=== PATIENT | female | born 1960 | race Caucasian/White ===

== ENCOUNTER 2020-10-20 01:21 | Emergency (ER) | payer SELFPAY ==
[2020-10-20 01:24] VITALS: BP 180/76; PULSE 69; RESP 18; TEMP 36.4; O2SAT 95; BMI 29.6
--- NOTE | 2020-10-20 01:51 | ECG_ITS ---
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
[2020-10-20 01:52] VITALS: PULSE 60; RESP 18; O2SAT 95
--- NOTE | 2020-10-20 02:01 | ED_ITS ---
HPI - General Adult General: Chief complaint: General Medical Stated complaint: high blood pressure Time Seen by Provider: 10/20/20 01:52 History of Present Illness: HPI narrative: 60-year-old female comes in tonight with complaints of short of breath and some chest discomfort. Patient also has had elevated blood pressure throughout the day. Patient has a history of hypertension, hyperlipidemia, diabetes. Patient takes amlodipine, metoprolol tartrate glipizide, simvastatin. Patient does smoke cigarettes. Patient appears well. Patient's blood pressure was 170 at home. Patient refused chest x-ray stating that she does not believe that this has anything to do with her shortness of breath. Associated symptoms: Reports chest pain and dyspnea Review of Systems General: Reports: 10 or more systems reviewed and unremarkable except in HPI and below Card: Reports: chest pain Resp: Reports: dyspnea Physical Exam Const: COMMON NORMALS: no acute distress and patient oriented x3 GENERAL APPEARANCE: cooperative HENMT: COMMON NORMALS: normocephalic and Normal external nose present HEAD & SCALP: normal to inspection and normocephalic NOSE: Normal external nose present MOUTH: Normal oral and palatal mucosa present THROAT: posterior oropharynx normal Eye: GENERAL EYE: appearance normal, both eyes and all related structures Neck/C-Spine: COMMON NORMALS: full ROM Lymph: LYMPHATIC: no lymphadenopathy noted Chest: COMMONS NORMALS: normal inspection of the chest Resp: COMMON NORMALS: normal respiratory effort EFFORT & INSPECTION: Yes able to speak in complete sentences Cardio: COMMON NORMALS: regular rate and regular rhythm RATE: regular rate RHYTHM: regular rhythm GI: COMMON NORMALS: non-tender Back/Pelvis: COMMON NORMALS: thoracic and lumbar spine normal to inspection Extremity: COMMON NORMALS: normal to inspection (no edema) Neuro: COMMON NORMALS: patient oriented x3 and moves all extremities Psych: COMMON NORMALS: mental status grossly normal and cooperative Skin: COMMON NORMALS: no rashes or lesions noted GENERAL SKIN EXAM: no rashes or lesions noted Course Vital Signs: Vital signs: Vital Signs Temperature 97.6 F 10/20/20 01:24 Pulse Rate 60 10/20/20 01:52 Respiratory Rate 17 10/20/20 02:07 Blood Pressure 180/76 10/20/20 01:24 Pulse Oximetry 95 10/20/20 01:52 MDM - General Adult MDM Narrative: Medical decision making narrative: 60-year-old female comes in today with complaints of high blood pressure. Patient is also reported some shortness of breath and chest discomfort. On exam heart rate was regular, patient had some coarse lung sounds, no edema was noted in the lower extremities, vital signs noted to elevated blood pressure of 180/76. Differential diagnosis includes not limited to uncontrolled blood pressure, ACS, CHF. Patient refused to wait for laboratory results and had refused x-ray. Patient signed out AMA even though she was given the risks and benefits of staying. Lab Data: Labs: Lab Results 10/20/20 Range/Units 02:06 WBC 5.5 (4.0-10.0) 10^3/ uL RBC 4.28 (4.1-5.3) 10^6/u L Hgb 12.8 (11.5-15.3) g/dL Hct 39.4 (37.0-47.0) % MCV 92.1 (81-99) fL MCH 29.9 (28.0-34.0) pg MCHC 32.5 (30.0-36.0) g/dL RDW 12.6 (12.1-15.1) % Plt Count 254 (130-400) 10^3/c mm MPV 9.8 (7.4-10.4) fL Neut % (Auto) 45.4 % Lymph % (Auto) 42.1 % Cherry % (Auto) 7.0 % Eos % (Auto) 4.6 % Baso % (Auto) 0.7 % Neut # (Auto) 2.48 (1.8-7.7) 10^3/u L Lymph # (Auto) 2.3 (0.8-4.8) 10^3/u L Cherry # (Auto) 0.4 (0.2-0.9) 10^3/u L Eos # (Auto) 0.3 (0.0-0.8) 10^3/u L Baso # (Auto) 0.0 (0.0-0.1) 10^3/u L Nucleated RBC % (a uto) 0 % Nucleated RBCs # 0.0 /100WBC EKG Data^: EKG 1: Attestation: I personally reviewed and interpreted this EKG as follows: (2:00, EKG shows a sinus rhythm with sinus arrhythmia, slight irregular rate at [address] elevation no ectopy noted.) Discharge Plan Discharge Prescriptions: No Action amlodipine 5 mg PO DAILY RF: 0 Coding Level of Care Code ED [place] Feeder for [place] Fwd Exam Comprehensive
[2020-10-20 02:07] VITALS: RESP 17
[2020-10-20 02:20] LABS: Basophils % 0.7 %; Eosinophils # 0.3 10^3/uL (0.0-0.8); Eosinophils % 4.6 %; Hematocrit 39.4 % (37.0-47.0); Hemoglobin 12.8 g/dL (11.5-15.3); Lymphocytes # 2.3 10^3/uL (0.8-4.8); Lymphocytes % 42.1 %; Mean Corpuscular HGB Conc 32.5 g/dL (30.0-36.0); Mean Corpuscular Hemoglobin 29.9 pg (28.0-34.0); Mean Corpuscular Volume 92.1 fL (81-99); Mean Platelet Volume 9.8 fL (7.4-10.4); Monocytes # 0.4 10^3/uL (0.2-0.9); Neutrophils # 2.48 10^3/uL (1.8-7.7); Neutrophils % 45.4 %; Nucleated Red Blood Cells % 0 %; Platelet Count 254 10^3/cmm (130-400); Red Blood Count 4.28 10^6/uL (4.1-5.3); Red Cell Distribution Width 12.6 % (12.1-15.1); White Blood Count 5.5 10^3/uL (4.0-10.0)
[2020-10-20 02:41] LABS: Troponin(5th) Baseline 15 ng/L (0-10)
[2020-10-20 02:50] LABS: Alanine Aminotransferase 22 U/L (0-33); Albumin Level 4.3 g/dL (3.5-5.2); Alkaline Phosphatase 96 IU/L (35-105); Aspartate Amino Transferase 18 U/L (0-32); Blood Urea Nitrogen 18 mg/dL (6-20); Calcium 9.1 mg/dL (8.5-10.5); Carbon Dioxide 25 mmol/L (22-29); Chloride 103 mmol/L (98-107); Globulin 2.5 g/dL (1.3-4.6); Glomerular Filtration Rate 102.3 mL/min (90-130); Glucose 128 mg/dL (65-115); NT Pro B Type Natriuretic Pept 214 pg/mL (0-125); Osmolality Calculated 290 mOsm/kg (285-295); Sodium 138 mmol/L (136-145); Total Bilirubin 0.2 mg/dL (0.15-1.2); Total Protein 6.8 g/dL (6.6-8.7)
== END 2020-10-20 02:45 | disposition left against medical advice (07) ==
PROVIDERS: Emergency Provider Nurse Practitioner Family; PCP Family Medicine
DX: R06.02 Shortness of breath (principal); R07.89 Other chest pain
CPT/HCPCS: 80053; 83880; 84484; 85025; 93005; 99283

== ENCOUNTER 2021-01-23 08:25 | Outpatient (CLI) | payer SELFPAY ==
--- NOTE | 2021-01-23 08:33 | XR_ITS ---
WS: [id number] Lumbar spine, 3 views, 01/23/2021 Clinical Data: DORSALGIA Comparison: None. Findings: No compression fractures or subluxation is seen. There is degenerative disc narrowing at all lumbar l evels except L3-L4.. The transverse processes and SI joints are normal. There is a dextroscoliosis. Minimal osteoarthritic change of all the lumbar vertebral bodies is noted . There are clips in the right upper quadrant from a cholecystectomy. XR/XR lumbar spine 2-3V* [id number] Impression: 1. Multiple levels of degenerative disc narrowing. 2. Minimal dextroscoliosis and osteoarthritis.
== END 2021-01-23 08:26 | disposition home or self-care (01) ==
LOC: RAD 08:29
PROVIDERS: PCP Family Medicine; Visit Provider Family Medicine
DX: M54.5 Low back pain (principal)
CPT/HCPCS: 72100

== ENCOUNTER 2021-04-17 04:06 | Emergency (ER) | payer SELFPAY ==
[2021-04-17 04:14] VITALS: PULSE 92; RESP 21; O2SAT 92; BMI 29.2
--- NOTE | 2021-04-17 04:18 | ECG_ITS ---
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 Measurements Intervals [place] Rate: 58 P: 70 UT: 170 QRS: 53 QRSD: 115 T: 47 QT: 455 QTc: 450 Interpretive Statements SINUS BRADYCARDIA WITH OCCASIONAL VENTRICULAR PREMATURE COMPLEXES POSSIBLE ANTERIOR MYOCARDIAL INFARCTION , OF INDETERMINATE AGE [30 ms Q WAVE IN V3/V4, OR R < 0.2 mV IN V4] Compared to ECG 10/20/2020 01:41:10 Ventricular premature complex(es) now present Myocardial infarct finding now present Sinus rhythm no longer present Sinus arrhythmia no longer present Electronically Signed On 04-17-2021 19:34:52 CDT by Hernandez Hunt M.D. [id number] f
--- NOTE | 2021-04-17 04:18 | XRR_ITS ---
PROCEDURE INFORMATION: Exam: XR Chest Exam date and time: 04/17/2021 4:18 AM Age: 60 years old Clinical indication: Cough and shortness of breath; Prior surgery; Surgery type: Open heart; Patient HX: Cough with SOB. Patient states diagnosed with bronchitis on Thursday. TECHNIQUE: Imaging protocol: XR of the chest. Views: 1 view. COMPARISON: CR Chest 1 [place] [id number] 12/19/2014 5:59 PM FINDINGS: Lungs: Hyperinflation of the lungs with changes of emphysema. Increased perihilar markings and peribronchial cuffing. No cosolidation. Pleural spaces: Unremarkable. No pleural effusion. No pneumothorax. Heart/Mediastinum: No cardiomegaly. Bones/joints: Previous median sternotomy. XR/XR chest 1V portable [id number] IMPRESSION: Findings suggestive of viral and/or reactive airway disease.
--- NOTE | 2021-04-17 04:28 | ED_ITS ---
HPI - SOB/Dyspnea General: Chief Complaint: Shortness of Breath/Dyspnea Stated Complaint: SOB\Blood Pressure High Has Bronchitis Time Seen by Provider: 04/17/21 04:14 Source: patient Mode of arrival: ambulatory Limitations: no limitations History of Present Illness: HPI Narrative: 60-year-old female states that over the last 4 to 5 days been having cough congestion's and increased wheezing. She is a smoker denies having echo vaccine. She states she was seen yesterday by her PCP had no x-ray work testing was diagnosed bronchitis start azithromycin prednisone. States she has had worsening dyspnea tonight. Here she is able to speak and full sentences. She denies any chest pain. States she felt like she had high blood pressure but did not check it at home. Associated symptoms: Deny abdominal pain, chest pain, fever(s), nausea or vomiting Review of Systems Const: Denies: fever(s), chills, body aches or change in appetite Eyes: Denies: blurry vision or eye discomfort ENMT: Denies: throat pain or dental pain Card: Denies: chest pain Resp: Reports: dyspnea, non-productive cough and wheezing GI: Denies: abdominal pain, nausea, vomiting or diarrhea : Denies: dysuria Musc: Denies: neck pain or back pain Skin/Breast: Denies: rash Neuro: Denies: headache(s) Psych: Denies: depression Tung/Lymph: Denies: easy bruising All/Imm: Denies: urticaria PFSH ED PFSH: Social History Smoking and tobacco status: current every day smoker Physical Exam Const: COMMON NORMALS: no acute distress, patient oriented x3 and healthy appearing HENMT: COMMON NORMALS: normocephalic and atraumatic HEAD & SCALP: normocephalic and atraumatic Eye: COMMON NORMALS: Equal, round and reactive pupils present and EOMs intact bilaterally PUPIL: Yes Equal, round and reactive pupils present Neck/C-Spine: COMMON NORMALS: full ROM and supple Chest: COMMONS NORMALS: normal inspection of the chest and normal palpation of entire chest wall Resp: COMMON NORMALS: normal respiratory effort, No retractions and No use of accessory muscles AUSCULTATION: wheezes Cardio: COMMON NORMALS: regular rate, regular rhythm and No murmurs present (Cardio) RATE: regular rate RHYTHM: regular rhythm GI: COMMON NORMALS: Normal to inspection, nondistended, normoactive bowel sounds present, Soft to palpation, non-tender and no masses PALPATION: Yes Soft to palpation Extremity: COMMON NORMALS: normal to inspection and full ROM Neuro: COMMON NORMALS: patient oriented x3, moves all extremities and no focal motor deficits Psych: COMMON NORMALS: mental status grossly normal, Normal thought process present and cooperative THOUGHT PROCESS: Normal thought process present Skin: COMMON NORMALS: no rashes or lesions noted and no wounds GENERAL SKIN EXAM: no rashes or lesions noted Course Vital Signs: Vital signs: Vital Signs Pulse Rate 63 04/17/21 05:10 Respiratory Rate 17 04/17/21 05:10 Pulse Oximetry 93 04/17/21 05:10 MDM - SOB/Dyspnea MDM Narrative: Medical decision making narrative: Patient presents here with cough congestion likely an upper respiratory infection. X-ray shows no pneumonia patient's Covid and blood work are all negative. She is well-appearing here. She feels much improved here after breathing treatment. She is to continue her steroids and antibiotic and follow-up with PCP and return if worsening. She understands agrees to plan. Lab Data: Labs: Lab Results 04/17/21 04/17/21 04/17/21 Range/Units 04:27 04:27 04:27 WBC 8.0 (4.0-10.0) 10^3/ uL RBC 4.41 (4.1-5.3) 10^6/u L Hgb 13.3 (11.5-15.3) g/dL Hct 39.9 (37.0-47.0) % MCV 90.5 (81-99) fl MCH 30.2 (28.0-34.0) pg MCHC 33.3 (30.0-36.0) g/dL RDW 12.2 (12.1-15.1) % Plt Count 265 (130-400) 10^3/c mm MPV 9.5 (7.4-10.4) fL Neut % (Auto) 51.7 % Lymph % (Auto) 38.3 % [place] % (Auto) 6.8 % Eos % (Auto) 2.5 % Baso % (Auto) 0.3 % Neut # (Auto) 4.13 (1.8-7.7) 10^3/u L Lymph # (Auto) 3.1 (0.8-4.8) 10^3/u L [place] # (Auto) 0.5 (0.2-0.9) 10^3/u L Eos # (Auto) 0.2 (0.0-0.8) 10^3/u L Baso # (Auto) 0.0 (0.0-0.1) 10^3/u L Nucleated RBC % (a uto) 0 % Nucleated RBCs # 0.0 /100WBC Sodium 136 (136-145) mmol/L Potassium 4.0 (3.5-5.1) mmol/L Chloride 99 (98-107) mmol/L Carbon Dioxide 27 (22-29) mmol/L Anion Gap 14.0 (5-19) BUN 17 (6-20) mg/dL Creatinine 0.5 (0.5-0.9) mg/dL GFR Calculation 126.3 (90-130) mL/min Glucose 127 H (65-115) mg/dL Calculated Osmolal ity 285 (285-295) mOsm/k g Calcium 9.5 (8.5-10.5) mg/dL Total Bilirubin 0.4 (0.15-1.2) mg/dL AST 17 (0-32) U/L ALT 20 (0-33) U/L Alkaline Phosphata se 109 H (35-105) IU/L NT-Pro-B Natriuret Pep 322 H (0-125) pg/mL Total Protein 7.2 (6.6-8.7) g/dL Albumin 4.4 (3.5-5.2) g/dL Globulin 2.8 (1.3-4.6) g/dL SARS-CoV-2 Ag (Rap id) Negative (Negative) Imaging Data^: CXR: Attestation: I personally reviewed and interpreted this imaging study as follows: My impression: No acute abnormality EKG Data^: EKG 1: Attestation: I personally reviewed and interpreted this EKG as follows: EKG Interpretation Date: 04/17/21 EKG interpretation time: 04:45 Interpretation: sinus sade hr [address] or t wave abnormalities qrs 115 qtc 452 Discharge Plan Discharge Patient Disposition: Home Clinical Impression: Upper respiratory infection Qualifiers: URI type: unspecified URI Qualified Code(s): J06.9 - Acute upper respiratory infection, unspecified Condition: Stable Prescriptions: No Action glyburide 5 mg tablet 5 mg PO DAILY RF: 0 levothyroxine 13 mcg capsule 13 mcg PO DAILY RF: 0 lisinopril 10 mg tablet 10 mg PO DAILY RF: 0 simvastatin 10 mg tablet 10 mg PO DAILY RF: 0 albuterol sulfate [Ventolin HFA] 90 mcg/actuation HFA aerosol inhaler 2 puff inhalation Q6H PRNRF: 0 metoprolol tartrate 25 mg tablet 25 mg PO BID RF: 0 azithromycin 250 mg tablet See Rx Instructions PO .COMPLEX Qty: 6 RF: 0 prednisone 20 mg tablet 40 mg PO DAILY 5 Days Qty: 10 RF: 0 amlodipine 5 mg PO DAILY RF: 0 Discharge Orders: Discharge ED (Routine); Ordered 04/17/21 Ordered By: Jimi Swain Referrals: Michelle Motta MD [Primary Care Provider] - 1-3 days Discharge Diet: Advance as tolerated Discharge Activity: Resume usual activity Patient Instructions: Upper Respiratory Infection (ED) Coding Level of Care Code ED Delivery Department Supervisor for [place] Fwd Exam Comprehensive
[2021-04-17 04:36] VITALS: PULSE 65; RESP 18; O2SAT 92
[2021-04-17 04:37] LABS: Basophils % 0.3 %; Eosinophils # 0.2 10^3/uL (0.0-0.8); Eosinophils % 2.5 %; Hematocrit 39.9 % (37.0-47.0); Hemoglobin 13.3 g/dL (11.5-15.3); Lymphocytes # 3.1 10^3/uL (0.8-4.8); Lymphocytes % 38.3 %; Mean Corpuscular HGB Conc 33.3 g/dL (30.0-36.0); Mean Corpuscular Hemoglobin 30.2 pg (28.0-34.0); Mean Corpuscular Volume 90.5 fl (81-99); Mean Platelet Volume 9.5 fL (7.4-10.4); Monocytes # 0.5 10^3/uL (0.2-0.9); Monocytes % 6.8 %; Neutrophils # 4.13 10^3/uL (1.8-7.7); Neutrophils % 51.7 %; Nucleated Red Blood Cells % 0 %; Platelet Count 265 10^3/cmm (130-400); Red Blood Count 4.41 10^6/uL (4.1-5.3); Red Cell Distribution Width 12.2 % (12.1-15.1)
[2021-04-17 05:00] LABS: Alanine Aminotransferase 20 U/L (0-33); Albumin Level 4.4 g/dL (3.5-5.2); Alkaline Phosphatase 109 IU/L (35-105); Aspartate Amino Transferase 17 U/L (0-32); Blood Urea Nitrogen 17 mg/dL (6-20); Calcium 9.5 mg/dL (8.5-10.5); Carbon Dioxide 27 mmol/L (22-29); Chloride 99 mmol/L (98-107); Globulin 2.8 g/dL (1.3-4.6); Glomerular Filtration Rate 126.3 mL/min (90-130); Glucose 127 mg/dL (65-115); NT Pro B Type Natriuretic Pept 322 pg/mL (0-125); Osmolality Calculated 285 mOsm/kg (285-295); Sodium 136 mmol/L (136-145); Total Bilirubin 0.4 mg/dL (0.15-1.2); Total Protein 7.2 g/dL (6.6-8.7)
[2021-04-17 05:02] LABS: SARS Covid-2 Antigen Negative (Negative)
[2021-04-17 05:10] VITALS: PULSE 63; RESP 17; O2SAT 93
[2021-04-17] MEDS: ipratropium-albuterol 3 mL Neb INHALATION (05:10)
[2021-04-17 05:17] VITALS: PULSE 72
[2021-04-17 05:31] VITALS: BP 137/78; PULSE 76; RESP 20; O2SAT 91
== END 2021-04-17 05:34 | disposition home or self-care (01) ==
PROVIDERS: Emergency Provider Emergency Medicine; PCP Family Medicine
DX: J06.9 Acute upper respiratory infection, unspecified (principal); F17.210 Nicotine dependence, cigarettes, uncomplicated; Z20.822 Contact with and (suspected) exposure to COVID-19
CPT/HCPCS: 71045; 80053; 83880; 85025; 87426; 93005; 94640; 99283

== ENCOUNTER 2025-04-20 19:58 | Emergency (ER) | payer SELFPAY ==
[2025-04-20] VITALS (7 sets, daily range): BP systolic 117–151; BP diastolic 67–75; PULSE 74–81; RESP 16–19; TEMP 36.7; O2SAT 91–93; BMI 32.2
--- NOTE | 2025-04-20 20:02 | XRR_ITS ---
PROCEDURE INFORMATION: Exam: XR Chest Exam date and time: 04/20/2025 8:06 PM Age: 64 years old Clinical indication: Cough and dyspnea; Additional info: Dyspnea/cough TECHNIQUE: Imaging protocol: Radiologic exam of the chest. Views: 1 view. COMPARISON: CR XR chest 1V portable [id number] 04/17/2021 4:14 AM FINDINGS: Lungs: Right mid lung field 6.9 cm mass, further evaluation with chest CT advised. Bibasilar airspace infiltrates. Pleural spaces: Unremarkable. No pleural effusion. No pneumothorax. Heart/Mediastinum: Cardiomegaly. Bones/joints: Sternotomy wires. XR/XR chest 1V portable [id number] IMPRESSION: 1. Right mid lung field 6.9 cm mass, further evaluation with chest CT advised. 2. Cardiomegaly. 3. Bibasilar airspace infiltrates. 4. Sternotomy wires.
--- NOTE | 2025-04-20 20:02 | CTR_ITS ---
PROCEDURE INFORMATION: Exam: CTA Chest With Contrast Exam date and time: 04/20/2025 8:52 PM Age: 64 years old Clinical indication: Cough and shortness of breath and other: Hemoptysis TECHNIQUE: Imaging protocol: Computed tomographic angiography of the chest with contrast. Exam focused on the arteries. 3D rendering (Not supervised by radiologist): MIP and/or 3D reconstructed images were created by the technologist. Radiation optimization: All CT scans at this facility use at least one of these dose optimization techniques: automated exposure control; mA and/or kV adjustment per patient size (includes targeted exams where dose is matched to clinical indication); or iterative reconstruction. Contrast material: OMNI 350; Contrast volume: 100 ml; Contrast route: INTRAVENOUS (IV); COMPARISON: CR (CHEST, ) 04/20/2025 8:06 PM RADIATION DOSE METRICS: Total DLP (mGy-cm): 381.01 FINDINGS: Pulmonary arteries: Normal. No pulmonary emboli. Aorta: Unremarkable. No aortic aneurysm. No aortic dissection. Lungs: Unremarkable. No consolidation. No masses. Pleural spaces: Unremarkable. No pneumothorax. No pleural effusion. Heart: Cardiomegaly. Coronary artery atherosclerotic calcifications. Lymph nodes: Right hilar mass extending into the right lower lobe measuring up to 7 cm encasing the right hilar vascular and airway structures with associated right hilar adenopathy and enlarged lymph nodes measuring up to 14.5 cm consistent with a malignant process, tissue correlation advised. Liver: Hepatic steatosis. Gallbladder and biliary ducts: Cholecystectomy. Bones/joints: Sternotomy changes. Soft tissues: Unremarkable. CT/CT angio chest PE protcl [id number] IMPRESSION: 1. Right hilar mass extending into the right lower lobe measuring up to 7 cm encasing the right hilar vascular and airway structures with associated right hilar adenopathy and enlarged lymph nodes measuring up to 14.5 cm consistent with a malignant process, tissue correlation advised. 2. Hepatic steatosis. 3. Cholecystectomy.
--- NOTE | 2025-04-20 20:02 | ECG_ITS ---
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 Measurements Intervals [place] Rate: 74 P: 64 AR: 151 QRS: 22 QRSD: 102 T: 63 QT: 406 QTc: 451 Interpretive Statements SINUS RHYTHM POSSIBLE ANTERIOR MYOCARDIAL INFARCTION , PROBABLY OLD [30 ms Q WAVE IN V3/V4, OR R < 0.2 mV IN V4] Compared to ECG 04/17/2021 04:45:01 Sinus bradycardia no longer present Ventricular premature complex(es) no longer present Myocardial infarct finding still present Electronically Signed On 04-21-2025 09:10:50 CDT by Bola Lowery M.D. [email or web address] [id number]
--- NOTE | 2025-04-20 20:06 | ED_ITS ---
HPI - General Adult 2 General: Chief complaint: Shortness of Breath/Dyspnea Stated complaint: SOB coughing up blood Time Seen by Provider: 04/20/25 20:01 History of Present Illness: 64-year-old female presents to the [facility] room last several days she has had cough and wheezing she is now having some blood tinged mucus at times. No chest pain. No fever sweats or chills. Patient is a former smoker. No history of DVT or PE. Associated symptoms: Deny chest pain, dyspnea or rash Related Data Home Medications ?Medication ?Instructions ?Recorded ?Confirmed albuterol sulfate 90 mcg/actuation 2 puff inhalation Q 6H PRN 12/15/20 02/06/25 aerosol inhaler (Ventolin HFA) metoprolol tartrate 25 mg tablet 25 mg PO BID 04/15/21 02/06/25 hydrocodone 5 mg-acetaminophen 500 tab PO 02/14/24 mg tablet amlodipine 10 mg tablet mg PO 02/06/25 02/06/25 aspirin 81 mg tablet,delayed 81 mg PO DAILY 02/06/25 0 02/06/25 release (Adult Low Dose Aspirin) glipizide 5 mg tablet mg PO 02/06/25 02/06/25 levothyroxine 88 mcg tablet mcg PO 02/06/25 02/06/25 lisinopril 20 mg tablet mg PO 02/06/25 02/06/25 simvastatin 20 mg tablet mg PO 02/06/25 02/06/25 Previous Rx's ?Medication ?Instructions ?Recorded azithromycin 500 mg tablet 500 mg PO DAILY 5 days #5 t abs 02/06/25 Allergies Allergy/AdvReac Type Severity Reaction Status Date / Time amoxicillin Allergy ALGY-Hives Verified 04/20/25 20:18 Review of Systems 2 Const: Denies: fever(s) or chills Card: Denies: chest pain Resp: Reports: productive cough and hemoptysis; Denies: dyspnea GI: Denies: abdominal pain : Denies: dysuria, urinary frequency or urinary urgency Musc: Denies: neck pain or back pain Skin/Breast: Denies: rash PFSH ED 2 PFSH: Social History Smoking and tobacco/nicotine status: current every day tobacco/nicotine user Physical Exam 2 Const: COMMON NORMALS: no acute distress GENERAL APPEARANCE: cooperative and comfortable ORIENTATION/CONSCIOUSNESS: Yes awake, Yes oriented to person, Yes oriented to place and Yes oriented to time HENMT: COMMON NORMALS: normocephalic, atraumatic and hearing grossly normal bilaterally HEAD & SCALP: normocephalic and atraumatic Resp: COMMON NORMALS: normal respiratory effort, No retractions, No use of accessory muscles and clear to auscultation bilaterally AUSCULTATION: clear to auscultation bilaterally Cardio: COMMON NORMALS: regular rate, regular rhythm and No murmurs present (Cardio) RATE: regular rate RHYTHM: regular rhythm GI: COMMON NORMALS: Soft to palpation and No hepatosplenomegaly present A USCULTATION: Yes normoactive bowel sounds PALPATION: Yes Soft to palpation, No Tenderness to palpation present (GI), No Guarding due to palpation present (GI) and Yes No hepatosplenomegaly present Extremity: COMMON NORMALS: normal to inspection, capillary refill normal, no clubbing, cyanosis or edema, no calf tenderness and no pedal edema Neuro: SENSORIUM/ORIENTATION: Yes oriented to person, Yes oriented to place and Yes oriented to time Skin: COMMON NORMALS: no rashes or lesions noted GENERAL SKIN EXAM: no rashes or lesions noted Course 2 Vital Signs: Vital signs: Vital Signs Temperature 98.1 F 04/20/25 21:30 Pulse Rate 74 04/20/25 22:41 Respiratory Rate 16 04/20/25 22:00 Blood Pressure 151/67 04/20/25 22:41 Pulse Oximetry 93 04/20/25 22:41 Oxygen Delivery Me thod Room Air 04/20/25 20:17 MDM - General Adult Medical Decision Making CT shows right lung mass Is 7 cm encasing the hilar vasculature and airway structures. There is associated enlarged lymphadenopathy. Reviewed findings with the patient we will refer her to the interventional pulmonary clinic for further evaluation and diagnosis. Medical Records I reviewed the patient's medical records. Lab Data I reviewed the patient's lab results. 04/20/25 20:12 04/20/25 20:12 Radiology Impressions Chest CTA 04/20/25 20:02 IMPRESSION: 1. Right hilar mass extending into the right lower lobe measuring up to 7 cm encasing the right hilar vascular and airway structures with associated right hilar adenopathy and enlarged lymph nodes measuring up to 14.5 cm consistent with a malignant process, tissue correlation advised. 2. Hepatic steatosis. 3. Cholecystectomy. Chest X-Ray 04/20/25 20:02 IMPRESSION: 1. Right mid lung field 6.9 cm mass, further evaluation with chest CT advised. 2. Cardiomegaly. 3. Bibasilar airspace infiltrates. 4. Sternotomy wires. Laboratory Results WBC 5.70 10^3/uL (3.29-11.43) 04/20/25 20:12 RBC 4.41 10^6/uL (3.85-5.65) 04/20/25 20:12 Hgb 12.60 g/dL (11.27-16.99) 04/20/25 20:12 Hct 37.8 % (36-47) 04/20/25 20:12 MCV 85.7 fl (85-98) 04/20/25 20:12 MCH 28.6 pg (27-33) 04/20/25 20:12 MCHC 33.3 g/dL (30-55) 04/20/25 20:12 RDW 12.9 % (12.1-15.1) 04/20/25 20:12 Plt Count 298 10^3/cmm (157-399) 04/20/25 20:12 MPV 9.9 fL (7.4-10.4) 04/20/25 20:12 Neut % (Auto) 46.6 % 04/20/25 20:12 Lymph % (Auto) 40.0 % 04/20/25 20:12 [place] % (Auto) 6.8 % 04/20/25 20:12 Eos % (Auto) 5.3 % 04/20/25 20:12 Baso % (Auto) 0.9 % 04/20/25 20:12 Neut # (Auto) 2.66 10^3/uL (1.8-7.7) 04/20/25 20:12 Lymph # (Auto) 2.3 10^3/uL (0.8-4.8) 04/20/25 20:12 [place] # (Auto) 0.4 10^3/uL (0.2-0.9) 04/20/25 20:12 Eos # (Auto) 0.3 10^3/uL (0.0-0.8) 04/20/25 20:12 Baso # (Auto) 0.1 10^3/uL (0.0-0.1) 04/20/25 20:12 Nucleated RBC % (auto) 0 % 04/20/25 20:12 Nucleated RBCs # 0.0 /100WBC 04/20/25 20:12 Sodium 137 mmol/L (136-145) 04/20/25 20:12 Potassium 4.3 mmol/L (3.5-5.1) 04/20/25 20:12 Chloride 100 mmol/L (98-107) 04/20/25 20:12 Carbon Dioxide 25 mmol/L (22-29) 04/20/25 20:12 Anion Gap 16.3 (5-19) 04/20/25 20:12 BUN 15 mg/dL (8-23) 04/20/25 20:12 Creatinine 0.8 mg/dL (0.5-0.9) 04/20/25 20:12 GFR Calculation 72.4 mL/min (90-130) L 04/20/25 20:12 Glucose 318 mg/dL (65-115) H 04/20/25 20:12 Calculated Osmolality 297 mOsm/kg (285-295) H 04/20/25 20:12 Calcium 9.3 mg/dL (8.5-10.5) 04/20/25 20:12 Total Bilirubin 0.3 mg/dL (0.15-1.2) 04/20/25 20:12 AST 15 U/L (0-32) 04/20/25 20:12 ALT 19 U/L (0-33) 04/20/25 20:12 Alkaline Phosphatase 146 U/L (35-105) H 04/20/25 20:12 Total Protein 7.5 g/dL (6.6-8.7) 04/20/25 20:12 Albumin 3.9 g/dL (3.5-5.2) 04/20/25 20:12 Globulin 3.6 g/dL (1.3-4.6) 04/20/25 20:12 All radiology interpretation(s) finalized by discharge EKG Data EKG 1: Interpretation: EKG 04/20/2025 sinus rhythm rate of 74 irritable 151 QTc 451. Unchanged from previous EKG 04/17/2021 Computer generated interpretation: Chest CTA 04/20/25 20:02 IMPRESSION: 1. Right hilar mass extending into the right lower lobe measuring up to 7 cm encasing the right hilar vascular and airway structures with associated right hilar adenopathy and enlarged lymph nodes measuring up to 14.5 cm consistent with a malignant process, tissue correlation advised. 2. Hepatic steatosis. 3. Cholecystectomy. Chest X-Ray 04/20/25 20:02 IMPRESSION: 1. Right mid lung field 6.9 cm mass, further evaluation with chest CT advised. 2. Cardiomegaly. 3. Bibasilar airspace infiltrates. 4. Sternotomy wires. Discharge Plan Discharge Patient Disposition: Home Clinical Impression: Mass of right lung Condition: Stable Prescriptions: No Action albuterol sulfate [Ventolin HFA] 90 mcg/actuation HFA aerosol inhaler 2 puff inhalation Q6H PRN metoprolol tartrate 25 mg tablet 25 mg PO BID hydrocodone-acetaminophen 5-500 mg tablet PO lisinopril 20 mg tablet PO levothyroxine 88 mcg tablet PO amlodipine 10 mg tablet PO simvastatin 20 mg tablet PO glipizide 5 mg tablet PO aspirin [Adult Low Dose Aspirin] 81 mg tablet,delayed release (DR/EC) 81 mg PO DAILY azithromycin 500 mg tablet 500 mg PO DAILY 5 Days Qty: 5 0RF Discharge Orders: Discharge ED (Routine); Ordered 04/20/25 Ordered By: Yosef Hylton Discharge Diet: Usual diet Discharge Activity: Resume usual activity Patient Instructions: Opioid Safety, Pain Management, Patient Portal & Tyler Instructions Activity Restrictions/Additional Instructions: Thank you for choosing [facility] for your healthcare needs today. It is very important that you follow up as instructed or that you return to the Emergency Department should you have concerns or if your condition changes or worsens in any way. Emergency department visits are focused on emergent conditions, in some cases you may require further evaluation on an outpatient basis. You were seen in the emergency room with complaints of coughing up blood. CT evaluation shows you do not have a blood clot in the lungs however there is a mass in the right lung that we will need further evaluation. marketing automation manager will make arrangements for you to follow-up with the interventional computational chemist in the clinic. They will work with you to have this mass biopsied to get a definitive diagnosis. (Please note that included in your discharge packet is information concerning opioid safety and pain management. This information is given to all patients were discharged from the ER regardless of their discharge diagnosis or the medicines they usually take or are prescribed.) Print Language: Syriac Coding Level of Care Code ED Bellows Filler for Mark Pepe
[2025-04-20 20:35] LABS: Hematocrit 37.8 % (36-47); Hemoglobin 12.60 g/dL (11.27-16.99); Mean Corpuscular HGB Conc 33.3 g/dL (30-55); Mean Corpuscular Hemoglobin 28.6 pg (27-33); Mean Corpuscular Volume 85.7 fl (85-98); Nucleated Red Blood Cells % 0 %; Platelet Count 298 10^3/cmm (157-399); Red Blood Count 4.41 10^6/uL (3.85-5.65); White Blood Count 5.70 10^3/uL (3.29-11.43)
[2025-04-20 20:44] LABS: Alanine Aminotransferase 19 U/L (0-33); Albumin Level 3.9 g/dL (3.5-5.2); Alkaline Phosphatase 146 U/L (35-105); Anion Gap 16.3 (5-19); Aspartate Amino Transferase 15 U/L (0-32); Blood Urea Nitrogen 15 mg/dL (8-23); Calcium 9.3 mg/dL (8.5-10.5); Carbon Dioxide 25 mmol/L (22-29); Chloride 100 mmol/L (98-107); Creatinine Clr Calc Pharmacy 65.0378; Globulin 3.6 g/dL (1.3-4.6); Glucose 318 mg/dL (65-115); Osmolality Calculated 297 mOsm/kg (285-295); Potassium 4.3 mmol/L (3.5-5.1); Sodium 137 mmol/L (136-145); Total Protein 7.5 g/dL (6.6-8.7)
[2025-04-20] MEDS: iohexol 350 mg/mL 500 mL Btl (per mL) IV (21:12)
== END 2025-04-20 22:42 | disposition home or self-care (01) ==
PROVIDERS: Emergency Provider Family Medicine
DX: R06.02 Shortness of breath (principal); R05.9 Cough, unspecified; R06.2 Wheezing; R91.8 Other nonspecific abnormal finding of lung field; Z79.82 Long term (current) use of aspirin; Z72.0 Tobacco use
CPT/HCPCS: 71045; 71275; 80053; 85025; 93005; 99285

== ENCOUNTER → 2025-04-24 14:18 | Outpatient (BNVA) | payer MEDICAID, SELFPAY | PROVIDERS: Visit Provider Internal Medicine | DX: Z53.9 Procedure and treatment not carried out, unspecified reason (principal) | CPT/HCPCS: 99204; 99999 ==

== ENCOUNTER 2025-04-26 13:46 | Outpatient (CLI) | payer SELFPAY | END 2025-04-26 13:47 | disposition home or self-care (01) | LOC: RAD 13:47 | PROVIDERS: Visit Provider Internal Medicine | DX: R06.02 Shortness of breath (principal) | CPT/HCPCS: 93306 ==

== ENCOUNTER 2025-04-29 18:34 | Emergency (ER) | payer MEDICAID, SELFPAY ==
[2025-04-29] VITALS (7 sets, daily range): BP systolic 95–130; BP diastolic 55–97; PULSE 65–73; RESP 20; TEMP 36.7; O2SAT 90–94; BMI 31.0
--- NOTE | 2025-04-29 19:55 | XRR_ITS ---
PROCEDURE INFORMATION: Exam: XR Chest Exam date and time: 04/29/2025 8:38 PM Age: 64 years old Clinical indication: Shortness of breath; Additional info: SOB TECHNIQUE: Imaging protocol: Radiologic exam of the chest. Views: 1 view. COMPARISON: CT angio chest PE protcl [id number] 04/20/2025 8:52 PM FINDINGS: Lungs: Redemonstrated right hilar mass. No new focal consolidation. Pleural spaces: Unremarkable. No pleural effusion. No pneumothorax. Heart/Mediastinum: Unremarkable. No cardiomegaly. Bones/joints: Unremarkable. XR/XR chest 1V portable [id number] IMPRESSION: 1. No acute cardiopulmonary findings. 2. Redemonstrated right hilar mass.
--- NOTE | 2025-04-29 20:00 | ECG_ITS ---
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 Measurements Intervals [place] Rate: 72 P: 57 NH: 147 QRS: 15 QRSD: 100 T: 47 QT: 408 QTc: 449 Interpretive Statements SINUS RHYTHM POSSIBLE ANTERIOR MYOCARDIAL INFARCTION , PROBABLY OLD [30 ms Q WAVE IN V3/V4, OR R < 0.2 mV IN V4] Compared to ECG 04/20/2025 20:07:04 No significant changes Electronically Signed On 04-29-2025 20:39:37 CDT by Arnulfo Nuñez M.D. [email or web address]
--- NOTE | 2025-04-29 20:00 | PC.NURSE ---
Pt is WR and c/o substernal chest pain and feeling like she can't get a deep breath. Vitals rechecked ( documented in chart) and ekg performed. Pt reports no changes to condition as time of check in. Provider notified.
--- NOTE | 2025-04-29 20:33 | W.ED.GENADLT ---
HPI - General Adult General: Chief complaint: General Medical Stated complaint: Coughing and spitting up blood Time Seen by Provider: 04/29/25 20:24 History of Present Illness: Patient is 64-year-old female, diabetic, HTN, hypothyroidism, presented to ED with increasing coughing and spitting up blood. She has association of wheezes. No upper respiratory symptoms, no rhinorrhea, no fever, no chills, no sick contact. She does have association of chest discomfort as an tightness. Associated symptoms: Reports chest pain (tightness) and dyspnea; Deny headache(s), nausea or vomiting Related Data Home Medications ?Medication ?Instructions ?Recorded ?Confirmed albuterol sulfate 90 mcg/actuation 2 puff inhalation Q6H PRN 12/15/20 04/24/25 aerosol inhaler (Ventolin HFA) metoprolol tartrate 25 mg tablet 25 mg PO BID 04/15/21 04/24/25 hydrocodone 5 mg-acetaminophen 500 tab PO 02/14/24 04/24/25 mg tablet amlodipine 10 mg tablet mg PO 02/06/25 04/24/25 aspirin 81 mg tablet,delayed 81 mg PO DAILY 02/06/25 04/24/25 release (Adult Low Dose Aspirin) glipizide 5 mg tablet mg PO 02/06/25 04/24/25 levothyroxine 88 mcg tablet mcg PO 02/06/25 04/24/25 lisinopril 20 mg tablet mg PO 02/06/25 04/24/25 simvastatin 20 mg tablet mg PO 02/06/25 04/24/25 Previous Rx's ?Medication ?Instructions ?Recorded azithromycin 500 mg tablet 500 mg PO DAILY 5 days #5 tabs 02/06/25 doxycycline hyclate 100 mg capsule 100 mg PO BID 10 days #20 caps 04/29/25 methylprednisolone 4 mg tablets in See Rx Instructions PO .COMPLEX 04/29/25 a dose pack (Medrol (Cameron)) #21 ea Allergies Allergy/AdvReac Type Severity Reaction Status Date / Time amoxicillin Allergy ALGY-Hives Verified 04/24/25 14:47 naproxen Allergy ALGY-Hives Verified 04/29/25 18:47 Review of Systems General: Reports: 10 or more systems reviewed and unremarkable except in HPI and below Const: Denies: fever(s) ENMT: Reports: throat pain, nasal discharge, nasal congestion and post nasal drip Card: Reports: chest pain (tightness), dyspnea on exertion and orthopnea; Denies: swelling of feet/ankles or lightheadedness Resp: Reports: dyspnea, productive cough, wheezing, pain on inspiration, hemoptysis and chest congestion; Denies: non-productive cough GI: Denies: abdominal pain, nausea, vomiting or dysphagia : Denies: flank pain or difficulty voiding Musc: Denies: neck pain, back pain or extremity pain Neuro: Denies: headache(s) or numbness in extremities Psych: Reports: anxiety Tung/Lymph: Denies: easy bruising All/Imm: Reports: seasonal rhinorrhea (bronchial asthma) PFSH ED PFSH: Social History Smoking and tobacco/nicotine status: former use of tobacco/nicotine (04/2024) Physical Exam Const: COMMON NORMALS: no acute distress, average body habitus, patient oriented x3, no limitations, healthy appearing, alert and well nourished GENERAL APPEARANCE: well kempt HENMT: COMMON NORMALS: normocephalic and atraumatic HEAD & SCALP: normocephalic and atraumatic EXTERNAL EAR: Yes other (Hard of hearing) Eye: COMMON NORMALS: Equal, round and reactive pupils present, EOMs intact bilaterally and conjunctivae normal CONJUNCTIVA: Yes conjunctivae normal PUPIL: Yes Equal, round and reactive pupils present Neck/C-Spine: COMMON NORMALS: full ROM and no lymphadenopathy Lymph: LYMPHATIC: no lymphadenopathy noted Chest: COMMONS NORMALS: normal inspection of the chest and normal palpation of entire chest wall Resp: COMMON NORMALS: normal respiratory effort and No retractions AUSCULTATION: wheezes scattered wheezes Cardio: COMMON NORMALS: regular rate and regular rhythm RATE: regular rate RHYTHM: regular rhythm GI: COMMON NORMALS: Normal to inspection, nondistended, normoactive bowel sounds present, Soft to palpation, non-tender and No hepatosplenomegaly present PALPATION: Yes Soft to palpation and Yes No hepatosplenomegaly present : COMMON NORMALS: Yes no CVA tenderness BLADDER/KIDNEY EXAM: Yes no CVA tenderness Back/Pelvis: COMMON NORMALS: no CVA tenderness and thoracic and lumbar spine normal to inspection Extremity: COMMON NORMALS: normal to inspection, full ROM and capillary refill normal Neuro: COMMON NORMALS: patient oriented x3 SENSORIUM/ORIENTATION: Yes alert Psych: COMMON NORMALS: mental status grossly normal, Normal thought process present, cooperative, normal affect and speech normal APPEARANCE: Yes grossly normal and Yes well kempt ATTITUDE: Yes calm ACTIVITY/MOTOR BEHAVIOR: Yes appropriate eye contact SPEECH: Yes normal speech THOUGHT PROCESS: Normal thought process present Course Consultations: Consultation #1: Discussed with development scientist, Dr. Sapp, recommended outpatient antibiotics and follow-up Thursday. Procedure will be on Thursday. Patient is to return here for further issues. Vital Signs: Vital signs: Vital Signs Temperature 98.0 F 04/29/25 18:42 Pulse Rate 73 04/29/25 23:39 Respiratory Rate 20 H 04/29/25 19:54 Blood Pressure 116/59 04/29/25 23:39 Pulse Oximetry 91 04/29/25 23:39 Oxygen Delivery Me thod Room Air 04/29/25 23:38 MDM - General Adult Medical Decision Making Patient was here last , 3 days ago, diagnosed with lung cancer, and sent to pulmonology. Pulmonology had plans to follow-up with patient on Thursday, with procedure on Thursday. Local development scientist called me regarding her care, and any concern for admission. She is not having any leukocytosis or neutrophilia, however she has ongoing hemoptysis. No fevers. She does have association of chest tightness. Her D-dimer was negative. There is no reason for CTA at this time. Primary development scientist stated he would follow-up with patient on office visit Thursday with procedure on Thursday. Patient was encouraged to return to the ED for further issues. Medical Records I reviewed the patient's medical records. Lab Data I reviewed the patient's lab results. 04/29/25 20:52 04/29/25 20:52 Radiology Impressions Chest X-Ray 04/29/25 19:55 IMPRESSION: 1. No acute cardiopulmonary findings. 2. Redemonstrated right hilar mass. Laboratory Results WBC 6.76 10^3/uL (3.29-11.43) 04/29/25 20:52 RBC 4.42 10^6/uL (3.85-5.65) 04/29/25 20:52 Hgb 12.50 g/dL (11.27-16.99) 04/29/25 20:52 Hct 38.7 % (36-47) 04/29/25 20:52 MCV 87.6 fl (85-98) 04/29/25 20:52 MCH 28.3 pg (27-33) 04/29/25 20:52 MCHC 32.3 g/dL (30-55) 04/29/25 20:52 RDW 13.0 % (12.1-15.1) 04/29/25 20:52 Plt Count 293 10^3/cmm (157-399) 04/29/25 20:52 MPV 9.6 fL (7.4-10.4) 04/29/25 20:52 Neut % (Auto) 52.6 % 04/29/25 20: Lymph % (Auto) 34.6 % 04/29/25 20: [place] % (Auto) 6.1 % 04/29/25 20: Eos % (Auto) 5.5 % 04/29/25 20: Baso % (Auto) 0.9 % 04/29/25 20: Neut # (Auto) 3.56 10^3/uL (1.8-7.7) 04/29/25 20: Lymph # (Auto) 2.3 10^3/uL (0.8-4.8) 04/29/25 20:52 [place] # (Auto) 0.4 10^3/uL (0.2-0.9) 04/29/25 20: Eos # (Auto) 0.4 10^3/uL (0.0-0.8) 04/29/25 20:52 Baso # (Auto) 0.1 10^3/uL (0.0-0.1) 04/29/25 20: Nucleated RBC % (auto) 0 % 04/29/25: Nucleated RBCs # 0.0 /100WBC 04/29/25: D-Dimer 0.49 ug/mLFEU (0-0.59) 04/29/25 20:52 Sodium 135 mmol/L (136-145) L 04/29/25 20:52 Potassium 4.3 mmol/L (3.5-5.1) 04/29/25 20:52 Chloride 97 mmol/L (98-107) L 04/29/25 20:52 Carbon Dioxide 24 mmol/L (22-29) 04/29/25 20:52 Anion Gap 18.3 (5-19) 04/29/25 20:52 BUN 24 mg/dL (8-23) H 04/29/25 20:52 Creatinine 0.9 mg/dL (0.5-0.9) 04/29/25 20:52 GFR Calculation 63.2 mL/min (90-130) L 04/29/25 20:52 Glucose 346 mg/dL (65-115) H 04/29/25 20:52 Calculated Osmolality 298 mOsm/kg (285-295) H 04/29/25 20:52 Calcium 9.8 mg/dL (8.5-10.5) 04/29/25 20:52 Total Bilirubin 0.2 mg/dL (0.15-1.2) 04/29/25 20:52 AST 15 U/L (0-32) 04/29/25 20:52 ALT 20 U/L (0-33) 04/29/25 20:52 Alkaline Phosphatase 124 U/L (35-105) H 04/29/25 20:52 Total Protein 7.9 g/dL (6.6-8.7) 04/29/25 20:52 Albumin 4.2 g/dL (3.5-5.2) 04/29/25 20:52 Globulin 3.7 g/dL (1.3-4.6) 04/29/25 20:52 All radiology interpretation(s) finalized by discharge Discharge Plan Discharge Patient Disposition: Home Clinical Impression: Hemoptysis Condition: Stable Prescriptions: New doxycycline hyclate 100 mg capsule 100 mg PO BID 10 Days Qty: 20 0RF methylprednisolone [Medrol (Cameron)] 4 mg tablets,dose pack See Rx Instructions .ROUTE .COMPLEX Qty: 21 0RF Rx Instructions: for 6 days No Action albuterol sulfate [Ventolin HFA] 90 mcg/actuation HFA aerosol inhaler 2 puff inhalation Q6H PRN metoprolol tartrate 25 mg tablet 25 mg PO BID hydrocodone-acetaminophen 5-500 mg tablet PO lisinopril 20 mg tablet PO levothyroxine 88 mcg tablet PO amlodipine 10 mg tablet PO simvastatin 20 mg tablet PO glipizide 5 mg tablet PO aspirin [Adult Low Dose Aspirin] 81 mg tablet,delayed release (DR/EC) 81 mg PO DAILY azithromycin 500 mg tablet 500 mg PO DAILY 5 Days Qty: 5 0RF Discharge Orders: Discharge ED (Routine); Ordered 04/29/25 Ordered By: Aliza Munoz Discharge Diet: Usual diet Discharge Activity: Increase activity as tolerated Patient Instructions: Coughing Up Blood (Hemoptysis) (ED), Patient Portal & Tyler Instructions Activity Restrictions/Additional Instructions: - Return to ED if you have worsening issues with coughing up blood, worsening shortness of breath, fever greater than 100.4 ?F, difficulty breathing -Antibiotics and steroids have been sent to the pharmacy. Obtain early in the morning and start. As we discussed, take your doxycycline with food. Doxycycline has side effects of nausea if you do not take with food. -Doxycycline also has side effects if you are out in the sun and do not use sunblock, you will burn. Do not take initially with milk, utilize milk away from the time you use doxycycline -Doxycycline was chosen over Augmentin since you are allergic to amoxicillin -You are to follow-up with the development scientist on Thursday for procedure on Thursday. As we discussed call early Thursday morning to see when you can have your appointment on Thursday for procedure Thursday. - Use your inhaler with the chamber that respiratory will provide every 3-4 hours, 2 puffs. As noted, return to the ED for worsening shortness of breath. -If your bleeding when you are coughing becomes worse, return to the ED -If your oxygen saturation is staying below 88% and is picking up, return to the ED Print Language: Italian Coding Level of Care Code ED Property Adjuster for Mark Pepe
[2025-04-29 21:02] LABS: Hematocrit 38.7 % (36-47); Hemoglobin 12.50 g/dL (11.27-16.99); Mean Corpuscular HGB Conc 32.3 g/dL (30-55); Mean Corpuscular Hemoglobin 28.3 pg (27-33); Mean Corpuscular Volume 87.6 fl (85-98); Nucleated Red Blood Cells % 0 %; Platelet Count 293 10^3/cmm (157-399); Red Blood Count 4.42 10^6/uL (3.85-5.65); White Blood Count 6.76 10^3/uL (3.29-11.43)
[2025-04-29 21:25] LABS: Alanine Aminotransferase 20 U/L (0-33); Albumin Level 4.2 g/dL (3.5-5.2); Alkaline Phosphatase 124 U/L (35-105); Anion Gap 18.3 (5-19); Aspartate Amino Transferase 15 U/L (0-32); Blood Urea Nitrogen 24 mg/dL (8-23); Calcium 9.8 mg/dL (8.5-10.5); Carbon Dioxide 24 mmol/L (22-29); Chloride 97 mmol/L (98-107); Creatinine Clr Calc Pharmacy 56.7116; Globulin 3.7 g/dL (1.3-4.6); Glucose 346 mg/dL (65-115); Osmolality Calculated 298 mOsm/kg (285-295); Potassium 4.3 mmol/L (3.5-5.1); Sodium 135 mmol/L (136-145); Total Protein 7.9 g/dL (6.6-8.7)
[2025-04-29] MEDS: methylPREDNISolone sod succ 125 mg/2 mL INJ 80 MG IVP (21:43)
== END 2025-04-29 23:52 | disposition home or self-care (01) ==
PROVIDERS: Emergency Medicine; Emergency Provider Physician Assistant
DX: R04.2 Hemoptysis (principal); Z79.82 Long term (current) use of aspirin; Z87.891 Personal history of nicotine dependence
CPT/HCPCS: 36415; 71045; 80053; 85025; 85378; 93005; 96374; 99285; J2919; J3535

== ENCOUNTER 2025-05-02 20:40 | Observation (INO) | payer MEDICAID, SELFPAY ==
[2025-05-02] VITALS (26 sets, daily range): BP systolic 80–123; BP diastolic 31–76; PULSE 75–114; RESP 16–26; TEMP 36.3–36.6; O2SAT 83–97; BMI 31.2
--- NOTE | 2025-05-02 10:08 | ANES.PREANE2 ---
Pre-Anesthetic Assessment Height/Weight: Height 1.52 m Operation Date: 05/02/25 12:10 Proposed Procedures p Bronchoscopy [id number] R91.8(Not Applicable) - Miles Sapp MD s Ebus(Not Applicable) - Miles Sapp MD Familial anesthetic complications: Hallucinations for a week after a lumpectomy many years ago Was Beta Anny taken within 24 hours: Yes Was Clonidine taken within 24 hours: N/A Last intake: > 8 hrs Social No alcohol and No tobacco Former smoker Exam alert, oriented x 3, clear to auscultation bilaterally and regular rate & rhythm Airway Mallampati: Class II Dentition: chipped and other (mulitple missing, poor dentition) Pulmonary Chronic Obstructive Pulmonary Disease CV/HEM Hypertension Metabolic Diabetes Mellitus and Thyroid Disease Anesthetic Plan ASA status: 4 Anesthesia: General Risk of > 500 ml blood loss (7ml/kg in children): No Medications/Allergies Home Medications ?Medication ?Instructions ?Recorded ?Confirmed ?Last Taken ?Type albuterol sulfate 90 mcg/actuation 2 puff inhalation Q6H PRN 12/15/20 05/02/25 05/02/25 History aerosol inhaler (Ventolin HFA) Shortness Of Breath metoprolol tartrate 25 mg tablet 25 mg PO BID 04/15/21 05/02/25 05/02/25 History amlodipine 10 mg tablet 10 mg PO DAILY 02/06/25 05/02/25 05/02/25 History aspirin 81 mg tablet,delayed 81 mg PO DAILY 02/06/25 05/02/25 05/02/25 History release (Adult Low Dose Aspirin) azithromycin 500 mg tablet 500 mg PO DAILY 5 days #5 tabs 02/06/25 05/02/25 Unknown Rx glipizide 5 mg tablet 5 mg PO DAILY 02/06/25 05/02/25 05/01/25 History levothyroxine 88 mcg tablet 88 mcg PO DAILY 02/06/25 05/02/25 05/01/25 History lisinopril 20 mg tablet 20 mg PO DAILY 02/06/25 05/02/25 05/01/25 History simvastatin 20 mg tablet 20 mg PO DAILY 02/06/25 05/02/25 05/01/25 History doxycycline hyclate 100 mg capsule 100 mg PO BID 10 days #20 caps 04/29/25 05/02/25 Unknown Rx methylprednisolone 4 mg tablets in See Rx Instructions PO .COMPLEX 04/29/25 05/02/25 Unknown Rx a dose pack (Medrol (Cameron)) #21 ea Allergies Allergy/AdvReac Type Severity Reaction Status Date / Time amoxicillin Allergy ALGY-Hives Verified 04/24/25 14:47 naproxen Allergy ALGY-Hives Verified 04/29/25 18:47 PFSH Anesthesia Social History Smoking and tobacco/nicotine status: former use of tobacco/nicotine (04/2024)
[2025-05-02 10:58] LABS: INR 0.93 (0.8-1.2); Prothrombin Time 13.20 SECONDS (12.1-14.9)
[2025-05-02 10:59] LABS: Partial Thromboplastin Time 25.2 SECONDS (23.9-36.7)
--- NOTE | 2025-05-02 11:01 | W.PM.OPSUD ---
Surgery/Procedure H&P Update DATE OF PROCEDURE: May 02, 2025 DATE H&P PERFORMED: 05/01/25 CHANGES TO PREVIOUS DOCUMENTATION: Patient was seen and examined this morning. No significant changes in her clinical status since I met her in the clinic except that she went to the ED and she was given antibiotics. Discussed with the patient and her daughter the risks and the benefits of the procedure including diagnosis of the possible lung cancer and therapeutic to open the right sided airway and discussed the risk which include bleeding, collapsed lung, pain, airway injury, stent malposition, stent obstruction, arrhythmia, cardiovascular collapse and . Patient and her both daughter voiced understanding and they would like to proceed forward. PLANNED PROCEDURE: Operation Date: 05/02/25 12:10 Proposed Procedures p Bronchoscopy [id number] 25155 R91.8(Not Applicable) - Miles Sapp MD s Ebus(Not Applicable) - Miles Sapp MD
[2025-05-02] MEDS: insulin regular-human 100 units/1 mL 10 UNIT IVP (11:05)
--- NOTE | 2025-05-02 12:27 | PC.NURSE ---
[facility] USED- sn [id number], BOVIE PAD PLACED ON THE RIGHT FLANK- SKIN INTACT BEFORE APPLYING AND AFTER REMOVING CRYO USED- SN [id number]
--- NOTE | 2025-05-02 12:38 | XR_ITS ---
WS: [id number] XR chest 1V portable [id number] REASON FOR EXAM: POST BRONCH/EBUS FINDINGS: There is a large right hilar mass. Compared to the examination of 04/29/2025 there are additional oblique and horizontal lung opacities at the medial and lateral margin of the mass, presumed atelectasis. No left pneumothorax is identified. There are are central and left lower lobe oblique and horizontal opacities in the right lung not seen on the previous examination which are also likely atelectasis. XR/XR chest 1V portable [id number] IMPRESSION: Areas of atelectasis in both lungs. No pneumothorax.
[2025-05-02] MEDS: lidocaine 2% INJ 20 mL XX (12:40)
--- NOTE | 2025-05-02 12:41 | P.BOP_ITS ---
Interventional Pulmonary Immediate Brief Operative Note: * Date of Procedure:?May 02, 2025 * Preoperative Diagnosis:?Right lung mass with right bronchus intermedius obstruction * Postoperative Diagnosis:?[Same as pre-op] * Procedures Performed: Flexible bronchoscopy with central EBUS for staging and therapeutic bronchoscopy for right bronchus intermedius tumor debulking * Surgeon / It Architecture Consultant:?Miles Sapp MD * Anesthesia: * ?General anesthesia * Findings: * Estimated Blood Loss (EBL):?[Minimal] * Specimens: * ?BAL fluid right lower lobe * ?TBNA from 11L, station 7, 4R and right hilar mass * ?Cryobiopsy from right endobronchial tumor and right hilar mass * Complications:?None * Disposition:?Transferred to PACU in stable condition. Miles Sapp MD, FACP Interventional Pulmonogist
--- NOTE | 2025-05-02 12:41 | W.PM.BPON ---
Interventional Pulmonary Immediate Brief Operative Note: Date of Procedure:?May 02, 2025 Preoperative Diagnosis:?Right lung mass with right bronchus intermedius obstruction Postoperative Diagnosis:?[Same as pre-op] Procedures Performed: Flexible bronchoscopy with central EBUS for staging and therapeutic bronchoscopy for right bronchus intermedius tumor debulking Surgeon / Meat Molder:?Miles Sapp MD Anesthesia: ?General anesthesia Findings: Estimated Blood Loss (EBL):?[Minimal] Specimens: ?BAL fluid right lower lobe ?TBNA from 11L, station 7, 4R and right hilar mass ?Cryobiopsy from right endobronchial tumor and right hilar mass Complications:?None Disposition:?Transferred to PACU in stable condition. Miles Sapp MD, FACP Interventional Pulmonogist
[2025-05-02] MEDS: ondansetron 2 mg/ML SDV 2 mL 4 MG IVP ×2 (13:28→13:52)
--- NOTE | 2025-05-02 14:54 | PC.NURSE ---
Notified Dr. Sapp of pt oxygen continuing to be low, pt oxygen down to 83% on room air attempt. Per Dr. Sapp pt needs to get up and ambulate and use a IS, pt family does not feel this is okay for pt to do at this time, per family at bedside pt could not ambulate at base line prior to surgery, without coughing multiple times and unable to catch her breath. Nurse got pt up to bedside chair in room, pt was given a duoneb treatment, waiting for RT to bring order for bedside IS. Once duoneb completed pt BP 94/49, took again and pt bp 90/53.
--- NOTE | 2025-05-02 14:55 | P.OP_ITS ---
Operative Report Date of procedure: May 02, 2025 Pre-op diagnosis: Right lung mass with airway obstruction Post-op diagnosis: Same Procedure done: Diagnostic/therapeutic bronchoscopy with mediastinal staging EBUS Surgeon: Miles Sapp MD Complications: None Findings: Procedure: Diagnostic and therapeutic bronchoscopy with mediastinal staging Attending: [facility]app [facility] Indication: Right lung mass and bronchus intermedius obstruction Medications: Lidocaine 2% (16 mL) applied to the tracheobronchial tree Anesthesia: General anesthesia per anesthesia team Procedure: Pre-Anesthesia Assessment [place] Protocol: Pre-procedure Verification: Prior to the procedure, the patient's identity was confirmed using full name, date of , and medical record number. Identity verification included a review of all relevant medical records, history, physical examination, medications, allergies, and previous anesthesia tolerance. Risks, benefits, sedation options, and associated risks were reviewed with the patient, and informed consent was obtained after addressing all questions. Time-Out: Immediately before the procedure, a time-out was conducted to confirm patient identification, procedure details, consent, image labeling, and the need for prophylactic antibiotics. This was verified by the physician, nurse, anesthesiologist, and communication studies professor. Outcome: The procedure was completed without difficulty, and the patient tolerated it well. Findings: A thorough airway exam was performed after passage of the bronchoscope. The larynx and vocal cords were anatomically normal. The trachea was anatomically normal. The right sided airway moderate amount of mucoid secretions that required therapeutic suctioning (38919). There was moderate to severe obstruction of the proximal bronchus intermedius with a mixed region (endobronchial tumor and excessive compression. The left sided airway was anatomically normal without endobronchial lesions. The therapeutic bronchoscope was removed and the EBUS scope was inserted (31627). Level 11L station was identified with the EBUS scope at the LLL/L hilum and 4 passes were made using a 22G Olympus TBNA needles. Level 4L station was identified with the EBUS scope at the lateral LMSB and did not meet the criteria for sampling Level 7 station was identified with the EBUS scope at the medial LMSB/RMSB and 6 passes were made using a 22G Olympus TBNA needle. Level 4R station was identified with the EBUS scope at the lateral RMSB and 5 passes were made using a 22G Olympus TBNA needle.? Level 11R was buried by the right hilar mass. Right hilum mass was identified with EBUS scope at the distal bronchus intermedius and 6 passes were made using 22-gauge Olympus TBNA needle. Then using the same TBNA needle track a cryoprobe 1.1 was passed for cryo TBBX biopsy after freezing for 5-10 seconds and we are able to obtain 5 samples ([id number]). EBUS scope was removed and exchanged for therapeutic scope. Endobronchial biopsy (36701) and tumor debulking (13445) using cryoprobe 1.7 mm was performed which resulted in complete recanalization of the bronchus intermedius with open truncus basalis and right middle lobe. Superior segment remained occluded by tumor. Then balloon dilation using 8-9-10 elation balloon and dilated up to 10 mm in both the right lower lobe and the right middle lobe which improved the patency of the airway as I was able to advance the probe to the distal airways. The bronchoscope was advanced until wedged at the desired location for bronchoalveolar lavage.? BAL was performed in the right lower lobe of the lung.? 60 mL of fluid were instilled.? 20 mL were returned. (05343) Finally using circumferential probe APC, the superficial tumor was ablated successfully and hemostasis was achieved [place] Bleeding Scale: Grade 1 Following completion of all diagnostic and therapeutic procedures, hemostasis was verified.? The scope was removed and procedure concluded In summary, the following procedures were performed: 82801 BAL, (Bronchoalveolar Lavage), 75213 EBBX (Endobronchial biopsies), 34475 TBBX, (Transbronchial biopsies, first lobe), 73876 cEBUS 3 or more lesions, (Central curvelinear EBUS 3 or more lesions), ? 94875 Therapeutic aspiration of secretions, 35790 Dilation, Tracheal or Bronchial, (CRE Balloon, Elation balloon, Rigid bronchoscope dilation), 04163 endobronchial tumor debulking/destruction Procedure: Left hilum Right hilum Proximal BI BI post treatment BI post debulking Distal BI with open RML and RLL except sup seg
--- NOTE | 2025-05-02 17:06 | PC.NURSE ---
Providers at bedside with patient in preop, pt blood pressure 86/70, pt 92% on 2L. Pt was able to ambulate on 3L in outpatient area Pt oxygen 90%. 1700 IS at bedside and pt using.
--- NOTE | 2025-05-02 18:10 | PM.HP ---
Providers/Chief Complaint Admitting Physician: Romi Couch Primary Care Provider: Vu Mcgee MD Chief Complaint: [id number] History of Present Illness As per the retrospective notes and the patient Cherrie Chew is a 64-year-old female with a history of mild intermittent asthma (on Ventolin), type 2 diabetes, hypothyroidism, dyslipidemia, hypertension, and a remote history of smoking (approximately 65?70 pack-years; quit April 2024). She was referred to our interventional pulmonary clinic after being found to have a right lung mass. Her symptoms began in December 2024 with worsening shortness of breath and cough. At that time, she was told she had COPD, though no pulmonary function tests or imaging were obtained. The following month, with progressive worsening of dyspnea, she was told she had allergies?again without imaging. She ultimately presented to the emergency department due to ongoing shortness of breath, progressive cough, and, in the past week, mucus with streaks of blood consistent with mild hemoptysis. CTA of the chest revealed a ~7.0 cm right hilar mass extending into the right lower lobe, causing significant narrowing of the bronchus intermedius, with associated mediastinal and hilar lymphadenopathy. The patient was seen by the interventional centerpuncher and Krysta and admitted for bronchoscopy and EBUS evaluation. The patient procedure underwent successfully with flexible bronchoscopy with central EBUS for staging and therapeutic bronchoscopy for right bronchus intermedius tumor debulking and s/p stenting. The patient postprocedure stabilized however she was having oxygen requirement 2 to 4 L through nasal cannula which actually is better relative to when she was seen in the clinic. The patient herself reported better voice and overall clinical condition. The patient was also having soft blood pressure during her postop. Which could be multifactorial related to sedation and n.p.o. time. That she had before the procedure. Hospitalist consulted for postop observation and arrangement of home oxygen before discharge. The patient did not report any hemoptysis, shortness of breath, chest pain, wheezing. Rest of the review of system was unremarkable. Review of Systems General: Reports: 10 or more systems reviewed and unremarkable except in HPI and below Medications/Allergies Home Medications ?Medication ?Instructions ?Recorded ?Confirmed ?Last Taken ?Type albuterol sulfate 90 mcg/actuation 2 puff inhalation Q6H PRN 12/15/20 05/02/25 05/02/25 History aerosol inhaler (Ventolin HFA) Shortness Of Breath metoprolol tartrate 25 mg tablet 25 mg PO BID 04/15/21 05/02/25 05/02/25 History amlodipine 10 mg tablet 10 mg PO DAILY 02/06/25 05/02/25 05/02/25 History aspirin 81 mg tablet,delayed 81 mg PO DAILY 02/06/25 05/02/25 05/02/25 History release (Adult Low Dose Aspirin) azithromycin 500 mg tablet 500 mg PO DAILY 5 days #5 tabs 02/06/25 05/02/25 Unknown Rx glipizide 5 mg tablet 5 mg PO DAILY 02/06/25 05/02/25 05/01/25 History levothyroxine 88 mcg tablet 88 mcg PO DAILY 02/06/25 05/02/25 05/01/25 History lisinopril 20 mg tablet 20 mg PO DAILY 02/06/25 05/02/25 05/01/25 History simvastatin 20 mg tablet 20 mg PO DAILY 02/06/25 05/02/25 05/01/25 History doxycycline hyclate 100 mg capsule 100 mg PO BID 10 days #20 caps 04/29/25 05/02/25 Unknown Rx methylprednisolone 4 mg tablets in See Rx Instructions PO .COMPLEX 04/29/25 05/02/25 Unknown Rx a dose pack (Medrol (Cameron)) #21 ea Allergies Allergy/AdvReac Type Severity Reaction Status Date / Time amoxicillin Allergy ALGY-Hives Verified 04/24/25 14:47 naproxen Allergy ALGY-Hives Verified 04/29/25 18:47 PFSH Acute PFSH: Medical History (Updated 05/02/25 @ 18:20 by Romi Couch MD) Hypertension Social History Smoking and tobacco/nicotine status: former use of tobacco/nicotine (04/2024) Vitals/I&O/Wt Last Vital Signs Temp 97.4 F L 05/02/25 13:16 Pulse 95 05/02/25 17:37 Resp 18 05/02/25 17:37 BP 100/61 05/02/25 17:37 Pulse Ox 93 05/02/25 17:37 O2 Del Method Nasal Cannula 05/02/25 17:37 O2 Flow Rate 2 05/02/25 17:37 05/02/25 05/02/25 05/02/25 06:59 14:59 22:59 Intake Total 50 / 50 1000 / 1050 Output Total Balance 40 / 40 1000 / 1040 Weight last 48 hrs Weight 72.575 kg Physical Exam Narrative: General: Alert and oriented, lying comfortably without any distress on nasal cannula 2 to 3 L saturating above 90% HEENT: Normocephalic, atraumatic, grossly unremarkable exam Cardio: normal rate rhythm, normal S1-S2 without any murmurs, rubs, or gallops and JVD normal Respiratory: normal vascular breathing with mild harsh breathing/wheezing on the right side but the patient is able to speak in full sentences, perform deep inspiratory function with adequate expiration, no crepitus around the neck or supraclavicular fullness appreciated GI: Abdomen soft, nontender, nondistended, normoactive bowel sounds present all 4 quadrants, Neuro: intact cranial nerves motor and sensory and cerebellar/coordination function without any focal neurological deficit Behavior: Appropriate and cooperative Extremities: Adequate palpable pulses, no edema or cyanosis observed Skin: grossly unremarkable exam Data Micro: Microbiology 05/02/25 12:16 Gram Stain - Final Lung Right Lower Lobe A&P Assessment and plan 1. Airway obstruction: 2. Hilar lymphadenopathy: 3. Mediastinal lymphadenopathy: 4. Hypothyroidism: 5. Type 2 diabetes mellitus: 6. Hypertension: 7. Dyslipidemia: 8. Quit smoking within past year: 9. COPD (chronic obstructive pulmonary disease): Plan: - Continue on DuoNebs scheduled followed by hypertonic saline nebulization - Patient is allergic to amoxicillin therefore started on levofloxacin 750 mg and later to discharge on levofloxacin to complete total 5 days of antibiotics empirically for possible postobstructive pneumonia s/p stenting - Arrangement of home oxygen -Follow-up at the time of discharge with interventional centerpuncher/hematology oncology for further lung mass evaluation and management -Follow-up BAL results postdischarge with the interventional centerpuncher - Hold antihypertensive at the moment considering patient blood pressure to improve and later to discharge with home reconciliation - Continue aspirin and statin as home medication - Insulin sliding scale meanwhile to continue and monitor blood glucose - Continue home dose levothyroxine -Monitor vitals especially pulse ox VTE; heparin twice daily Diet: Diabetic diet PDMP PDMP Reviewed: Not Reviewed Attestations Medical Necessity Statement*: Cherrie A Lambert's hospital stay will be less than 2 midnights for management of postop right bronchus intermedius stenting and arrangement of home oxygen after evaluation Time Spent in Patient Care: 16 - 35 minutes (>than 50% of time spent in counselling and/or direct pt care on unit). Other Attestations: Patient condition has been discussed at length with the patient/family, I have independently reviewed the chart labs imaging/diagnostics/EKG. the goals of care and code status with the patient/family/NOK/legal jewelry sales representative, and documented accordingly. The patient/family has been informed about the current condition and further plan of care. Agreed with the plan of care and understood without any language barrier. Every effort was made to ensure accuracy of leases and land supervisor. Any obvious errors or omissions should be clarified with the author of the document. Coding Level of Care Code 30356 Diagnoses Airway obstruction J98.8 Hilar lymphadenopathy R59.0 Mediastinal lymphadenopathy R59.0 Hypothyroidism E03.9 Type 2 diabetes mellitus E11.9 Hypertension I10 Dyslipidemia E78.5 Quit smoking within past year Z87.891 COPD (chronic obstructive pulmonary disease) J44.9
--- NOTE | 2025-05-02 20:40 | ANE.PACU2 ---
Inpatient post-anesthesia follow up: Airway intact: Yes Vital signs: Temperature 98.0 F Pulse Rate 125 Respiratory Rate 20 Blood Pressure 122/83 Pulse Oximetry 95 Oxygen Delivery Me thod Nasal Cannula Oxygen Flow Rate 2 Fraction of Inspir ed Oxygen Hydration adequate: Yes Nausea and vomiting: No Pain level: 1 Mental status: Baseline
[2025-05-02] MEDS: levofloxacin-dextrose 5 % 750 MG/150 ML PREMIX 100 MG IV (22:05)
[2025-05-02] MEDS: heparin 5,000 unit/mL INJ 1 mL 5000 UNIT SUBCUT (22:05)
[2025-05-02] MEDS: sodium chloride 3.5% neb 4 mL Neb INHALATION (22:54)
[2025-05-03] VITALS (10 sets, daily range): BP systolic 105–133; BP diastolic 60–83; PULSE 85–125; RESP 18–21; TEMP 36.7–36.8; O2SAT 88–97
[2025-05-03] MEDS: heparin 5,000 unit/mL INJ 1 mL 5000 UNIT SUBCUT (05:19)
--- NOTE | 2025-05-03 06:00 | XRR_ITS ---
PROCEDURE INFORMATION: Exam: XR Chest Exam date and time: 05/03/2025 6:11 AM Age: 64 years old Clinical indication: Other: Post op bronch yesterday; Prior surgery; Surgery date: Post-operative (0-2 days); Additional info: Post right main bronchus intervention follow up TECHNIQUE: Imaging protocol: Radiologic exam of the chest. Views: 1 view. COMPARISON: CR XR chest 1V portable [id number] 05/02/2025 12:41 PM FINDINGS: Lungs: Stable right hilar mass. Stable atelectasis or infiltrate at the right lung base. Pleural spaces: Unremarkable. No pleural effusion. No pneumothorax. Heart/Mediastinum: The heart and mediastinum normal. Bones/joints: Prior median sternotomy. XR/XR chest 1V portable [id number] IMPRESSION: Stable findings including a large right hilar mass and atelectasis or infiltrate in the right lower lobe.
[2025-05-03] MEDS: sodium chloride 3.5% neb 4 mL Neb INHALATION (08:19)
[2025-05-03] MEDS: ATORVASTATIN 10 MG TABLET PO (08:34)
--- NOTE | 2025-05-03 09:36 | PC.NURSE ---
Provider ordered NS 500ml bolus for now.
--- NOTE | 2025-05-03 09:59 | PC.CHAP ---
Pastoral Care Encounter/Spiritual Assessment Type of Contact [] Declined telehealth director visit [] Patient/Family/Request visit [] Outpatient visit [] Follow-up visit [] Physician referral [] Code/Alert [x] Routine visit [] Staff referral [] Actively dying [] Patient sleeping [] Family support [] [] Out of room [] Palliative care [] [] Receiving care in room [] Pre-surgical visit [] Trauma [] Long length of stay [] ICU visit [] Other: Relational/Emotional Strength [x] Patient feels connected with others/family/visitors/staff [] Distress [] Loneliness/isolation [] Abandonment Spirituality of Patient [x] Person of Sarah [] Attends Mosque of their Sarah [x] Believes in Prayer [] Reads Bible or Catholic materials [] There are Spiritual issues to be addressed Housing Relocation Interventions [x] Prayer [x] Active listening [] Non-anxious presence [x] Spiritual/emotional support [] Crisis/trauma care [] Spiritual counseling [] Bereavement support [] Provided bereavement packet [] Provided Bible/devotional materials [] Provided toy/stuffed animal, coloring book to patient or family member [] Provided Communion [] Anointing/[place] [] Salvation [x] Completed spiritual assessment [] Other: Impact on Illness or Injury [] Angry [] Fearful [] Anxious [] Often cries [] Exhaustion [] Unable to work [] Unable to attend advent [] Unable to walk/stand [] Unable to read [] Unable to drive [] Unable to eat/drink [] Unable to sleep [] Unable to be with family [] Patient intubated [] Other: Summary Time spent with patient 10 min
[2025-05-03] MEDS: alum-mag-hydroxide-sime 30 mL UDC 15 ML PO (10:14)
--- NOTE | 2025-05-03 13:29 | P.DS_ITS ---
Discharge Providers Date of Admission: 05/02/25 20:40 Date of Discharge: May 03, 2025 Attending Provider at Admission: Romi Couch MD Attending Provider at Discharge: Miles Sapp MD Primary Care Provider: Vu Mcgee MD Diagnoses at Discharge Discharge Diagnosis 1. Airway obstruction: 2. Hilar lymphadenopathy: 3. Mediastinal lymphadenopathy: 4. Hypothyroidism: 5. Type 2 diabetes mellitus: 6. Hypertension: 7. Dyslipidemia: 8. Quit smoking within past year: 9. COPD (chronic obstructive pulmonary disease): Reason for Visit Reason for Visit: R918 Brief History: As per the retrospective notes and the patient Cherrie Chew is a 64-year-old female with a history of mild intermittent asthma (on Ventolin), type 2 diabetes, hypothyroidism, dyslipidemia, hypertension, and a remote history of smoking (approximately 65?70 pack-years; quit April 2024). She was referred to our interventional pulmonary clinic after being found to have a right lung mass. Her symptoms began in December 2024 with worsening shortness of breath and cough. At that time, she was told she had COPD, though no pulmonary function tests or imaging were obtained. The following month, with progressive worsening of dyspnea, she was told she had allergies?again without imaging. She ultimately presented to the emergency department due to ongoing shortness of breath, progressive cough, and, in the past week, mucus with streaks of blood consistent with mild hemoptysis. CTA of the chest revealed a ~7.0 cm right hilar mass extending into the right lower lobe, causing significant narrowing of the bronchus intermedius, with associated mediastinal and hilar lymphadenopathy. The patient was seen by the interventional chemistry technician and Krysta and admitted for bronchoscopy and EBUS evaluation. The patient procedure underwent successfully with flexible bronchoscopy with central EBUS for staging and therapeutic bronchoscopy for right bronchus intermedius tumor debulking. Hospital Course Hospital Course The patient postprocedure stabilized however she was having oxygen requirement 2 to 4 L through nasal cannula which actually is better relative to when she was seen in the clinic. The patient herself reported better voice and overall clinical condition. The patient was also having soft blood pressure during her postop. Which could be multifactorial related to sedation and n.p.o. time. That she had before the procedure. Hospitalist consulted for postop observation and arrangement of home oxygen before discharge. The patient did not report any hemoptysis, shortness of breath, chest pain, w heezing. Rest of the review of system was unremarkable. During her hospital stay she was started on antibiotics for possible postobstructive pneumonia. The patient had mild streaks of blood but no hy potension and it is common to have it post bronchoscopy and also considering she has tumor in her right lung. metoprolol was started. Blood pressure and heart rate also became stable. The patient to be discharged home to continue with home oxygen and antibiotics postdischarge with follow-up with interventional chemistry technician scheduled. Stability of the patient was established before discharge. Patient condition has been discussed at length with the patient/family, I have independently reviewed the chart labs imaging/diagnostics/EKG. the goals of care and code status with the patient/family/NOK/legal signs sales representative, and documented accordingly. The patient/family has been informed about the current condition and further plan of care. Agreed with the plan of care and understood without any language barrier. Every effort was made to ensure accuracy of internet sales associate. Any obvious errors or omissions should be clarified with the author of the document. Physical Exam Narrative: General: Alert and oriented, lying comfortably without any distress on nasal cannula 2 to 3 L saturating above 90% HEENT: Normocephalic, atraumatic, grossly unremarkable exam Cardio: normal rate rhythm, normal S1-S2 without any murmurs, rubs, or gallops and JVD normal Respiratory: normal vascular breathing with mild harsh breathing/wheezing on the right side but the patient is able to speak in full sentences, perform deep inspiratory function with adequate expiration, no crepitus around the neck or supraclavicular fullness appreciated GI: Abdomen soft, nontender, nondistended, normoactive bowel sounds present all 4 quadrants, Neuro: intact cranial nerves motor and sensory and cerebellar/coordination f unction without any focal neurological deficit Behavior: Appropriate and cooperative Extremities: Adequate palpable pulses, no edema or cyanosis observed Skin: grossly unremarkable exam Discharge Data Studies Completed and Pending Completed Studies During Hospitalization Category Date Time Status XR chest 1V portable [id number] Routine Exams 05/02/25 12:38 Completed XR chest 1V portable [id number] Routine Exams 05/03/25 06:00 Completed Pending at discharge Category Date Time Status C-arm FL for Bronchoscopy Routine Exams 05/02/25 10:21 Ordered Bronch Washing Culture & GS Stat Lab 05/02/25 12:16 Results Complete Blood Count w/Auto Routine Lab 05/02/25 18:02 Uncollected Comprehensive Metabolic Panel Routine Lab 05/02/25 18:02 Uncollected Fungal Culture not HR/SK/BL Stat Lab 05/02/25 12:16 Received Magnesium Routine Lab 05/02/25 18:02 Uncollected Mycobacteria, Culture w/Fluor Stat Lab 05/02/25 12:16 Received Phosphorus Routine Lab 05/02/25 18:02 Uncollected Cytology [PTH] Stat Pth 05/02/25 11:31 Received Cytology [PTH] Stat Pth 05/02/25 11:34 Received Cytology [PTH] Stat Pth 05/02/25 11:42 Received Cytology [PTH] Stat Pth 05/02/25 11:48 Received Cytology [PTH] Stat Pth 05/02/25 12:17 Received Pathology: Surgical [PTH] Stat Pth 05/02/25 12:34 Received Radiology Impressions Chest X-Ray 05/03/25 06:00 IMPRESSION: Stable findings including a large right hilar mass and atelectasis or infiltrate in the right lower lobe. Laboratory Results PT 13.20 SECONDS (12.1-14.9) 05/02/25 10:33 INR 0.93 (0.8-1.2) 05/02/25 10:33 APTT 25.2 SECONDS (23.9-36.7) 05/02/25 10:33 POC Glucose 496 mg/dL (70-110) H 05/03/25 07:34 Vitals Last Vital Signs Temp 98.2 F 05/03/25 12:00 Pulse 95 05/03/25 12:00 Resp 19 H 05/03/25 12:00 BP 133/72 05/03/25 12:00 Pulse Ox 97 05/03/25 12:00 O2 Del Method Nasal Cannula 05/03/25 08:00 O2 Flow Rate 2 05/03/25 10:49 Discharge Plan Discharge Patient Disposition: Home Condition: Stable Prescriptions: New alum-mag hydroxide-simeth [Mag-Al Plus] 200-200-20 mg/5 mL Suspension 15 ml PO Q6H PRN (Reason: Indigestion) 10 Days Qty: 1000 0RF levofloxacin 750 mg tablet 750 mg PO DAILY 6 Days Qty: 6 0RF famotidine 20 mg tablet 20 mg PO DAILY Qty: 30 0RF Continued albuterol sulfate [Ventolin HFA] 90 mcg/actuation HFA aerosol inhaler 2 puff inhalation Q6H PRN (Reason: Shortness Of Breath) metoprolol tartrate 25 mg tablet 25 mg PO BID lisinopril 20 mg tablet 20 mg PO DAILY levothyroxine 88 mcg tablet 88 mcg PO DAILY amlodipine 10 mg tablet 10 mg PO DAILY simvastatin 20 mg tablet 20 mg PO DAILY glipizide 5 mg tablet 5 mg PO DAILY aspirin [Adult Low Dose Aspirin] 81 mg tablet,delayed release (DR/EC) 81 mg PO DAILY methylprednisolone [Medrol (Cameron)] 4 mg tablets,dose pack See Rx Instructions .ROUTE .COMPLEX Qty: 21 0RF Rx Instructions: for 6 days/ has not started Discontinued azithromycin 500 mg tablet 500 mg PO DAILY 5 Days Qty: 5 0RF Rx Instructions: not started doxycycline hyclate 100 mg capsule 100 mg PO BID 10 Days Qty: 20 0RF Rx Instructions: not started [employer] [place] for DC: Pulmonary Discharge Order = DC NOW: Discharge Order (Routine); Ordered 05/02/25 Ordered By: Miles Sapp Other Ambulatory Orders: DME: Oxygen (Order) Location: None Selected Ordered By: Romi Couch Referrals: Radiation oncology [Other] - 05/08/25 3:15 pm Referral Note: Thoracic Surgery Dr. Hicks at [facility] [Other] - 7-10 days Referral Note: We have notified your physician's clinic of the need for a follow-up appointment to be scheduled. If you have not heard from them within the next 2 business days, please call them directly. Miles Sapp MD [Physician, Interventional Pulmonology] - 05/17/25 2:00 pm Jose Alfredo Bhatti MD [Physician, Family Practice] - 05/23/25 8:00 am Discharge Diet: Advance as tolerated Discharge Activity: Resume usual activity Patient Instructions: COPD, Ipratropium (By breathing), Levofloxacin (By mouth), Sodium Chloride (By breathing), Aluminum, Magnesium, and Simethicone Antacid (By mouth), Hypertension, Opioid Safety, Post Anesthesia Care, Patient Portal & [place] Instructions, Pulmonology Procedures & Bronchoscopy Discharge Instructions Discharge Attestations Time Spent in Discharge Care*: greater than 30 min Specific Discharge Activities: educating patient, educating and/or supporting family/caregiver, discussing with pcp/other providers, discussing with telephonic case manager/social workers/dc planners, documenting/other paperwork and evaluating patient/reviewing data Time Spent in Smoking Cessation: 3 to 10 minutes Status at Discharge: Cognitive status at discharge: cognitively intact , Behavioral status at discharge: cooperative , Functional status at discharge: independent ambulation , Overall status at discharge: patient is back to baseline Quality Metrics Clinical Quality Measures [ No reported AMI, CVA or VTE this stay] Coding Level of Care Code 04828 Diagnoses Airway obstruction J98.8 Hilar lymphadenopathy R59.0 Mediastinal lymphadenopathy R59.0 Hypothyroidism E03.9 Type 2 diabetes mellitus E11.9 Hypertension I10 Hypertension type: unspecified Dyslipidemia E78.5 Quit smoking within past year Z87.891 COPD (chronic obstructive pulmonary disease) J44.9
[2025-05-03 13:32] LABS: Lymphoma Profile (BBPL) See Report
== END 2025-05-03 14:24 | disposition home or self-care (01) ==
LOC: CSU 20:42
PROVIDERS: Admitting Provider Student in an Organized Health Care Education/Training Program; PCP Internal Medicine Medical Oncology; Visit Provider Internal Medicine
PROC: 0BJ08ZZ Inspection of Tracheobronchial Tree, Via Natural or Artificial Opening Endoscopic (ICD-10-PCS; CPT 31622; principal; 2025-05-02 10:00)
PROC: BB4BZZZ Ultrasonography of Pleura (ICD-10-PCS; 2025-05-02 10:00)
DX: C34.01 Malignant neoplasm of right main bronchus (principal); J44.9 Chronic obstructive pulmonary disease, unspecified; I10 Essential (primary) hypertension; E11.9 Type 2 diabetes mellitus without complications; Z79.82 Long term (current) use of aspirin; E07.9 Disorder of thyroid, unspecified; Z87.891 Personal history of nicotine dependence; E78.5 Hyperlipidemia, unspecified
CPT/HCPCS: 31625; 31628; 31641; 31653; 36415; 36416; 71045; 82962; 85610; 85730; 87015; 87070; 87102; 87116; 87205; 87206; 87801; 88112; 88173; 88184; 88185; 88305; 88309; 88342; 94640; 94760; 96372; 97161; 97530; A9270; G0378; J1644; J1815; J1956; J2405; J2704; J3010; J3490; J7030; J7040; J9999

== ENCOUNTER 2025-05-17 06:53 | Day surgery (SDC) | payer MEDICAID, SELFPAY ==
--- NOTE | 2025-05-17 07:01 | SC_ITS ---
WS: [id number] C-arm FL for CVA [id number] REASON FOR EXAM: Port-A-Cath placement FINDINGS: Chest port overlying the right chest with right internal jugular infusion catheter with the tip in the distal SVC. Large central right lung mass. SC/C-arm FL for CVA [id number] IMPRESSION: Chest port placement as above.
--- NOTE | 2025-05-17 07:10 | W.PM.OPSUD ---
Surgery/Procedure H&P Update DATE OF PROCEDURE: May 17, 2025 DATE H&P PERFORMED: 05/12/25 H&P UPDATE INFORMATION: I have reviewed H&P completed within last 30 days, I have examined patient prior to procedure, No changes to prior documentation and Risks and benefits of the procedure reviewed PLANNED PROCEDURE: Operation Date: 05/17/25 08:25 Proposed Procedures p Port a Cath Insertion(Not Applicable) - Jamal Shaikh MD
[2025-05-17 07:25] VITALS: BP 123/70; PULSE 83; RESP 20; TEMP 36.2; O2SAT 97; BMI 30.8
--- NOTE | 2025-05-17 07:33 | P.ANESASSM_ITS ---
Pre-Anesthetic Assessment Height/Weight: Height 5 ft Weight 158 lb Temp Pulse Resp BP Pulse Ox O2 Del Method O2 Flow Rate 97.2 F L 83 20 H 123/70 97 Room Air 2 05/17/25 07:25 05/17/25 07:25 05/17/25 07:25 05/17/25 07:25 05/17/25 07:25 05/17/25 07:25 05/17/25 07:25 Preop Diagnosis: Small cell lung cancer requiring chemotherapy Operation Date: 05/17/25 08:25 Proposed Procedures p Port a Cath Insertion(Not Applicable) - Jamal Shaikh MD Was Beta Anny taken within 24 hours: Yes Was Clonidine taken within 24 hours: N/A Last intake: Intake Last Liquid Date 05/16/25 Last Liquid Time 23:30 Last Solid Date 05/16/25 Last Solid Time 23:30 Social No alcohol and No tobacco Exam alert and oriented x 3 Airway Submandibular: within normal limits Mallampati: Class II Comments: Comments: Missing multiple teeth, poor dentition. Denies any loose Anesthetic Plan ASA status: 4 Anesthesia: MAC Other: No prior issues with anesthesia NPO since yesterday evening History of hypertension on amlodipine, lisinopril and metoprolol. Preop BP 123/70 Hypothyroidism on Synthroid Type 2 diabetes on glipizide COPD, quit smoking 1 year ago Patient has small cell lung cancer in the right lower lobe. Bronchoscopy performed in April showing severe obstruction of right lower bronchus Plan for MAC anesthesia with local via surgeon Medications/Allergies Home Medications ?Medication ?Instructions ?Recorded ?Confirmed ?Last Taken ?Type albuterol sulfate 90 mcg/actuation 2 puff inhalation Q 6H PRN 12/15/20 05/16/25 05/16/25 History aerosol inhaler (Ventolin HFA) Shortness Of Breath metoprolol tartrate 25 mg tablet 25 mg PO BID 04/15/21 05/16/25 05/16/25 History amlodipine 10 mg tablet 10 mg PO DAILY 02/06/2504/1905/16/25 History aspirin 81 mg tablet,delayed 81 mg PO DAILY 02/06/25 0 05/16/25 05/16/25 History release (Adult Low Dose Aspirin) glipizide 5 mg tablet 5 mg PO DAILY 02/06/2505/1605/16/25 History levothyroxine 88 mcg tablet 88 mcg PO DAILY 02/06/25 0 05/16/25 05/15/25 History lisinopril 20 mg tablet 20 mg PO DAILY 02/06/2504/1905/15/25 History simvastatin 20 mg tablet 20 mg PO DAILY 02/06/2504/1905/16/25 History ondansetron HCl 4 mg tablet 4 mg PO Q6H PRN nausea and 05/15/25 Unknown Rx vomiting #30 tabs prochlorperazine maleate 10 mg 10 mg PO Q4H PRN mild n ausea #30 05/15/25 05/16/25 Unknown Rx tablet (Compazine) tabs Allergies Allergy/AdvReac Type Severity Reaction Status Date / Time amoxicillin Allergy ALGY-Hives Verified 05/12/25 08:27 naproxen Allergy ALGY-Hives Verified 05/12/25 08:27 [facility] Anesthesia Medical History Hypertension Family History (Updated 05/12/25 @ 08:35 by DELFINA Travis) Grandmother Small cell lung cancer Grandfather Lung cancer Social History Smoking and tobacco/nicotine status: former use of tobacco/nicotine (04/2024) Data Anesthesia Cardiac Studies: Echocardiogram 04/26/25
[2025-05-17] MEDS: insulin regular-human 100 units/1 mL 5 UNIT IVP (08:05)
[2025-05-17] MEDS: BUPivacaine 0.25% INJ 10 mL INJECTION (08:35)
[2025-05-17] MEDS: heparin, porcine 1,000 unit/mL INJ 10 mL 10000 UNIT INTRACATH (08:35)
[2025-05-17] MEDS: lidocaine-epi 1% 20 mL INJ INJECTION (08:35)
--- NOTE | 2025-05-17 08:48 | P.OP_ITS ---
Operative Report Date of procedure: May 17, 2025 Pre-op diagnosis: Lung cancer Post-op diagnosis: same Post-op findings: Tip of catheter at atriocaval junction confirmed with intraoperative fluoroscopy Procedure done: Port-A-Cath placement Implants: Port-A-Cath Specimens removed/disposition: N/A Pathology: none sent Surgeon: Jamal Shaikh MD Supervisor Stitching Department: N/A Anesthesia: MAC Estimated blood loss (mL): 10 Complications: N/A Findings: Tip of catheter at atriocaval junction confirmed with intraoperative fluoroscopy Condition: stable Disposition: same day Brief History: 64-year-old female with lung cancer who presents for port placement for chemotherapy administration. Discussed risk and benefits and patient agreed to proceed with Port-A-Cath placement. Procedure: Patient was brought into the operating room and a timeout was carried out. P rocedure was done under MAC. Patient was placed supine with the arms tucked and in Trendelenburg. Patient was prepped and draped in the usual sterile fashion. Using ultrasound guidance the right internal jugular vein was accessed. A guidewire was then placed down to the atriocaval junction using fluoroscopy. The finder needle was removed and the guidewire was secured. I then turned my attention to creating a pocket over the right chest. Make sure to locally infiltrated using plain lidocaine and bupivacaine at the site of the pocket and throughout the tunnel site. I confirmed adequate hemostasis at the pocket. I then proceeded to place the port that was already preassembled and flushed with heparinized saline and the chest pocket. I tunneled the catheter from the chest to the neck at the site where I accessed the internal jugular vein. I measured and adjusted the length of the catheter so it would reach the atrial caval junction. At this point, I used a dilator to dilate the tract into the internal jugular vein using fluoroscopy. I removed the guidewire and proceeded to thread the central venous catheter through the introducer. In the process, I removed the sheath as a completely pushed the catheter into the internal jugular vein. I then confirmed adequate placement of the catheter by performing intraoperative interpretation of fluoroscopy. The tip of the catheter was confirmed to be placed in the atriocaval junction. There were no kinks noted throughout the trajectory of the catheter. I then proceeded to test the port and was satisfied with its functionality. I proceeded to flushed the catheter without any issues. I then hep-locked the port. Skin was closed using deep dermal 3-0 Vicryl, subcuticular 4-0 Monocryl, and Dermabond. Patient was then transferred to PACU without any complications.
[2025-05-17 08:56] VITALS: BP 109/59; PULSE 77; RESP 16; TEMP 36.6; O2SAT 95
[2025-05-17 09:01] VITALS: BP 107/58; PULSE 76; RESP 16; O2SAT 96
[2025-05-17 09:06] VITALS: BP 115/48; PULSE 74; RESP 16; O2SAT 93
[2025-05-17 09:11] VITALS: BP 116/60; PULSE 86; RESP 16; TEMP 36.4; O2SAT 96
[2025-05-17 09:18] VITALS: BP 114/57; PULSE 66; RESP 17; TEMP 36.4; O2SAT 98
--- NOTE | 2025-05-17 09:49 | ANE.PACU2 ---
Inpatient post-anesthesia follow up: Airway intact: Yes Vital signs: Temperature 97.5 F Pulse Rate 66 Respiratory Rate 17 Blood Pressure 114/57 Pulse Oximetry 98 Oxygen Delivery Me thod Nasal Cannula Oxygen Flow Rate 3 Fraction of Inspir ed Oxygen Hydration adequate: Yes Nausea and vomiting: No Pain level: 1 Mental status: Baseline
== END 2025-05-17 09:45 | disposition home or self-care (01) ==
PROVIDERS: PCP Family Medicine; Visit Provider Student in an Organized Health Care Education/Training Program
PROC: (CPT 36561; principal; 2025-05-17 08:25)
DX: C34.90 Malignant neoplasm of unspecified part of unspecified bronchus or lung (principal); I10 Essential (primary) hypertension; E03.9 Hypothyroidism, unspecified; E11.9 Type 2 diabetes mellitus without complications; J44.9 Chronic obstructive pulmonary disease, unspecified; Z79.82 Long term (current) use of aspirin; Z87.891 Personal history of nicotine dependence
CPT/HCPCS: 36561; 36416; 76000; 77001; 82962; C1750; C1788; J1100; J1644; J1815; J2250; J2371; J2405; J2704; J3010; J3373; J3490; J7030; J7050; J9999

== ENCOUNTER → 2025-05-29 09:53 | Outpatient (BNVA) | payer MEDICAID, SELFPAY | PROVIDERS: PCP Family Medicine | DX: R39.89 Other symptoms and signs involving the genitourinary system (principal) | CPT/HCPCS: 81000 ==

== ENCOUNTER 2025-06-05 19:23 | Emergency (ER) | payer MEDICAID, SELFPAY ==
[2025-06-05 19:44] VITALS: BP 144/70; PULSE 99; RESP 22; TEMP 36.9; O2SAT 94
[2025-06-05 20:38] LABS: Glucose Urine UA 3+ (Normal); Nitrate Urine Negative (Negative)
[2025-06-05 20:41] VITALS: PULSE 92; O2SAT 93
[2025-06-05 20:45] LABS: Hematocrit 30.4 % (36-47); Hemoglobin 10.00 g/dL (11.27-16.99); Mean Corpuscular HGB Conc 32.9 g/dL (30-55); Mean Corpuscular Hemoglobin 28.1 pg (27-33); Mean Corpuscular Volume 85.4 fl (85-98); Platelet Count 77 10^3/cmm (157-399); Red Blood Count 3.56 10^6/uL (3.85-5.65); White Blood Count 15.93 10^3/uL (3.29-11.43)
--- NOTE | 2025-06-05 20:56 | W.ED.FEMALGU ---
HPI - Female Genitourinary General: Chief complaint: Urogenital-Female Stated complaint: Cancer Pt\Pain Time Seen by Provider: 06/05/25 20:39 Source: patient and family Mode of arrival: ambulatory Limitations: no limitations History of Present Illness: Patient is a 64-year-old female who presents to the ED today with complaint of external genitalia pain as well as severe dysuria. Patient states she began having symptoms approximately 2 weeks ago. She states she was placed on ciprofloxacin for treatment of a UTI and does feel like her symptoms vastly improved while on medication. She states she has finished these now and symptoms have returned. She does feel like she notices a small amount of pink when she wipes. Patient denies history of postmenopausal vaginal bleeding. She has not had a well woman's exam in approximately 13 years. She is a known cancer patient follows with our [facility] oncology department. Daughter states she just underwent PET scan a few days ago. She is not complaining of flank pain. MD elicited complaint: dysuria Onset (ago): day(s) Location of symptoms: external genitalia and perineum Severity: severe Quality of pain: sharp Consistency: constant Vaginal discharge: none Vaginal bleeding: none Urinary symptoms: Dysuria Exacerbating factors: urination Relieving factors: none Associated symptoms: Deny abdominal pain or nausea Treatment prior to arrival: none Sexual activity: No Patient : No Related Data Home Medications ?Medication ?Instructions ?Recorded ?Confirmed metoprolol tartrate 25 mg tablet 25 mg PO BID 04/15/21 05/29/25 amlodipine 10 mg tablet 10 mg PO DAILY 02/06/25 05/29/25 Held on 05/23/25. Instructions: Home Medication placed on hold at Doctor's office aspirin 81 mg tablet,delayed 81 mg PO DAILY 02/06/25 05/29/25 release (Adult Low Dose Aspirin) Held on 05/17/25. Instructions: Resume on 05/18/25. lisinopril 20 mg tablet 20 mg PO DAILY 02/06/25 05/29/25 glipizide 5 mg tablet 10 mg PO BID 05/23/25 05/29/25 Previous Rx's ?Medication ?Instructions ?Recorded ondansetron HCl 4 mg tablet 4 mg PO Q6H PRN nausea and 05/15/25 vomiting #30 tabs prochlorperazine maleate 10 mg 10 mg PO Q4H PRN mild nausea #30 05/15/25 tablet (Compazine) tabs albuterol sulfate 90 mcg/actuation 2 puff inhalation Q6H PRN 05/17/25 aerosol inhaler (Ventolin HFA) Shortness Of Breath #8.5 grams tiotropium bromide 2.5 2 puff inhalation DAILY #4 grams 05/17/25 mcg/actuation mist for inhalation (Spiriva Respimat) alcohol swabs 1 pad topical DIRECTED #200 ea 05/18/25 blood sugar diagnostic (Blood #200 ea 05/18/25 Glucose Test strips) blood-glucose meter #1 ea 05/18/25 insulin lispro 100 unit/mL 1 unit (0.01 mL) SUBCUT .COMPLEX 05/18/25 subcutaneous pen (Humalog KwikPen Diabetes #15 mL (U-100) Insulin) lancets #200 ea 05/18/25 Dexcom G7 Transmitter device #1 ea 05/23/25 blood-glucose sensor (Dexcom G7 #1 ea 05/23/25 Sensor device) blood-glucose,wrecking supervisor,cont #1 ea 05/23/25 (Dexcom G7 Die Finisher Forging) dapagliflozin propanediol 10 mg 10 mg PO QAM #30 tabs 05/23/25 tablet (Farxiga) dexamethasone 2 mg tablet 2 mg PO BID brain mets #30 tabs 05/23/25 lidocaine-prilocaine 2.5 %-2.5 % 1 applic topical .COMPLEX #30 grams 05/23/25 topical cream levothyroxine 100 mcg tablet 100 mcg PO DAILY #60 tabs 05/26/25 simvastatin 40 mg tablet 40 mg PO DAILY #90 tabs 05/26/25 ciprofloxacin HCl 750 mg tablet 750 mg PO BID #14 tabs 05/29/25 sulfamethoxazole 800 1 tab PO BID 7 days #14 tabs 06/05/25 mg-trimethoprim 160 mg tablet (Bactrim DS) Allergies Allergy/AdvReac Type Severity Reaction Status Date / Time amoxicillin Allergy ALGY-Hives Verified 05/29/25 09:35 naproxen Allergy ALGY-Hives Verified 05/29/25 09:35 Review of Systems Const: Denies: fever(s), chills, body aches, fatigue or malaise Card: Denies: chest pain Resp: Denies: dyspnea GI: Denies: abdominal pain, nausea, vomiting, diarrhea or change in bowel habits : Reports: difficulty voiding, dysuria, urinary urgency and urinary hesitancy; Denies: flank pain or pelvic pain Musc: Denies: back pain Skin/Breast: Denies: rash Neuro: Denies: dizziness PFSH ED PFSH: Medical History Acute UTI (urinary tract infection) Port-A-Cath in place Hypertension Surgical History Hx of section x2 Hx of tubal ligation Hx laparoscopic cholecystectomy History of open heart surgery age 5 History of lumpectomy of left breast Hx of tonsillectomy Family History Grandmother Small cell lung cancer Grandfather Lung cancer Mother Small cell lung cancer Social History Smoking and tobacco/nicotine status: former use of tobacco/nicotine Physical Exam Const: COMMON NORMALS: no acute distress, average body habitus, patient oriented x3, no limitations, healthy appearing, alert and well nourished GENERAL APPEARANCE: cooperative ORIENTATION/CONSCIOUSNESS: Yes awake, Yes oriented to person, Yes oriented to place and Yes oriented to time Resp: COMMON NORMALS: normal respiratory effort and clear to auscultation bilaterally AUSCULTATION: clear to auscultation bilaterally Cardio: COMMON NORMALS: regular rate and regular rhythm RATE: regular rate RHYTHM: regular rhythm GI: COMMON NORMALS: Normal to inspection, nondistended, normoactive bowel sounds present, Soft to palpation, non-tender, No hepatosplenomegaly present and no masses PALPATION: Yes Soft to palpation and Yes No hepatosplenomegaly present : COMMON NORMALS: Yes no CVA tenderness BLADDER/KIDNEY EXAM: Yes no CVA tenderness OTHER: external genital exam performed showing inflamed/atrophy to labia/vulva Back/Pelvis: COMMON NORMALS: no CVA tenderness Extremity: GENERAL: Yes normal exam except as noted Neuro: COMMON NORMALS: patient oriented x3 SENSORIUM/ORIENTATION: Yes alert, Yes oriented to person, Yes oriented to place and Yes oriented to time Course Vital Signs: Vital signs: Vital Signs Temperature 98.5 F 06/05/25 19:44 Pulse Rate 74 06/05/25 23:00 Respiratory Rate 22 H 06/05/25 19:44 Blood Pressure 68/50 06/05/25 23:00 Pulse Oximetry 91 06/05/25 23:00 Oxygen Delivery Me thod Nasal Cannula 06/05/25 22:00 Oxygen Flow Rate 2 06/05/25 19:44 MDM - Female Medical Decision Making Patient's vital signs are stable. Blood work showing mild white count of 15.9. She has chronic mild anemia. Thrombocytopenia most likely related to chemotherapy use. Her chemistry is overall nonactionable. She has chronic uncontrolled diabetes/hyperglycemia. UA suspicious for hemorrhagic cystitis with the presence of 3+ blood, 80-100 RBCs, 40-55 WBCs. Will culture and placed on antibiotics. We did discuss the possibility of the blood seen in her UA being contaminant from postmenopausal vaginal bleeding. Will have her follow-up with women's health for a well woman's exam. She did have a recent PET scan which did not appear to show any metastasis to pelvic organs. Of note, after administering morphine here in the ED patient's blood pressure dropped to 60s/40s. She was not overly symptomatic. Patient continued to be monitored closely and blood pressures improved on their own to 110s/60s at time of discharge which patient stated was her normal. Medical Records I reviewed the patient's medical records. Lab Data I reviewed the patient's lab results. 06/05/25 20:35 06/05/25 20:35 Laboratory Results WBC 15.93 10^3/uL (3.29-11.43) H 06/05/25:35 RBC 3.56 10^6/uL (3.85-5.65) L 06/05/25 20:35 Hgb 10.00 g/dL (11.27-16.99) L 06/05/25 20:35 Hct 30.4 % (36-47) L 06/05/25 20:35 MCV 85.4 fl (85-98) 06/05/25 20:35 MCH 28.1 pg (27-33) 06/05/25 20: MCHC 32.9 g/dL (30-55) 06/05/25 20:35 RDW 12.4 % (12.1-15.1) 06/05/25 20:35 Plt Count 77 10^3/cmm (157-399) L 06/05/25 20:35 MPV 10.6 fL (7.4-10.4) H 06/05/25 20:35 Lymph % (Auto) Not Reportable 06/05/25 20:35 [place] % (Auto) Not Reportable 06/05/25 20:35 Lymph # (Auto) Not Reportable 06/05/25 20:35 [place] # (Auto) Not Reportable 06/05/25 20:35 Total Counted 100 (0-100) 06/05/25 20:35 Atypical Lymphs % Not Reportable 06/05/25 20:35 Segmented Neutrophils 71 % 06/05/25 20:35 Band Neutrophils Not Reportable 06/05/25 20:35 Lymphocytes (Manual) 17 % 06/05/25 20:35 Monocytes (Manual) 5.0 % 06/05/25 20:35 Absolute Monocytes 0.8 10^3/cmm (0.1-0.6) H 06/05/25 20:35 Eosinophils (Manual) 0 % 06/05/25 20:35 Absolute Eosinophils 0.0 10^3/cmm (0.0-0.7) 06/05/25 20:35 Basophils (Manual) 0.0 % 06/05/25 20:35 Absolute Basophils 0.0 10^3/cmm (0.0-0.2) 06/05/25 20:35 Metamyelocytes 3.0 % 06/05/25 20:35 Myelocytes 4.0 % 06/05/25 20:35 Platelet Estimate Decreased (Normal) L 06/05/25 20:35 Sodium 136 mmol/L (136-145) 06/05/25 20:35 Potassium 4.3 mmol/L (3.5-5.1) 06/05/25 20:35 Chloride 95 mmol/L (98-107) L 06/05/25 20:35 Carbon Dioxide 25 mmol/L (22-29) 06/05/25 20:35 Anion Gap 20.3 (5-19) H 06/05/25 20:35 BUN 25 mg/dL (8-23) H 06/05/25 20:35 Creatinine 0.9 mg/dL (0.5-0.9) 06/05/25 20:35 GFR Calculation 63.2 mL/min (90-130) L 06/05/25: Glucose 464 mg/dL (65-115) H 06/05/25: Calculated Osmolality 307 mOsm/kg (285-295) H 06/05/25: Calcium 9.5 mg/dL (8.5-10.5) 06/05/25 Total Bilirubin 0.2 mg/dL (0.15-1.2) 06/05/25: AST 12 U/L (0-32) 06/05/25: ALT 19 U/L (0-33) 06/05/25: Alkaline Phosphatase 183 U/L (35-105) H 06/05/25 Total Protein 6.7 g/dL (6.6-8.7) 06/05/25 Albumin 4.1 g/dL (3.5-5.2) 06/05/25: Globulin 2.6 g/dL (1.3-4.6) 06/05/25: Urine Color Yellow (Yellow) 06/05/25: Urine Appearance Turbid (CLEAR) A 06/05/25: Urine pH 6.5 (5-7) 06/05/25 Ur Specific [place] 1.035 (1.005-1.030) H 06/05/25: Urine Protein 4+ (Negative) A 06/05/25: Urine Glucose (UA) 3+ (Normal) H 06/05/25: Urine Ketones Negative (Negative) 06/05/25: Urine Blood 3+ (Negative) A 06/05/25: Urine Nitrate Negative (Negative) 06/05/25: Urine Bilirubin Negative (Negative) 06/05/25: Urine Urobilinogen 0.2 mg/dL (Negative) 06/05/25: Ur Leukocyte Esterase Negative (Negative) 06/05/25: Urine RBC 80-100 /hpf (0-2) H 06/05/25 20:25 Urine WBC 40-55 /hpf (0-5) H 06/05/25 20:25 Ur Squamous Epith Cells 0-4 /hpf (0-5) H 06/05/25 20:25 Amorphous Sediment Not Reportable 06/05/25 20:25 Urine Bacteria Trace /hpf (NONE) 06/05/25 20:25 No radiology studies performed this visit Discharge Plan Discharge Patient Disposition: Home Clinical Impression: Acute hemorrhagic cystitis Condition: Stable Prescriptions: New sulfamethoxazole-trimethoprim [Bactrim DS] 800-160 mg tablet 1 tab PO BID 7 Days Qty: 14 0RF No Action metoprolol tartrate 25 mg tablet 25 mg PO BID (DME) Dexcom G7 Sensor Device See Rx Instructions .MEDSUPPLY Qty: 1 2RF Rx Instructions: As directed (DME) Dexcom G7 Die Finisher Forging Misc See Rx Instructions miscellaneous .MEDSUPPLY Qty: 1 0RF Rx Instructions: As directed dapagliflozin propanediol [Farxiga] 10 mg tablet 10 mg PO QAM Qty: 30 2RF (DME) Dexcom G7 Transmitter device See Rx Instructions .ROUTE .MEDSUPPLY Qty: 1 2RF Rx Instructions: As directed insulin lispro [Humalog KwikPen Insulin] 100 unit/mL insulin pen 1 unit SUBCUT .COMPLEX Qty: 15 0RF Rx Instructions: Use moderate sliding scale with dosing four times daily (DME) lancets Misc See Rx Instructions .MEDSUPPLY Qty: 200 0RF Rx Instructions: Use as directed to prick skin for blood sugar checks (DME) blood-glucose meter Misc See Rx Instructions .MEDSUPPLY Qty: 1 0RF Rx Instructions: Use as directed for checking blood sugar (DME) Blood Glucose Test Strip See Rx Instructions .MEDSUPPLY Qty: 200 0RF Rx Instructions: Use as directed with glucometer to check blood sugar alcohol swabs Pads, Medicated 1 pad topical DIRECTED Qty: 200 0RF Rx Instructions: Use as directed to clean skin prior to finger stick or medication injection lisinopril 20 mg tablet 20 mg PO DAILY amlodipine 10 mg tablet 10 mg PO DAILY aspirin [Adult Low Dose Aspirin] 81 mg tablet,delayed release (DR/EC) 81 mg PO DAILY glipizide 5 mg tablet 10 mg PO BID albuterol sulfate [Ventolin HFA] 90 mcg/actuation HFA aerosol inhaler 2 puff inhalation Q6H PRN (Reason: Shortness Of Breath) Qty: 8.5 3RF Spiriva Respimat 2.5 mcg/actuation mist 2 puff inhalation DAILY Qty: 4 3RF ciprofloxacin HCl 750 mg tablet 750 mg PO BID Qty: 14 0RF ondansetron HCl 4 mg tablet 4 mg PO Q6H PRN (Reason: nausea and vomiting) Qty: 30 3RF prochlorperazine maleate [Compazine] 10 mg tablet 10 mg PO Q4H PRN (Reason: mild nausea) Qty: 30 3RF dexamethasone 2 mg tablet 2 mg PO BID Qty: 30 0RF lidocaine-prilocaine 2.5-2.5 % cream 1 applic topical .COMPLEX Qty: 30 2RF Rx Instructions: Apply quarter-size amount to port site 30 minutes prior to access; cover with cling wrap simvastatin 40 mg tablet 40 mg PO DAILY Qty: 90 1RF levothyroxine 100 mcg tablet 100 mcg PO DAILY Qty: 60 1RF Discharge Orders: Discharge ED (Routine); Ordered 06/05/25 Ordered By: Gwendolyn Mckeon Referrals: Jose Alfredo Bhatti MD [Primary Care Provider, Family Practice] Patient Instructions: Hemorrhagic Cystitis, Patient Portal & [place] Instructions Activity Restrictions/Additional Instructions: As we discussed, please follow-up with your primary care provider in case symptoms are not improving. Case management referrals been placed for women's health for well woman exam and for further evaluation of her perineal/vulva discomfort. Will culture your urine today for definitive confirmation. We will reach out to you if any changes need to be made to your antibiotics. 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
[2025-06-05 21:00] VITALS: PULSE 101; O2SAT 91
[2025-06-05 21:00] LABS: Alanine Aminotransferase 19 U/L (0-33); Albumin Level 4.1 g/dL (3.5-5.2); Alkaline Phosphatase 183 U/L (35-105); Anion Gap 20.3 (5-19); Aspartate Amino Transferase 12 U/L (0-32); Blood Urea Nitrogen 25 mg/dL (8-23); Calcium 9.5 mg/dL (8.5-10.5); Carbon Dioxide 25 mmol/L (22-29); Chloride 95 mmol/L (98-107); Globulin 2.6 g/dL (1.3-4.6); Glucose 464 mg/dL (65-115); Osmolality Calculated 307 mOsm/kg (285-295); Potassium 4.3 mmol/L (3.5-5.1); Sodium 136 mmol/L (136-145); Total Protein 6.7 g/dL (6.6-8.7)
[2025-06-05 21:03] LABS: Add Urine Microscopic? YES; Specific Gravity, Urine 1.035 (1.005-1.030); UA Manual Slide Review YES; UA Slide Review UA Slide Review Perf
[2025-06-05 21:20] LABS: Slide Review Slide Review Perform
[2025-06-05 21:21] LABS: Absolute Segmented Neutrophil 11.3 10/cmm (1.6-7.1); Total Cells Counted 100 (0-100)
[2025-06-05 21:30] VITALS: PULSE 97; O2SAT 94
[2025-06-05 22:00] VITALS: PULSE 106; O2SAT 94
[2025-06-05] MEDS: ondansetron 2 mg/ML SDV 2 mL 4 MG IVP (22:31)
[2025-06-05] MEDS: cefTRIAXone 1,000 MG in water for injection-sterile 2.1 ML 1 MG IM (22:31)
[2025-06-05] MEDS: morphine 4 mg/mL SDV 1 mL IVP (22:31)
[2025-06-05 23:00] VITALS: BP 68/50; PULSE 74; O2SAT 91
[2025-06-06] VITALS: BP 100/54; PULSE 77; O2SAT 92
--- NOTE | 2025-06-08 07:30 | DCPLANNER ---
messaged [facility] for er f/u
== END 2025-06-06 00:02 | disposition home or self-care (01) ==
PROVIDERS: Emergency Medicine; Emergency Provider Physician Assistant; PCP Family Medicine
DX: N30.01 Acute cystitis with hematuria (principal); Z79.82 Long term (current) use of aspirin; Z79.4 Long term (current) use of insulin; Z87.891 Personal history of nicotine dependence; I10 Essential (primary) hypertension
CPT/HCPCS: 80053; 81001; 85007; 85025; 87086; 96372; 96374; 96375; 99284; J0696; J2270; J2405

== ENCOUNTER 2025-06-12 10:00 | Oncology outpatient (recurring) (ONCR) | payer MEDICAID, SELFPAY ==
[2025-05-25 12:41] LABS: Hematocrit 34.3 % (36-47); Hemoglobin 10.70 g/dL (11.27-16.99); Mean Corpuscular HGB Conc 31.2 g/dL (30-55); Mean Corpuscular Hemoglobin 28.1 pg (27-33); Mean Corpuscular Volume 90.0 fl (85-98); Nucleated Red Blood Cells % 0 %; Platelet Count 236 10^3/cmm (157-399); Red Blood Count 3.81 10^6/uL (3.85-5.65); White Blood Count 4.89 10^3/uL (3.29-11.43)
[2025-05-25 12:53] LABS: Alanine Aminotransferase 19 U/L (0-33); Albumin Level 3.9 g/dL (3.5-5.2); Alkaline Phosphatase 110 U/L (35-105); Anion Gap 14.1 (5-19); Aspartate Amino Transferase 23 U/L (0-32); Blood Urea Nitrogen 22 mg/dL (8-23); Calcium 8.9 mg/dL (8.5-10.5); Carbon Dioxide 29 mmol/L (22-29); Chloride 103 mmol/L (98-107); Creatinine Clr Calc Pharmacy 63.8006; Globulin 2.9 g/dL (1.3-4.6); Glucose 145 mg/dL (65-115); Osmolality Calculated 298 mOsm/kg (285-295); Potassium 5.1 mmol/L (3.5-5.1); Sodium 141 mmol/L (136-145); Total Protein 6.8 g/dL (6.6-8.7)
[2025-05-25 13:16] LABS: Slide Review Slide Review Perform
--- NOTE | 2025-05-26 15:04 | PETR_ITS ---
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 Then, PET images were obtained. Attenuation corrected images were constructed using the CT scan. Fused images of PET and CT were reviewed. The standardized uptake values (SUV) reported below are maximum values within a region of interest, expressed in gm/ml. Exam includes orbital meatal line to mid-thigh. SUV normalization method: BodyWeight Radiopharmaceutical: 11.6 mCi F-18 FDG (Fluorodeoxyglucose), IV. Time of imaging post radiopharmaceutical administration: 51 minutes Injection site: right ac COMPARISON: CT angio chest PE protcl [id number] 04/20/2025 8:52 PM FINDINGS: Tubes, catheters and devices: Right chest port terminates near the superior cavoatrial junction. Brain: Visualized brain has normal physiologic uptake. Pharynx: No abnormal uptake. Larynx: No abnormal uptake. Lungs, pleura and trachea: Spiculated perihilar right lower lobe mass measures 3.9 cm on axial image 90 and shows SUV max 9.9, previously 5.5 cm. Adjacent right lower lobe platelike atelectasis. Heart: Normal physiologic uptake. Coronary arteries: Mild coronary artery calcification. Mediastinal space: No abnormal uptake. Liver: No abnormal uptake. Gallbladder and biliary ducts: No abnormal uptake. Prior cholecystectomy. Pancreas: No abnormal uptake. Spleen: No abnormal uptake. Adrenal glands: 1.5 cm right adrenal nodule on axial image 129 shows SUV max 2.7, previously 2.9 cm. Low-level left adrenal uptake without underlying nodule shows SUV max 3.2. Kidneys and ureters: Normal physiologic uptake. Stomach and bowel: No abnormal uptake. Colonic diverticulosis without findings of diverticulitis. Vasculature: No abnormal uptake. Moderate systemic atherosclerotic calcification without aortic aneurysm. Lymph nodes: FDG-avid mediastinal and right hilar lymphadenopathy with SUV max 7.4 just lateral to the right bronchus intermedius on axial image 86. Lymphadenopathy is decreased with subcarinal node measuring 8 mm in the short axis, previously 12 mm. Right hilar lymphadenopathy shows resolved anterior margin convexity, axial image 81 on today's exam compared to axial image 415 of series [address] Skeleton: Focal low-level FDG uptake at the proximal right humerus without underlying CT abnormality shows SUV max 3.0 on axial image 66. Focal FDG uptake without underlying CT abnormality at the medial left iliac bone adjacent to the sacroiliac joint shows SUV max 3.0 on axial image 198. Asymmetric uptake at the [id number]-left proximal femora without underlying CT abnormality shows SUV max 5.0 on the right on axial image 242 and SUV max 2.7 on the left on axial image 244. Degenerative change along the spine, acromioclavicular and sacroiliac joints. Soft tissues: Bilateral multifocal muscular low-level FDG uptake without underlying CT abnormality is likely physiologic and/or strain. Multiple bilateral non FDG avid breast masses, index heterogeneous right outer breast masslike area measuring 2.7 cm on axial image 95 with SUV max 1.5 and circumscribed oval 3.2 x 1.5 cm left inner breast mass on axial image 107 of series 202 with SUV max 1.4. METRICS: Mediastinal blood pool: SUV mean 2.1 Liver uptake: SUV mean 2.2 PET/PET skull to thigh INIT [id number] IMPRESSION: 1. Spiculated perihilar right lower lobe mass compatible with malignancy, decreased from April [address] 2. Decreased size metastatic mediastinal and right hilar lymphadenopathy. 3. Decreased size mildly metabolic right adrenal nodule suspicious for metastasis. 4. Low-level left adrenal FDG uptake without discrete underlying nodule could also represent metastasis versus hyperplasia. 5. Few scattered foci of osseous FDG uptake raise concern for metastatic disease involving the proximal right humerus, medial left iliac bone, and [id number]-left proximal femora. Greatest degree of uptake at proximal right femur with SUV max 5.0. 6. Multiple bilateral non FDG avid breast masses. Recommend mammographic correlation.
--- NOTE | 2025-06-06 13:54 | ONCRAD TMN_ITS ---
Radiation Oncology Weekly Treatment Management Patient: Cherrie Chew MR#: [id number] : 1960 Attending Physician: Chucho Lindsay Date of Service: 06/06/2025 Referring Physician(s) : Dr. Mcgee Diagnosis: C34.2 - Malignant neoplasm of middle lobe, bronchus or lung, Diagnosed 05/22/2025 (Active) C79.31 - Secondary malignant neoplasm of brain, Diagnosed 05/22/2025 (Active) Radiotherapy to date: Course: whole brain, Treatment Site: [id number], Ref. ID: Brain, Energy: 6X, Dose/Fx (cGy): 300, #Fx: 3 / 10, Dose Correction (cGy): 0, Total Dose Delivered (cGy): 900, Start Date: 06/01/2025, Elapsed Days: 5 Medications: New sulfamethoxazole-trimethoprim [Bactrim DS] 800-160 mg tablet 1 tab PO BID 7 Days Qty: 14 0RF No Action metoprolol tartrate 25 mg tablet 25 mg PO BID (DME) Dexcom G7 Sensor Device See Rx Instructions .MEDSUPPLY Qty: 1 2RF Rx Instructions: As directed (DME) Dexcom G7 Electronic Heat Seal Operator Misc See Rx Instructions miscellaneous .MEDSUPPLY Qty: 1 0RF Rx Instructions: As directed dapagliflozin propanediol [Farxiga] 10 mg tablet 10 mg PO QAM Qty: 30 2RF (DME) Dexcom G7 Transmitter device See Rx Instructions .ROUTE .MEDSUPPLY Qty: 1 2RF Rx Instructions: As directed insulin lispro [Humalog KwikPen Insulin] 100 unit/mL insulin pen 1 unit SUBCUT .COMPLEX Qty: 15 0RF Rx Instructions: Use moderate sliding scale with dosing four times daily (DME) lancets Misc See Rx Instructions .MEDSUPPLY Qty: 200 0RF Rx Instructions: Use as directed to prick skin for blood sugar checks (DME) blood-glucose meter Misc See Rx Instructions .MEDSUPPLY Qty: 1 0RF Rx Instructions: Use as directed for checking blood sugar (DME) Blood Glucose Test Strip See Rx Instructions .MEDSUPPLY Qty: 200 0RF Rx Instructions: Use as directed with glucometer to check blood sugar alcohol swabs Pads, Medicated 1 pad topical DIRECTED Qty: 200 0RF Rx Instructions: Use as directed to clean skin prior to finger stick or medication injection lisinopril 20 mg tablet 20 mg PO DAILY amlodipine 10 mg tablet 10 mg PO DAILY aspirin [Adult Low Dose Aspirin] 81 mg tablet,delayed release (DR/EC) 81 mg PO DAILY glipizide 5 mg tablet 10 mg PO BID albuterol sulfate [Ventolin HFA] 90 mcg/actuation HFA aerosol inhaler 2 puff inhalation Q6H PRN (Reason: Shortness Of Breath) Qty: 8.5 3RF Spiriva Respimat 2.5 mcg/actuation mist 2 puff inhalation DAILY Qty: 4 3RF ciprofloxacin HCl 750 mg tablet 750 mg PO BID Qty: 14 0RF ondansetron HCl 4 mg tablet 4 mg PO Q6H PRN (Reason: nausea and vomiting) Qty: 30 3RF prochlorperazine maleate [Compazine] 10 mg tablet 10 mg PO Q4H PRN (Reason: mild nausea) Qty: 30 3RF dexamethasone 2 mg tablet 2 mg PO BID Qty: 30 0RF lidocaine-prilocaine 2.5-2.5 % cream 1 applic topical .COMPLEX Qty: 30 2RF Rx Instructions: Apply quarter-size amount to port site 30 minutes prior to access; cover with cling wrap simvastatin 40 mg tablet 40 mg PO DAILY Qty: 90 1RF levothyroxine 100 mcg tablet 100 mcg PO DAILY Qty: 60 1RF Reason for visit: The patient is being seen today as part of their regularly scheduled weekly on treatment visits to assess for acute toxicities from radiotherapy. Review of Systems: Patient went to the ER last night for minimal vaginal bleeding. Labs showed platelet count 77,000 with her last dose of chemotherapy on May 22. She also had an elevated white count of 15.93 but is also on 12 mg of dexamethasone daily for brain mets. No other voiced complaints at this time. Vital Signs: Performed on 06/06/2025 1:23 PM BMI - 30.857 kg/m2 (high), Height - 60 in, Weight - 158 lbs, Temperature - 97.4 f, Pulse - 73 /min, Respiration - 16 /min, O2 Sat - 98 %, Pain - 0, Fatigue - 0 and BP - 117/ 73 mm(hg). Physical Exam: AAOX3. Skin iact. Imaging: Radiation therapy imaging related to accurate target localization (i.e. KV, MV and CBCT) was reviewed. Appropriate changes, if any, were made to ensure treatment accuracy. Plan: Patient has elevated white count most likely secondary to steroid ingestion Will need steroid taper at the end of her XRT for WBRT. Patient will complete WBRT next . Platelet count of 77,000 probably reaching nuria at this point as her last chemo was May 22. Signed by: Chucho Lindsay 06/06/2025 1:53:34 PM
[2025-06-08 10:31] LABS: Thyroid Stimulating Hormone 5.94 uIU/mL (0.27-4.20)
[2025-06-08] MEDS: dexamethasone 4 mg/mL INJ 5 mL 12 MG IV (10:37)
[2025-06-08] MEDS: diphenhydrAMINE 50 mg/mL SDV 1mL 25 MG IVP (10:41)
[2025-06-08] MEDS: ondansetron 2 mg/ML SDV 2 mL 8 MG IVP (10:42)
[2025-06-08 11:39] LABS: Glucose Urine UA 3+ (Normal); Nitrate Urine Negative (Negative)
[2025-06-08 11:44] LABS: Add Urine Microscopic? YES
[2025-06-08 11:46] LABS: Specific Gravity, Urine 1.035 (1.005-1.030)
[2025-06-08] MEDS: CARBOplatin 450 MG in sodium chloride 0.9% 500 ML 545 MG IV (11:56)
[2025-06-08] MEDS: etoposide 170 MG in sodium chloride 0.9%(non-DEHP) 500 ML 508.5 MG IV (13:02)
[2025-06-08] MEDS: LORazepam 1 MG/0.5 ML injection 0.25 MG IVP (13:06)
--- NOTE | 2025-06-08 13:19 | PC.NURSE ---
Addendum entered by Marleen Ladd RN 06/08/25 14:53: Verified correct dosage, administration, and waste of Lorazepam for this patient with ALPHONSO Lara - Marleen Ladd RN Original Note: 1315- Verified Lorazepam 0.25mg IV push at 0.125ml from pharmacy vial 1mg/0.5ml. Verified waste check 0.75mg and draw of medication with Marleen Ladd Rn - Alphonso Lara
[2025-06-08 14:35] VITALS: BP 124/67; PULSE 69; RESP 16; TEMP 36.1; O2SAT 96
[2025-06-09] MEDS: ondansetron 2 mg/ML SDV 2 mL 8 MG IVP (09:22)
[2025-06-09] MEDS: etoposide 170 MG in sodium chloride 0.9%(non-DEHP) 500 ML 508.5 MG IV (09:53)
[2025-06-09 11:08] VITALS: BP 130/70; PULSE 81; RESP 18; TEMP 36.9; O2SAT 96
[2025-06-12 10:47] VITALS: BP 104/65; PULSE 80; O2SAT 98
[2025-06-12] MEDS: etoposide 170 MG in sodium chloride 0.9%(non-DEHP) 500 ML 508.5 MG IV (11:37)
[2025-06-12 12:50] VITALS: BP 144/68; PULSE 80; TEMP 37.1
[2025-06-12] MEDS: pegfilgrastim 6 mg/0.6 mL Kit (onpro) SUBCUT (12:53)
== END 2025-06-12 23:59 | disposition home or self-care (01) ==
PROVIDERS: Nurse Practitioner; Nurse Practitioner Family; PCP Family Medicine; Visit Provider Radiology Radiation Oncology
DX: Z53.9 Procedure and treatment not carried out, unspecified reason; Z51.11 Encounter for antineoplastic chemotherapy; Z51.0 Encounter for antineoplastic radiation therapy; C34.2 Malignant neoplasm of middle lobe, bronchus or lung; C79.31 Secondary malignant neoplasm of brain; Z79.634 Long term (current) use of topoisomerase inhibitor
CPT/HCPCS: 36415; 77387; 77412; 78815; 80053; 80061; 81001; 83036; 84439; 84443; 85025; 96367; 96375; 96377; 96413; 96415; 99024; A9552; J1100; J1200; J1453; J2060; J2405; J2469; J2506; J3490; J7030; J7040; J7050; J9045; J9181; J9999

== ENCOUNTER 2025-06-15 08:38 | Oncology outpatient (recurring) (ONCR) | payer MEDICAID, SELFPAY ==
--- NOTE | 2025-06-13 13:39 | ONCRAD TMN_ITS ---
Radiation Oncology Weekly Treatment Management Patient: Cherrie Chew MR#: [id number] : 1960 Attending Physician: Dr. Natalie Hernández Date of Service: 06/13/2025 Referring Physician(s) : Diagnosis: C34.2 - Malignant neoplasm of middle lobe, bronchus or lung, Diagnosed 05/22/2025 (Active) C79.31 - Secondary malignant neoplasm of brain, Diagnosed 05/22/2025 (Active) Radiotherapy to date: Course: whole brain, Treatment Site: [id number], Ref. ID: Brain, Energy: 6X, Dose/Fx (cGy): 300, #Fx: 8 / 10, Dose Correction (cGy): 0, Total Dose Delivered (cGy): 2,400, Start Date: 06/01/2025, End Date: 06/13/2025, Elapsed Days: 12 Reason for visit: The patient is being seen today as part of their regularly scheduled weekly on treatment visits to assess for acute toxicities from radiotherapy. Review of Systems: Patient has noticed that her taste is change and her tongue is become sore. She also has noticed her hearing is worsened. 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 Vital Signs: Performed on 06/13/2025 1:19 PM BMI - 29.998 kg/m2 (high), Height - 60 in, Weight - 153.6 lbs, Temperature - 97.1 f, Pulse - 86 /min, Respiration - 18 /min, O2 Sat - 96 %, Pain - 0, Fatigue - 0 and BP - 104/ 54 mm(hg)(/low). Physical Exam: On exam her oral cavity reveals thrush across her tongue Imaging: Radiation therapy imaging related to accurate target localization (i.e. KV, MV and CBCT) was reviewed. Appropriate changes, if any, were made to ensure treatment accuracy. Plan: Will continue with her treatments. I have given her instructions to taper her steroids over the next 2 weeks. We have also sent Diflucan to her pharmacy to take for 10 days. Signed by: Dr. Natalie Hernández 06/13/2025 1:38:21 PM
--- NOTE | 2025-06-20 08:03 | N.ONRD TS_ITS ---
Radiation Oncology Treatment Summary Patient: Cherrie Chew MR#: [id number] : 1960 Age: 64 Sex: Female Dictated by: Dr. Natalie Hernández Date of Service: 06/15/2025 Referring Physician(s) : Dr. Mcgee Diagnosis: C34.2 - Malignant neoplasm of middle lobe, bronchus or lung, Diagnosed 05/22/2025 (Active) C79.31 - Secondary malignant neoplasm of brain, Diagnosed 05/22/2025 (Active) Radiotherapy to Date: Course: whole brain Treatment Site: [id number], Ref. ID: Brain, Energy: 6X, Dose/Fx (cGy): 300, #Fx: , Dose Correction (cGy): 0, Total Dose Delivered (cGy): 3,000, Start Date: 06/01/2025, End Date: 06/15/2025, Elapsed Days: 14 Clinical Summary: The patient tolerated RT well. She had mild faigue. Plan: End of treatment today. Continue on the above medication until the skin reaction resolves. Follow up in one month. Signed by: Dr. Natalie Hernández>06/20/2025 8:02:25 AM <<Signature on File>>
== END 2025-06-16 23:59 | disposition home or self-care (01) ==
PROVIDERS: PCP Family Medicine; Visit Provider Radiology Radiation Oncology
DX: Z53.9 Procedure and treatment not carried out, unspecified reason (principal); Z51.11 Encounter for antineoplastic chemotherapy; C34.31 Malignant neoplasm of lower lobe, right bronchus or lung; Z79.899 Other long term (current) drug therapy; Z79.634 Long term (current) use of topoisomerase inhibitor; Z79.52 Long term (current) use of systemic steroids; R35.0 Frequency of micturition; E03.9 Hypothyroidism, unspecified; Z51.0 Encounter for antineoplastic radiation therapy; C34.2 Malignant neoplasm of middle lobe, bronchus or lung; C79.31 Secondary malignant neoplasm of brain; C77.9 Secondary and unspecified malignant neoplasm of lymph node, unspecified; N63.0 Unspecified lump in unspecified breast; E27.8 Other specified disorders of adrenal gland; M89.9 Disorder of bone, unspecified
CPT/HCPCS: 77336; 77387; 77412

== ENCOUNTER 2025-07-07 08:20 | Oncology outpatient (recurring) (ONCR) | payer MEDICAID, SELFPAY ==
[2025-07-03] VITALS (12 sets, daily range): BP systolic 76–112; BP diastolic 46–64; PULSE 63–81; RESP 16–17; TEMP 36.7–37.4; O2SAT 96–99
[2025-07-03 09:27] LABS: Hematocrit 24.7 % (36-47); Hemoglobin 7.60 g/dL (11.27-16.99); Mean Corpuscular HGB Conc 30.8 g/dL (30-55); Mean Corpuscular Hemoglobin 29.0 pg (27-33); Mean Corpuscular Volume 94.3 fl (85-98); Nucleated Red Blood Cells % 0.3 %; Platelet Count 293 10^3/cmm (157-399); Red Blood Count 2.62 10^6/uL (3.85-5.65); White Blood Count 11.84 10^3/uL (3.29-11.43)
[2025-07-03 09:54] LABS: Alanine Aminotransferase 12 U/L (0-33); Albumin Level 3.8 g/dL (3.5-5.2); Alkaline Phosphatase 196 U/L (35-105); Anion Gap 13.8 (5-19); Aspartate Amino Transferase 16 U/L (0-32); Blood Urea Nitrogen 14 mg/dL (8-23); Calcium 9.3 mg/dL (8.5-10.5); Carbon Dioxide 27 mmol/L (22-29); Chloride 103 mmol/L (98-107); Creatinine Clr Calc Pharmacy 40.9275; Globulin 3.0 g/dL (1.3-4.6); Glucose 209 mg/dL (65-115); Osmolality Calculated 295 mOsm/kg (285-295); Potassium 4.8 mmol/L (3.5-5.1); Sodium 139 mmol/L (136-145); Total Protein 6.8 g/dL (6.6-8.7)
[2025-07-03] MEDS: ondansetron 2 mg/ML SDV 2 mL 8 MG IVP (09:57)
[2025-07-04 09:28] VITALS: BP 123/70; PULSE 86; RESP 17; TEMP 37.5; O2SAT 98
[2025-07-04 09:42] LABS: Hematocrit 32.9 % (36-47); Hemoglobin 10.60 g/dL (11.27-16.99); Mean Corpuscular HGB Conc 32.2 g/dL (30-55); Mean Corpuscular Hemoglobin 29.6 pg (27-33); Mean Corpuscular Volume 91.9 fl (85-98); Nucleated Red Blood Cells % 0.2 %; Platelet Count 259 10^3/cmm (157-399); Red Blood Count 3.58 10^6/uL (3.85-5.65); White Blood Count 12.62 10^3/uL (3.29-11.43)
[2025-07-04 10:04] LABS: Alanine Aminotransferase 14 U/L (0-33); Albumin Level 3.6 g/dL (3.5-5.2); Alkaline Phosphatase 181 U/L (35-105); Anion Gap 12.6 (5-19); Aspartate Amino Transferase 18 U/L (0-32); Blood Urea Nitrogen 12 mg/dL (8-23); Calcium 8.6 mg/dL (8.5-10.5); Carbon Dioxide 26 mmol/L (22-29); Chloride 105 mmol/L (98-107); Globulin 2.6 g/dL (1.3-4.6); Glucose 258 mg/dL (65-115); Osmolality Calculated 297 mOsm/kg (285-295); Potassium 4.6 mmol/L (3.5-5.1); Sodium 139 mmol/L (136-145); Total Protein 6.2 g/dL (6.6-8.7)
[2025-07-05 08:31] VITALS: BP 136/84; PULSE 86; RESP 17; TEMP 37.6; O2SAT 98
[2025-07-05] MEDS: ondansetron 2 mg/ML SDV 2 mL 8 MG IVP (08:45)
[2025-07-05] MEDS: dexamethasone 4 mg/mL INJ 5 mL 12 MG IV (08:45)
[2025-07-05] MEDS: [UNRECOGNIZED DRUG - REMARK] 508.25 MG IV (10:48)
[2025-07-05 12:04] VITALS: BP 155/73; PULSE 87; RESP 18; TEMP 36.3; O2SAT 98
[2025-07-06 08:30] VITALS: BP 153/79; PULSE 98; TEMP 37.2; O2SAT 93
[2025-07-06] MEDS: ondansetron 2 mg/ML SDV 2 mL 8 MG IVP (08:38)
[2025-07-06] MEDS: [UNRECOGNIZED DRUG - REMARK] 508.25 MG IV (09:14)
[2025-07-06 10:45] VITALS: BP 147/78; PULSE 94; RESP 18; TEMP 37.2; O2SAT 96
[2025-07-07 08:23] VITALS: BP 157/74; PULSE 96; RESP 17; TEMP 37.4; O2SAT 97
[2025-07-07] MEDS: [UNRECOGNIZED DRUG - REMARK] 508.25 MG IV (08:51)
[2025-07-07] MEDS: pegfilgrastim 6 mg/0.6 mL Kit (onpro) SUBCUT (10:11)
[2025-07-07 10:18] VITALS: BP 154/95; PULSE 74; RESP 17; TEMP 37.5; O2SAT 96
== END 2025-07-07 23:59 | disposition home or self-care (01) ==
PROVIDERS: Internal Medicine Medical Oncology; Nurse Practitioner; PCP Family Medicine; Visit Provider Radiology Radiation Oncology
DX: Z51.11 Encounter for antineoplastic chemotherapy; C34.31 Malignant neoplasm of lower lobe, right bronchus or lung; Z79.634 Long term (current) use of topoisomerase inhibitor; Z79.899 Other long term (current) drug therapy; Z53.9 Procedure and treatment not carried out, unspecified reason
CPT/HCPCS: 36430; 80053; 85025; 86850; 86900; 86920; 96365; 96367; 96372; 96375; 96377; 96413; J1100; J1453; J2405; J2469; J2506; J3490; J7030; J7040; J7050; J9045; J9181; J9999; P9016

== ENCOUNTER 2025-07-27 13:51 | Emergency (ER) | payer MEDICAID, SELFPAY ==
[2025-07-27 13:38] VITALS: BP 112/67; PULSE 86; RESP 17; TEMP 37.2; O2SAT 96; BMI 28.5
--- NOTE | 2025-07-27 13:42 | XR_ITS ---
WS: [id number] XR chest 1V portable [id number] REASON FOR EXAM: cp FINDINGS: Chemotherapy infusion port overlying the right chest with trans right internal jugular infusion catheter in the mid SVC. Moderate tortuosity and ectasia of the ascending and descending thoracic aorta with normal heart size. Decrease in the volume of the previously demonstrated large right hilar mass compared to 05/03/2025. Areas of atelectasis in the right lower lobe. Mild hyperexpansion of the left upper lobe. No acute pulmonary parenchymal or pleural abnormality. XR/XR chest 1V portable [id number] IMPRESSION: Primary right lung neoplasm decreased in volume compared to 05/03/2025. No acute findings.
--- NOTE | 2025-07-27 13:42 | ECG_ITS ---
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 Measurements Intervals [place] Rate: 72 P: 42 IA: 103 QRS: 16 QRSD: 110 T: 61 QT: 398 QTc: 438 Interpretive Statements SINUS RHYTHM WITH SHORT IA INTERVAL MODERATE T-WAVE ABNORMALITY, CONSIDER ANTERIOR ISCHEMIA [-0.1+ mV T-WAVE IN V3/V4] Poor R wave progression Compared to ECG 04/29/2025 19:57:59 Short IA interval now present T-wave abnormality now present Possible ischemia now present Myocardial infarct finding no longer present Electronically Signed On 07-27-2025 17:16:20 BUSINESS APPLICATIONS DEVELOPER by Hernandez Hunt M.D. [id number] [id number]
[2025-07-27 13:54] LABS: Hematocrit 28.7 % (36-47); Hemoglobin 9.40 g/dL (11.27-16.99); Mean Corpuscular HGB Conc 32.8 g/dL (30-55); Mean Corpuscular Hemoglobin 29.9 pg (27-33); Mean Corpuscular Volume 91.4 fl (85-98); Nucleated Red Blood Cells % 0 %; Platelet Count 292 10^3/cmm (157-399); Red Blood Count 3.14 10^6/uL (3.85-5.65); White Blood Count 11.35 10^3/uL (3.29-11.43)
--- NOTE | 2025-07-27 14:05 | ED_ITS ---
HPI - Chest Pain 2 General: Chief Complaint: Chest Pain Stated Complaint: chest pain Source: patient and EMS Mode of arrival: EMS Limitations: no limitations History of Present Illness: 64-year-old female has a history of lung cancer states that she started having chest pain after breathing treatment today. States pain was of sharp pain is since minimalized states pain currently only at 2 out of 10. She denies any increased shortness of breath denies any vomiting or diarrhea. Related Data Home Medications ?Medication ?Instructions ?Recorded ?Confirmed metoprolol tartrate 25 mg tablet 25 mg PO BID 04/15/21 07/25/25 lisinopril 20 mg tablet 20 mg PO DAILY 02/06/2505/11 glipizide 5 mg tablet 10 mg PO BID 05/23/25 doxycycline hyclate 100 mg capsule 100 mg PO BID 06/2007/25/25 methylprednisolone 4 mg tablets in 4 mg PO DAILY 06/2007/25/25 a dose pack lancets 28 gauge (TRUEplus Lancets) #100 ea 07/20/25 1 09/25/24 levothyroxine 100 mcg tablet 88 mcg PO DAILY 07/20/25 07/25/25 simvastatin 20 mg tablet 20 mg PO ONCE 07/20/2507/25 Previous Rx's ?Medication ?Instructions ?Recorded ondansetron HCl 4 mg tablet 4 mg PO Q6H PRN nausea and 05/15/25 vomiting #30 tabs albuterol sulfate 90 mcg/actuation 2 puff inhalation Q 6H PRN 05/17/25 aerosol inhaler (Ventolin HFA) Shortness Of Breath #8. 5 grams tiotropium bromide 2.5 2 puff inhalation DAILY #4 g abhay 05/17/25 mcg/actuation mist for inhalation (Spiriva Respimat) alcohol swabs 1 pad topical DIRECTED #2 00 ea 05/18/25 blood sugar diagnostic (Blood #200 ea 05/18/25 Glucose Test strips) blood-glucose meter #1 ea 05/18/25 insulin lispro 100 unit/mL 1 unit (0.01 mL) SUBCUT .CO MPLEX 05/18/25 subcutaneous pen (Humalog KwikPen Diabetes #15 mL (U-100) Insulin) lancets #200 ea 05/18/25 28msec G7 Transmitter device #1 ea 05/23/25 blood-glucose sensor (Dexcom G7 #1 ea 05/23/25 Sensor device) blood-glucose,transmitter supervisor,cont #1 ea 05/23/25 (Dexcom G7 Acid Purification Equipment Operator) dapagliflozin propanediol 10 mg 10 mg PO QAM #30 tabs 05/23/25 tablet (Farxiga) lidocaine-prilocaine 2.5 %-2.5 % 1 applic [employer] PLEX #30 grams 05/23/25 topical cream simvastatin 40 mg tablet 40 mg PO DAILY #90 tabs 05/17 ondansetron 8 mg disintegrating 8 mg PO Q8H #30 tabs 1 tablet fluconazole 100 mg tablet 100 mg PO DAILY thrush #10 t abs 06/13/25 scopolamine base 1 mg over 3 days 1 patch transdermal Q3D PRN nausea 06/15/25 transdermal patch and vomiting #10 ea dexamethasone 2 mg tablet 2 mg PO BID brain mets #30 t abs 07/12/25 prochlorperazine maleate 10 mg 10 mg PO Q6H PRN nausea and 07/12/25 tablet (Compazine) vomiting #30 tabs lorazepam 0.5 mg tablet 0.5 mg PO Q6H PRN nausea and 07/17/25 vomiting #30 tabs ipratropium 0.5 mg-albuterol 3 mg 3 ml inhalation Q6H PRN wheezing 07/20/25 (2.5 mg base)/3 mL nebulization #90 mL soln mucus clearing device #1 ea 07/20/25 levofloxacin 500 mg tablet 500 mg PO DAILY 7 days #7 t abs 07/25/25 promethazine 25 mg tablet 25 mg PO Q6H PRN nausea and 07/27/25 vomiting #60 tabs Allergies Allergy/AdvReac Type Severity Reaction Status Date / Time amoxicillin Allergy ALGY-Hives Verified 07/25/25 09:03 naproxen Allergy ALGY-Hives Verified 07/25/25 09:03 Review of Systems 2 Card: Reports: chest pain PFSH ED 2 PFSH: Medical History Acute UTI (urinary tract infection) Port-A-Cath in place Hypertension Surgical History Hx of section x2 Hx of tubal ligation Hx laparoscopic cholecystectomy History of open heart surgery age 5 History of lumpectomy of left breast Hx of tonsillectomy Family History Grandmother Small cell lung cancer Grandfather Lung cancer Mother Small cell lung cancer Social History Smoking and tobacco/nicotine status: former use of tobacco/nicotine (04/2024) Physical Exam 2 Const: COMMON NORMALS: patient oriented x3 HENMT: COMMON NORMALS: normocephalic and atraumatic HEAD & SCALP: n ormocephalic and atraumatic Eye: COMMON NORMALS: Equal, round and reactive pupils present and EOMs intact bilaterally PUPIL: Yes Equal, round and reactive pupils present Neck/C-Spine: COMMON NORMALS: full ROM and supple Chest: COMMONS NORMALS: normal inspection of the chest and normal palpation of entire chest wall Resp: COMMON NORMALS: normal respiratory effort, No retractions, No use of accessory muscles and clear to auscultation bilaterally AUSCULTATION: clear to auscultation bilaterally Cardio: COMMON NORMALS: regular rate, regular rhythm and No murmurs present (Cardio) RATE: regular rate RHYTHM: regular rhythm GI: COMMON NORMALS: Normal to inspection, nondistended, normoactive bowel sounds present, Soft to palpation, non-tender and no masses PALPATION: Yes Soft to palpation Extremity: COMMON NORMALS: normal to inspection and full ROM Neuro: COMMON NORMALS: patient oriented x3, moves all extremities and no focal motor deficits Psych: COMMON NORMALS: mental status grossly normal, Normal thought process present and cooperative THOUGHT PROCESS: Normal thought process present Skin: COMMON NORMALS: no rashes or lesions noted and no wounds GENERAL SKIN EXAM: no rashes or lesions noted Course 2 Vital Signs: Vital signs: Vital Signs Temperature 99.0 F 07/27/25 13:38 Pulse Rate 74 07/27/25 15:07 Respiratory Rate 15 07/27/25 14:13 Blood Pressure 85/48 07/27/25 15:07 Pulse Oximetry 74 L 07/27/25 15:07 Oxygen Delivery Me thod Nasal Cannula 07/27/25 15:06 Oxygen Flow Rate 2 07/27/25 15:06 MDM - Chest Pain Medical Decision Making Patient presents for sharp chest pain is atypical in nature. Differential includes pneumonia, pneumothorax, pulm emboli, ACS. Patient's pain is resolved and has no pain here she has no signs of pulmonary emboli here. Chest x-ray showed previous findings of her cancer no signs of pneumonia or pneumothorax. Troponins here are negative no signs ACS could be cancer related pain she felt much improved here she stable for discharge did go over her all of her findings with her she is to return if worsening she understands agrees to plan. EKG interpreted by me at 1346 normal sinus rhythm heart rate [address] elevation QRS 110 QTc 423 Medical Records I reviewed the patient's medical records. Lab Data I reviewed the patient's lab results. 07/27/25 13:16 07/27/25 13:16 Radiology Impressions Chest X-Ray 07/27/25 13:42 IMPRESSION: Primary right lung neoplasm decreased in volume compared to 05/03/2025. No acute findings. Laboratory Results WBC 11.35 10^3/uL (3.29-11.43) 07/27/25 13:16 RBC 3.14 10^6/uL (3.85-5.65) L 07/27/25 13:16 Hgb 9.40 g/dL (11.27-16.99) L 07/27/25 13:16 Hct 28.7 % (36-47) L 07/27/25 13:16 MCV 91.4 fl (85-98) 07/27/25 13:16 MCH 29.9 pg (27-33) 07/27/25 13:16 MCHC 32.8 g/dL (30-55) 07/27/25 13:16 RDW 16.6 % (12.1-15.1) H 07/27/25 13:16 Plt Count 292 10^3/cmm (157-399) 07/27/25 13:16 MPV 9.7 fL (7.4-10.4) 07/27/25 13:16 Neut % (Auto) 80.6 % 07/27/25 13:16 Lymph % (Auto) 8.9 % 07/27/25 13:16 [place] % (Auto) 7.5 % 07/27/25 13:16 Eos % (Auto) 0.0 % 07/27/25 13:16 Baso % (Auto) 0.3 % 07/27/25 13:16 Neut # (Auto) 9.15 10^3/uL (1.8-7.7) H 07/27/25 13:16 Lymph # (Auto) 1.0 10^3/uL (0.8-4.8) 07/27/25 13:16 [place] # (Auto) 0.9 10^3/uL (0.2-0.9) 07/27/25 13:16 Eos # (Auto) 0.0 10^3/uL (0.0-0.8) 07/27/25 13:16 Baso # (Auto) 0.0 10^3/uL (0.0-0.1) 07/27/25 13:16 Nucleated RBC % (auto) 0 % 07/27/25 13:16 Nucleated RBCs # 0.0 /100WBC 07/27/25 13:16 Sodium 136 mmol/L (136-145) 07/27/25 13:16 Potassium 4.4 mmol/L (3.5-5.1) 07/27/25 13:16 Chloride 99 mmol/L (98-107) 07/27/25 13:16 Carbon Dioxide 22 mmol/L (22-29) 07/27/25 13:16 Anion Gap 19.4 (5-19) H 07/27/25 13:16 BUN 22 mg/dL (8-23) 07/27/25 13:16 Creatinine 0.9 mg/dL (0.5-0.9) 07/27/25 13:16 GFR Calculation 63.2 mL/min (90-130) L 07/27/25 13:16 Glucose 251 mg/dL (65-115) H 07/27/25 13:16 Calculated Osmolality 294 mOsm/kg (285-295) 07/27/25 13:16 Calcium 9.5 mg/dL (8.5-10.5) 07/27/25 13:16 Total Bilirubin 0.3 mg/dL (0.15-1.2) 07/27/25 13:16 AST 16 U/L (0-32) 07/27/25 13:16 ALT 22 U/L (0-33) 07/27/25 13:16 Alkaline Phosphatase 134 U/L (35-105) H 07/27/25 13:16 Troponin T Baseline 20 ng/L (0-10) H 07/27/25 13:16 Troponin T 60 Minute 18.20 ng/L (0-10) H 07/27/25 14:16 Delta Troponin T -1.80 ABS# (0-10) L 07/27/25 14:16 NT-Pro-B Natriuret Pep 537 pg/mL (0-125) H 07/27/25 13:16 Total Protein 6.4 g/dL (6.6-8.7) L 07/27/25 13:16 Albumin 4.2 g/dL (3.5-5.2) 07/27/25 13:16 Globulin 2.2 g/dL (1.3-4.6) 07/27/25 13:16 Lipase 41 U/L (13-60) 07/27/25 13:16 All radiology interpretation(s) finalized by discharge Discharge Plan Discharge Patient Disposition: Home Clinical Impression: Atypical chest pain Condition: Stable Prescriptions: No Action metoprolol tartrate 25 mg tablet 25 mg PO BID (DME) Dexcom G7 Sensor Device See Rx Instructions .MEDSUPPLY Qty: 1 2RF Rx Instructions: As directed (DME) Dexcom G7 Acid Purification Equipment Operator Misc See Rx Instructions miscellaneous .MEDSUPPLY Qty: 1 0RF Rx Instructions: As directed dapagliflozin propanediol [Farxiga] 10 mg tablet 10 mg PO QAM Qty: 30 2RF (DME) Dexcom G7 Transmitter device See Rx Instructions .ROUTE .MEDSUPPLY Qty: 1 2RF Rx Instructions: As directed insulin lispro [Humalog KwikPen Insulin] 100 unit/mL insulin pen 1 unit SUBCUT .COMPLEX Qty: 15 0RF Rx Instructions: Use moderate sliding scale with dosing four times daily (DME) lancets Misc See Rx Instructions .MEDSUPPLY Qty: 200 0RF Rx Instructions: Use as directed to prick skin for blood sugar checks (DME) blood-glucose meter Misc See Rx Instructions .MEDSUPPLY Qty: 1 0RF Rx Instructions: Use as directed for checking blood sugar (DME) Blood Glucose Test Strip See Rx Instructions .MEDSUPPLY Qty: 200 0RF Rx Instructions: Use as directed with glucometer to check blood sugar alcohol swabs Pads, Medicated 1 pad topical DIRECTED Qty: 200 0RF Rx Instructions: Use as directed to clean skin prior to finger stick or medication injection simvastatin 20 mg tablet 20 mg PO ONCE (DME) lancets [TRUEplus Lancets] 28 gauge misc See Rx Instructions .ROUTE .MEDSUPPLY Qty: 100 Rx Instructions: As directed levothyroxine 100 mcg tablet 88 mcg PO DAILY ipratropium-albuterol 0.5 mg-3 mg(2.5 mg base)/3 mL solution for nebulization 3 ml inhalation Q6H PRN (Reason: wheezing) Qty: 90 6RF (DME) mucus clearing device Device See Rx Instructions .MEDSUPPLY Qty: 1 0RF Rx Instructions: As directed doxycycline hyclate 100 mg capsule 100 mg PO BID methylprednisolone 4 mg tablets,dose pack 4 mg PO DAILY levofloxacin 500 mg tablet 500 mg PO DAILY 7 Days Qty: 7 1RF lisinopril 20 mg tablet 20 mg PO DAILY glipizide 5 mg tablet 10 mg PO BID albuterol sulfate [Ventolin HFA] 90 mcg/actuation HFA aerosol inhaler 2 puff inhalation Q6H PRN (Reason: Shortness Of Breath) Qty: 8.5 3RF Spiriva Respimat 2.5 mcg/actuation mist 2 puff inhalation DAILY Qty: 4 3RF ondansetron 8 mg tablet,disintegrating 8 mg PO Q8H Qty: 30 6RF ondansetron HCl 4 mg tablet 4 mg PO Q6H PRN (Reason: nausea and vomiting) Qty: 30 3RF lidocaine-prilocaine 2.5-2.5 % cream 1 applic topical .COMPLEX Qty: 30 2RF Rx Instructions: Apply quarter-size amount to port site 30 minutes prior to access; cover with cling wrap simvastatin 40 mg tablet 40 mg PO DAILY Qty: 90 1RF fluconazole 100 mg tablet 100 mg PO DAILY Qty: 10 0RF scopolamine base 1 mg over 3 days patch 3 day 1 patch transdermal Q3D PRN (Reason: nausea and vomiting) Qty: 10 0RF Rx Instructions: place behind ear every 3 days as need prochlorperazine maleate [Compazine] 10 mg tablet 10 mg PO Q6H PRN (Reason: nausea and vomiting) Qty: 30 3RF Rx Instructions: DO NOT TAKE DIRECTLY WITH ONDANESTRON AND MUST STOP SCOPALOMINE PATCH PRIOR TO USE may alternate with lorazepam (take one medication-example: Compazine-and then in 3 hours may try lorazepam and then repeat Compazine 3 hours after the lorazepam so still takes each agent every 6 hours. dexamethasone 2 mg tablet 2 mg PO BID Qty: 30 0RF lorazepam 0.5 mg tablet 0.5 mg PO Q6H PRN (Reason: nausea and vomiting) Qty: 30 1RF Rx Instructions: 1/2 to 2 tablets oral or sublingual every 6 hours promethazine 25 mg tablet 25 mg PO Q6H PRN (Reason: nausea and vomiting) Qty: 60 3RF Discharge Orders: Discharge ED (Routine); Ordered 07/27/25 Ordered By: Jimi Swain Referrals: Jose Alfredo Bhatti MD [Primary Care Provider, [facility]] Discharge Diet: Advance as tolerated Discharge Activity: Resume usual activity Patient Instructions: Chest Pain (ED) Print Language: Welsh Coding Level of Care Code ED Women'S Ministry Director for Chg Fwd Heart Score HEART Score Components History: Slightly Suspicous EKG: Normal Age: 45-64 yrs Risk Factors: 1 or 2 Risk Factors Troponin: Baseline Trop <16 ng/L HEART Score RESULT HEART Score: 2
[2025-07-27 14:12] LABS: Troponin(5th) Baseline 20 ng/L (0-10)
[2025-07-27 14:13] VITALS: RESP 15
[2025-07-27] MEDS: morphine 4 mg/mL SDV 1 mL IVP (14:13)
[2025-07-27] MEDS: ondansetron 2 mg/ML SDV 2 mL 4 MG IVP (14:13)
[2025-07-27 14:26] LABS: Alanine Aminotransferase 22 U/L (0-33); Albumin Level 4.2 g/dL (3.5-5.2); Alkaline Phosphatase 134 U/L (35-105); Anion Gap 19.4 (5-19); Aspartate Amino Transferase 16 U/L (0-32); Blood Urea Nitrogen 22 mg/dL (8-23); Calcium 9.5 mg/dL (8.5-10.5); Carbon Dioxide 22 mmol/L (22-29); Chloride 99 mmol/L (98-107); Globulin 2.2 g/dL (1.3-4.6); Glucose 251 mg/dL (65-115); Lipase 41 U/L (13-60); NT Pro B Type Natriuretic Pept 537 pg/mL (0-125); Osmolality Calculated 294 mOsm/kg (285-295); Potassium 4.4 mmol/L (3.5-5.1); Sodium 136 mmol/L (136-145); Total Protein 6.4 g/dL (6.6-8.7)
[2025-07-27 15:06] VITALS: BP 85/48; PULSE 74; O2SAT 96
--- NOTE | 2025-07-27 15:06 | PC.NURSE ---
Provider notified of soft BP.
[2025-07-27 15:07] VITALS: BP 85/48; PULSE 74; O2SAT 74
== END 2025-07-27 15:19 | disposition home or self-care (01) ==
PROVIDERS: Emergency Provider Emergency Medicine; PCP Family Medicine
DX: R07.89 Other chest pain (principal); Z79.4 Long term (current) use of insulin; Z87.891 Personal history of nicotine dependence; I10 Essential (primary) hypertension
CPT/HCPCS: 71045; 80053; 83690; 83880; 84484; 85025; 93005; 96374; 96375; 99285; J2270; J2405

== ENCOUNTER 2025-08-04 16:00 | Oncology outpatient (recurring) (ONCR) | payer MEDICAID, SELFPAY ==
--- NOTE | 2025-07-18 11:25 | ONCRAD EPV_ITS ---
Radiation Oncology Established Patient Visit Patient: Cherrie Chew [id number] : 1960 Age: 64 Sex: Female Dictated by: Dr. Natalie Hernández Date of Service: 07/18/2025 Referring Physician(s) : Dr. Mcgee Diagnosis: C34.2 - Malignant neoplasm of middle lobe, bronchus or lung, Diagnosed 05/22/2025 (Active) C79.31 - Secondary malignant neoplasm of brain, Diagnosed 05/22/2025 (Active) Radiotherapy to Date: Course: whole brain, Treatment Site: [id number], Ref. ID: Brain, Energy: 6X, Dose/Fx (cGy): 300, #Fx: , Dose Correction (cGy): 0, Total Dose Delivered (cGy): 3,000, Start Date: 06/01/2025, End Date: 06/15/2025, Elapsed Days: 14 Current History: Patient has completed all but 1 course of chemotherapy. She does have problems with nausea during the chemotherapy. She has had no ill effects or noticed any changes from the radiation to the whole brain. She is already getting anxious about the possibility of scans in the future as she is very claustrophobic Current Medications: : albuterol sulfate 90 mcg/actuation (Ventolin HFA) 2 puffs inhalation Q6H PRN amlodipine 10 mg PO DAILY aspirin (Adult Low Dose Aspirin) 81 mg PO DAILY Held on 05/17/25. Instructions: Resume on 05/18/25. glipizide 5 mg PO DAILY levothyroxine 88 mcg PO DAILY lisinopril 20 mg PO DAILY metoprolol tartrate 25 mg PO BID ondansetron HCl 4 mg PO Q6H PRN prochlorperazine maleate (Compazine) 10 mg PO Q4H PRN simvastatin 20 mg PO DAILY tiotropium bromide 2.5 mcg/actuation (Spiriva Respimat) 2 puffs inhalation DAILY Allergies: : amoxicillin Allergy (Verified 05/18/25 07:54) ALGY-Hives naproxen Allergy (Verified 05/18/25 07:54) ALGY-Hives Current Complaints / Review of Systems: . Vital Signs: Performed on 07/18/2025 10:37 AM BMI - 28.787 kg/m2 (high), Height - 60 in, Weight - 147.4 lbs, Temperature - 96.6 f, Pulse - 71 /min, Respiration - 17 /min, O2 Sat - 95 % (low), Pain - 0, Fatigue - 0 and BP - 117/ 69 mm(hg). Physical Exam: General: Patient is sitting comfortably in her chair.. HEENT: Normocephalic atraumatic. Pupils are equal, sclera clear, extraocular muscles intact . LUNGS:. Respiratory rate is regular nonlabored HEART: Regular rate and rhythm,. . ABDOMEN: Fairly flat with minimal adipose tissue NEUROLOGIC: Patient is hard of hearing. She is alert and oriented. Gait and speech within normal limits Performance Status: 90 Lab: None pending. Pathology: Primary, c34.2 - malignant neoplasm of middle lobe, bronchus or lung, Diagnosed 05/22/2025 (active) and Primary, c79.31 - secondary malignant neoplasm of brain, Diagnosed 05/22/2025 (active) . Imaging: See HPI Impression: At this point she will follow-up with medical oncology and receive her final chemotherapy. After that additional scans will be ordered. I encouraged her to let everyone know that she is claustrophobic and will need to be premedicated for any scans. At this point we will see her back as a as needed basis. Signed by: 07/18/2025 11:24:16 AM <<Signature on File>> Time spent with patient: CPT Code: CPT Code:
[2025-07-25 09:01] LABS: Hematocrit 24.8 % (36-47); Hemoglobin 8.30 g/dL (11.27-16.99); Mean Corpuscular HGB Conc 33.5 g/dL (30-55); Mean Corpuscular Hemoglobin 30.3 pg (27-33); Mean Corpuscular Volume 90.5 fl (85-98); Nucleated Red Blood Cells % 0.2 %; Platelet Count 187 10^3/cmm (157-399); Red Blood Count 2.74 10^6/uL (3.85-5.65); White Blood Count 19.29 10^3/uL (3.29-11.43)
[2025-07-25 09:18] LABS: Alanine Aminotransferase 18 U/L (0-33); Albumin Level 4.1 g/dL (3.5-5.2); Alkaline Phosphatase 149 U/L (35-105); Anion Gap 15.0 (5-19); Aspartate Amino Transferase 12 U/L (0-32); Blood Urea Nitrogen 17 mg/dL (8-23); Calcium 9.1 mg/dL (8.5-10.5); Carbon Dioxide 25 mmol/L (22-29); Chloride 101 mmol/L (98-107); Globulin 2.4 g/dL (1.3-4.6); Glucose 156 mg/dL (65-115); Osmolality Calculated 289 mOsm/kg (285-295); Potassium 4.0 mmol/L (3.5-5.1); Sodium 137 mmol/L (136-145); Total Protein 6.5 g/dL (6.6-8.7)
[2025-07-31 12:07] LABS: Hematocrit 26.3 % (36-47); Hemoglobin 8.60 g/dL (11.27-16.99); Mean Corpuscular HGB Conc 32.7 g/dL (30-55); Mean Corpuscular Hemoglobin 30.3 pg (27-33); Mean Corpuscular Volume 92.6 fl (85-98); Nucleated Red Blood Cells % 0 %; Platelet Count 314 10^3/cmm (157-399); Red Blood Count 2.84 10^6/uL (3.85-5.65); White Blood Count 5.68 10^3/uL (3.29-11.43)
[2025-07-31 12:28] LABS: Alanine Aminotransferase 17 U/L (0-33); Albumin Level 3.9 g/dL (3.5-5.2); Alkaline Phosphatase 102 U/L (35-105); Anion Gap 16.5 (5-19); Aspartate Amino Transferase 14 U/L (0-32); Blood Urea Nitrogen 19 mg/dL (8-23); Calcium 9.0 mg/dL (8.5-10.5); Carbon Dioxide 24 mmol/L (22-29); Chloride 102 mmol/L (98-107); Globulin 2.4 g/dL (1.3-4.6); Glucose 239 mg/dL (65-115); Osmolality Calculated 298 mOsm/kg (285-295); Potassium 3.5 mmol/L (3.5-5.1); Sodium 139 mmol/L (136-145); Total Protein 6.3 g/dL (6.6-8.7)
[2025-08-01 08:15] VITALS: BP 126/75; PULSE 98; TEMP 36.7; O2SAT 94
[2025-08-01] MEDS: ondansetron 2 mg/ML SDV 2 mL 8 MG IVP (09:08)
[2025-08-01] MEDS: dexamethasone 4 mg/mL INJ 5 mL 12 MG IV (09:12)
[2025-08-01] MEDS: CARBOplatin 530 MG in sodium chloride 0.9% 500 ML 553 MG IV (10:26)
[2025-08-01] MEDS: etoposide 170 MG in sodium chloride 0.9%(non-DEHP) 500 ML 508.5 MG IV (11:40)
[2025-08-01 12:47] VITALS: BP 111/68; PULSE 79; TEMP 36.8; O2SAT 90
[2025-08-02 08:43] VITALS: BP 127/60; PULSE 62; TEMP 37.7; O2SAT 98
[2025-08-02] MEDS: ondansetron 2 mg/ML SDV 2 mL 8 MG IVP (08:53)
[2025-08-02] MEDS: etoposide 170 MG in sodium chloride 0.9%(non-DEHP) 500 ML 508.5 MG IV (09:38)
[2025-08-02 11:00] VITALS: BP 134/85; PULSE 76; TEMP 37.7; O2SAT 97
[2025-08-03 08:15] VITALS: BP 147/77; PULSE 84; TEMP 37.7; O2SAT 96
[2025-08-03] MEDS: etoposide 170 MG in sodium chloride 0.9%(non-DEHP) 500 ML 508.5 MG IV (09:33)
[2025-08-03] MEDS: pegfilgrastim 6 mg/0.6 mL Kit (onpro) SUBCUT (10:42)
[2025-08-03 10:44] VITALS: BP 124/87; PULSE 76; RESP 18; TEMP 37.7; O2SAT 97
--- NOTE | 2025-08-04 16:00 | PETR_ITS ---
PROCEDURE INFORMATION: Exam: PET/CT Skull Base to Mid-thigh Exam date and time: 08/04/2025 4:51 PM Age: 64 years old Clinical indication: Restaging small cell lung cancer. LABS AND CLINICAL REPORTS: Glucose: 75 mg/dl Treatment strategy for malignancy (PET staging): Restaging (PS) TECHNIQUE: Imaging protocol: Following at least four-hour fasting and following the injection of radiopharmaceutical, low dose CT images were obtained. Then, PET images were obtained. Attenuation corrected images were constructed using the CT scan. Fused images of PET and CT were reviewed. The standardized uptake values (SUV) reported below are maximum values within a region of interest, expressed in gm/ml. Exam includes orbital meatal line to mid-thigh. SUV normalization method: BodyWeight Radiopharmaceutical: 11.39 mCi F-18 FDG (Fluorodeoxyglucose), IV. Time of imaging post radiopharmaceutical administration: 43 minutes Injection site: right ac COMPARISON: PT PET skull to thigh INIT [id number] 05/26/2025 3:59 PM FINDINGS: Tubes, catheters and devices: Port catheter placed via the right internal jugular vein terminates in the superior vena cava. Brain: On the nondedicated limited brain images there is no abnormal distribution of the radiotracer in the kidd and white matter. Pharynx: Normal distribution of the radiotracer in nasopharyngeal, and oropharyngeal structures. Larynx: Normal distribution of the radiotracer in laryngeal structures. Lungs, pleura and trachea: Sequela of treated thyroid lung cancer noted as parahilar opacity in the superior segment of the right lower lobe measures 2.3 cm with the highest uptake of 5.8 SUV decreased from 4 cm/9.9 SUV on the prior exam in keeping with partial response. Heart: Normal physiologic uptake. There is no cardiomegaly. Coronary artery calcification is present. There is no pericardial effusion. Mediastinal space: No abnormal uptake. Liver: Normal size without abnormal radiotracer uptake. Gallbladder and biliary ducts: No abnormal uptake. Status post cholecystectomy. Pancreas: Normal distribution of radiotracer. Spleen: Normal size without abnormal radiotracer uptake. Adrenal glands: No abnormal uptake. No nodules. Kidneys and ureters: Normal physiologic uptake. No hydronephrosis. Stomach and bowel: No abnormal uptake. Intraperitoneal and retroperitoneal spaces: No abnormal uptake. No ascites. Bladder: Normal physiologic uptake. Stable trabeculation of the bladder wall Reproductive: No abnormal uptake. Vasculature: No abnormal uptake. Lymph nodes: 0.7 cm lymph node in the right upper neck on axial image 37 with increase uptake of 4.2 SUV is indeterminate. Otherwise, there is no FDG-avid lymphadenopathy in the head, chest, abdomen, pelvis, and extremities. Previously noted FDG avid lymph nodes in the right hilum and the mediastinum have resolved in keeping with response to treatment. Skeleton: Diffusely increased uptake in the bone marrow with no focal discrete lesions is likely benign. There is increased focal uptake of 10 SUV (previously 4.9 SUV within the periapical lucency of the right maxillary premolar tooth (series 202, image 30) compatible with benign inflammatory finding. Soft tissues: Multiple stable non FDG avid soft tissue nodular densities in both breasts possibly represent benign findings, for correlation with dedicated breast imaging. METRICS: Mediastinal blood pool: Max SUV of 2.3, mean SUV of 2.1 Liver uptake: Max SUV of 3, mean SUV of 2.3 PET/PET skull to thigh SUBS [id number] IMPRESSION: In comparison with 05/26/2025 there is partial response to treatment with decrease in size and uptake of the primary tumor in the right lung (from 9.9 SUV 25.8 SUV), and complete resolution of previously present increased uptake within right hilar and mediastinal lymph nodes. New mildly increased uptake within a single subcentimeter lymph node in the right upper neck is nonspecific, possibly benign reactive in nature. New increased periapical uptake in the right maxillary premolar tooth is compatible with benign inflammatory finding. No discrete focal bone lesions compatible with metastases.
== END 2025-08-16 23:59 | disposition home or self-care (01) ==
LOC: RAD 16:01 → ONCMED 08-07 09:40
PROVIDERS: PCP Family Medicine; Visit Provider Internal Medicine Medical Oncology
DX: Z53.9 Procedure and treatment not carried out, unspecified reason; C34.31 Malignant neoplasm of lower lobe, right bronchus or lung
CPT/HCPCS: 78815; 80053; 85025; 96367; 96375; 96377; 96413; 96417; A9552; J1100; J1200; J1453; J2405; J2469; J2506; J3490; J7030; J7040; J7050; J9045; J9181; J9999

== ENCOUNTER 2025-08-06 15:32 | Emergency (ER) | payer MEDICAID, SELFPAY ==
[2025-08-06 15:23] VITALS: BP 94/56; PULSE 95; RESP 17; TEMP 37; O2SAT 98; BMI 26.7
--- NOTE | 2025-08-06 15:34 | XRR_ITS ---
PROCEDURE INFORMATION: Exam: XR Chest Exam date and time: 08/06/2025 3:43 PM Age: 64 years old Clinical indication: Other: Hypotension; Additional info: Hypotension; Possible sepsis TECHNIQUE: Imaging protocol: Radiologic exam of the chest. Views: 1 view. COMPARISON: CR XR chest 1V portable [id number] 07/27/2025 2:46 PM FINDINGS: Tubes, catheters and devices: Infusion port catheter is in place with its tip in the superior vena cava. Lungs: There is no acute pulmonary infiltrate. Right hilar mass smaller again than on the previous study. Pleural spaces: Unremarkable. No pleural effusion. No pneumothorax. Heart/Mediastinum: Heart is within normal limits of size. Bones/joints: Unremarkable. XR/XR chest 1V portable [id number] IMPRESSION: 1. No acute infiltrate. 2. Right pulmonary mass further decrease in size.
[2025-08-06 15:42] LABS: Hematocrit 26.3 % (36-47); Hemoglobin 8.40 g/dL (11.27-16.99); Mean Corpuscular HGB Conc 31.9 g/dL (30-55); Mean Corpuscular Hemoglobin 30.3 pg (27-33); Mean Corpuscular Volume 94.9 fl (85-98); Nucleated Red Blood Cells % 0 %; Platelet Count 189 10^3/cmm (157-399); Red Blood Count 2.77 10^6/uL (3.85-5.65); White Blood Count 9.50 10^3/uL (3.29-11.43)
--- NOTE | 2025-08-06 15:45 | ECG_ITS ---
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
--- NOTE | 2025-08-06 15:47 | ED_ITS ---
HPI - Weakness 2 General: Chief complaint: Weakness Stated complaint: hypotension Time Seen by Provider: 08/06/25 15:33 Source: patient and EMS Mode of arrival: EMS Limitations: no limitations History of Present Illness: 64-year-old female has a history of lung cancer she is currently on chemo states that her last treatment was on . States she has just been feeling weak feels like she is dehydrated. She denies any fevers or pain anywhere. States she has had a slight cough. She denies any vomiting or diarrhea. Related Data Home Medications ?Medication ?Instructions ?Recorded ?Confirmed metoprolol tartrate 25 mg tablet 25 mg PO BID 04/15/21 08/06/25 lisinopril 20 mg tablet 20 mg PO DAILY 02/06/2507/18 glipizide 5 mg tablet 10 mg PO BID 05/23/25 lancets 28 gauge (TRUEplus Lancets) #100 ea 07/20/25 1 10/07/24 levothyroxine 100 mcg tablet 88 mcg PO DAILY 07/20/25 08/06/25 simvastatin 20 mg tablet 20 mg PO ONCE 07/20/2508/06 Previous Rx's ?Medication ?Instructions ?Recorded albuterol sulfate 90 mcg/actuation 2 puff inhalation Q 6H PRN 05/17/25 aerosol inhaler (Ventolin HFA) Shortness Of Breath #8. 5 grams tiotropium bromide 2.5 2 puff inhalation DAILY #4 g abhay 05/17/25 mcg/actuation mist for inhalation (Spiriva Respimat) alcohol swabs 1 pad topical DIRECTED #2 00 ea 05/18/25 blood sugar diagnostic (Blood #200 ea 05/18/25 Glucose Test strips) blood-glucose meter #1 ea 05/18/25 insulin lispro 100 unit/mL 1 unit (0.01 mL) SUBCUT .CO MPLEX 05/18/25 subcutaneous pen (Humalog KwikPen Diabetes #15 mL (U-100) Insulin) lancets #200 ea 05/18/25 Dexcom G7 Transmitter device #1 ea 05/23/25 blood-glucose sensor (Dexcom G7 #1 ea 05/23/25 Sensor device) blood-glucose,intermodal dispatcher,cont #1 ea 05/23/25 (Dexcom G7 Communications Executive) dapagliflozin propanediol 10 mg 10 mg PO QAM #30 tabs 05/23/25 tablet (Farxiga) lidocaine-prilocaine 2.5 %-2.5 % 1 applic swiftQueue .KeepTrax PLEX #30 grams 05/23/25 topical cream simvastatin 40 mg tablet 40 mg PO DAILY #90 tabs 05/17 scopolamine base 1 mg over 3 days 1 patch transdermal Q3D PRN nausea 06/15/25 transdermal patch and vomiting #10 ea dexamethasone 2 mg tablet 2 mg PO BID brain mets #30 t abs 07/12/25 prochlorperazine maleate 10 mg 10 mg PO Q6H PRN nausea and 07/12/25 tablet (Compazine) vomiting #30 tabs lorazepam 0.5 mg tablet 0.5 mg PO Q6H PRN nausea and 07/17/25 vomiting #30 tabs ipratropium 0.5 mg-albuterol 3 mg 3 ml inhalation Q6H PRN wheezing 07/20/25 (2.5 mg base)/3 mL nebulization #90 mL soln mucus clearing device #1 ea 07/20/25 promethazine 25 mg tablet 25 mg PO Q6H PRN nausea and 07/27/25 vomiting #60 tabs ondansetron 8 mg disintegrating 8 mg PO Q8H PRN nausea and 07/28/25 tablet vomiting #90 tabs diazepam 10 mg tablet (Valium) 10 mg PO .COMPLEX PRN a nxiety #6 07/31/25 tabs omeprazole 40 mg capsule,delayed 40 mg PO DAILY #30 ca ps 07/31/25 release sucralfate 1 gram tablet (Carafate) 1 g PO TID #30 tab s 07/31/25 cephalexin 500 mg capsule 500 mg PO TID 7 days #21 cap s 08/06/25 hydrocodone 5 mg-acetaminophen 325 1 tab PO Q8H PRN pa in #14 tabs 08/06/25 mg tablet Allergies Allergy/AdvReac Type Severity Reaction Status Date / Time amoxicillin Allergy ALGY-Hives Verified 08/06/25 14:05 naproxen Allergy ALGY-Hives Verified 08/06/25 14:05 Review of Systems 2 Const: Reports: malaise PFSH ED 2 PFSH: Medical History Acute UTI (urinary tract infection) Port-A-Cath in place Hypertension Surgical History Hx of section x2 Hx of tubal ligation Hx laparoscopic cholecystectomy History of open heart surgery age 5 History of lumpectomy of left breast Hx of tonsillectomy Family History Grandmother Small cell lung cancer Grandfather Lung cancer Mother Small cell lung cancer Social History Smoking and tobacco/nicotine status: former use of tobacco/nicotine Physical Exam 2 Const: COMMON NORMALS: patient oriented x3 HENMT: COMMON NORMALS: normocephalic and atraumatic HEAD & SCALP: n ormocephalic and atraumatic Eye: COMMON NORMALS: Equal, round and reactive pupils present and EOMs intact bilaterally PUPIL: Yes Equal, round and reactive pupils present Neck/C-Spine: COMMON NORMALS: full ROM and supple Chest: COMMONS NORMALS: normal inspection of the chest and normal palpation of entire chest wall Resp: COMMON NORMALS: normal respiratory effort, No retractions, No use of accessory muscles and clear to auscultation bilaterally AUSCULTATION: clear to auscultation bilaterally Cardio: COMMON NORMALS: regular rate, regular rhythm and No murmurs present (Cardio) RATE: regular rate RHYTHM: regular rhythm GI: COMMON NORMALS: Normal to inspection, nondistended, normoactive bowel sounds present, Soft to palpation, non-tender and no masses PALPATION: Yes Soft to palpation Extremity: COMMON NORMALS: normal to inspection and full ROM Neuro: COMMON NORMALS: patient oriented x3, moves all extremities and no focal motor deficits Psych: COMMON NORMALS: mental status grossly normal, Normal thought process present and cooperative THOUGHT PROCESS: Normal thought process present Skin: COMMON NORMALS: no rashes or lesions noted and no wounds GENERAL SKIN EXAM: no rashes or lesions noted Course 2 Vital Signs: Vital signs: Vital Signs Temperature 98.6 F 08/06/25 15:23 Pulse Rate 107 H 08/06/25 17:22 Respiratory Rate 17 08/06/25 17:22 Blood Pressure 99/81 08/06/25 17:22 Pulse Oximetry 95 08/06/25 17:22 Oxygen Delivery Me thod Room Air 08/06/25 16:30 Oxygen Flow Rate 3 08/06/25 15:23 MDM - Weakness Medical Decision Making 64-year-old female presents with generalized weakness differential includes dehydration, infection, sepsis. Patient's vitals here been stable white count was normal no signs of septic blood work showed no significant abnormalities does have a UTI she does feel improved after IV fluids did give her IV Rocephin as well will prescribe her Keflex she is to follow-up with her PCP return if worsening she understands agrees to plan. EKG interpreted by me at 1608 normal sinus rhythm heart rate [address] elevation QRS 102 QTc 407 Medical Records I reviewed the patient's medical records. Lab Data I reviewed the patient's lab results. 08/06/25 15:32 08/06/25 15:32 Radiology Impressions Chest X-Ray 08/06/25 15:34 IMPRESSION: 1. No acute infiltrate. 2. Right pulmonary mass further decrease in size. Laboratory Results WBC 9.50 10^3/uL (3.29-11.43) 08/06/25 15:32 RBC 2.77 10^6/uL (3.85-5.65) L 08/06/25 15:32 Hgb 8.40 g/dL (11.27-16.99) L 08/06/25 15:32 Hct 26.3 % (36-47) L 08/06/25 15:32 MCV 94.9 fl (85-98) 08/06/25 15:32 MCH 30.3 pg (27-33) 08/06/25 15:32 MCHC 31.9 g/dL (30-55) 08/06/25 15:32 RDW 17.4 % (12.1-15.1) H 08/06/25 15:32 Plt Count 189 10^3/cmm (157-399) 08/06/25 15:32 MPV 10.1 fL (7.4-10.4) 08/06/25 15:32 Neut % (Auto) 83.7 % 08/06/25 15:32 Lymph % (Auto) 6.2 % 08/06/25 15:32 Daniels % (Auto) 0.7 % 08/06/25 15:32 Eos % (Auto) 0.1 % 08/06/25 15:32 Baso % (Auto) 0.2 % 08/06/25 15:32 Neut # (Auto) 7.95 10^3/uL (1.8-7.7) H 08/06/25 15:32 Lymph # (Auto) 0.6 10^3/uL (0.8-4.8) L 08/06/25 15:32 Daniels # (Auto) 0.1 10^3/uL (0.2-0.9) L 08/06/25 15:32 Eos # (Auto) 0.0 10^3/uL (0.0-0.8) 08/06/25 15: Baso # (Auto) 0.0 10^3/uL (0.0-0.1) 08/06/25 15:32 Nucleated RBC % (auto) 0 % 08/06/25 15:32 Nucleated RBCs # 0.0 /100WBC 08/06/25 15:32 Sodium 133 mmol/L (136-145) L 08/06/25 15:32 Potassium 4.2 mmol/L (3.5-5.1) 08/06/25 15:32 Chloride 97 mmol/L (98-107) L 08/06/25 15:32 Carbon Dioxide 21 mmol/L (22-29) L 08/06/25 15:32 Anion Gap 19.2 (5-19) H 08/06/25 15:32 BUN 25 mg/dL (8-23) H 08/06/25 15:32 Creatinine 1.0 mg/dL (0.5-0.9) H 08/06/25 15:32 GFR Calculation 56.0 mL/min (90-130) L 08/06/25 15:32 Glucose 289 mg/dL (65-115) H 08/06/25 15:32 Calculated Osmolality 291 mOsm/kg (285-295) 08/06/25 15:32 Lactic Acid 1.1 mmol/L (0.5-2.2) 08/06/25 15:32 Calcium 8.7 mg/dL (8.5-10.5) 08/06/25 15:32 Total Bilirubin 0.7 mg/dL (0.15-1.2) 08/06/25 15:32 AST 17 U/L (0-32) 08/06/25 15:32 ALT 15 U/L (0-33) 08/06/25 15:32 Alkaline Phosphatase 120 U/L (35-105) H 08/06/25 15:32 Total Protein 6.4 g/dL (6.6-8.7) L 08/06/25 15:32 Albumin 3.8 g/dL (3.5-5.2) 08/06/25 15:32 Globulin 2.6 g/dL (1.3-4.6) 08/06/25 15:32 Urine Color [place] (Yellow) A 08/06/25 16:27 Urine Appearance Turbid (CLEAR) A 08/06/25 16: Urine pH 5.0 (5-7) 08/06/25 16: Ur Specific [place] 1.030 (1.005-1.030) 08/06/25 16: Urine Protein 1+ (Negative) A 08/06/25 16: Urine Glucose (UA) 3+ (Normal) H 08/06/25 16: Urine Ketones 1+ (Negative) H 08/06/25 16:27 Urine Blood 2+ (Negative) A 08/06/25 16: Urine Nitrate Negative (Negative) 08/06/25 16: Urine Bilirubin Negative (Negative) 08/06/25 16: Urine Urobilinogen 1.0 mg/dL (Negative) 08/06/25 16:27 Ur Leukocyte Esterase 1+ (Negative) A 08/06/25 16:27 Urine RBC 3-5 /hpf (0-2) 08/06/25 16:27 Urine WBC >100 /hpf (0-5) H 08/06/25 16:27 Ur Squamous Epith Cells 0-5 /hpf (0-5) 08/06/25 16:27 Amorphous Sediment Not Reportable 08/06/25 16: Urine Bacteria 1+ /hpf (NONE) H 08/06/25 16: Hyaline Casts 13.63 /lpf 08/06/25 16:27 All radiology interpretation(s) finalized by discharge Discharge Plan Discharge Patient Disposition: Home Clinical Impression: Acute UTI (urinary tract infection) Condition: Stable Prescriptions: New cephalexin 500 mg capsule 500 mg PO TID 7 Days Qty: 21 0RF hydrocodone-acetaminophen 5-325 mg tablet 1 tab PO Q8H PRN (Reason: pain) Qty: 14 0RF No Action metoprolol tartrate 25 mg tablet 25 mg PO BID (DME) Dexcom G7 Sensor Device See Rx Instructions .MEDSUPPLY Qty: 1 2RF Rx Instructions: As directed (DME) Dexcom G7 Communications Executive Misc See Rx Instructions miscellaneous .MEDSUPPLY Qty: 1 0RF Rx Instructions: As directed dapagliflozin propanediol [Farxiga] 10 mg tablet 10 mg PO QAM Qty: 30 2RF (DME) Dexcom G7 Transmitter device See Rx Instructions .ROUTE .MEDSUPPLY Qty: 1 2RF Rx Instructions: As directed insulin lispro [Humalog KwikPen Insulin] 100 unit/mL insulin pen 1 unit SUBCUT .COMPLEX Qty: 15 0RF Rx Instructions: Use moderate sliding scale with dosing four times daily (DME) lancets Misc See Rx Instructions .MEDSUPPLY Qty: 200 0RF Rx Instructions: Use as directed to prick skin for blood sugar checks (DME) blood-glucose meter Misc See Rx Instructions .MEDSUPPLY Qty: 1 0RF Rx Instructions: Use as directed for checking blood sugar (DME) Blood Glucose Test Strip See Rx Instructions .MEDSUPPLY Qty: 200 0RF Rx Instructions: Use as directed with glucometer to check blood sugar alcohol swabs Pads, Medicated 1 pad topical DIRECTED Qty: 200 0RF Rx Instructions: Use as directed to clean skin prior to finger stick or medication injection simvastatin 20 mg tablet 20 mg PO ONCE (DME) lancets [TRUEplus Lancets] 28 gauge misc See Rx Instructions .ROUTE .MEDSUPPLY Qty: 100 Rx Instructions: As directed levothyroxine 100 mcg tablet 88 mcg PO DAILY ipratropium-albuterol 0.5 mg-3 mg(2.5 mg base)/3 mL solution for nebulization 3 ml inhalation Q6H PRN (Reason: wheezing) Qty: 90 6RF (DME) mucus clearing device Device See Rx Instructions .MEDSUPPLY Qty: 1 0RF Rx Instructions: As directed lisinopril 20 mg tablet 20 mg PO DAILY glipizide 5 mg tablet 10 mg PO BID albuterol sulfate [Ventolin HFA] 90 mcg/actuation HFA aerosol inhaler 2 puff inhalation Q6H PRN (Reason: Shortness Of Breath) Qty: 8.5 3RF Spiriva Respimat 2.5 mcg/actuation mist 2 puff inhalation DAILY Qty: 4 3RF sucralfate [Carafate] 1 gram tablet 1 g PO TID Qty: 30 0RF diazepam [Valium] 10 mg tablet 10 mg PO .COMPLEX PRN (Reason: anxiety) Qty: 6 0RF Rx Instructions: 10 mg orally PRN prior to test omeprazole 40 mg capsule,delayed release(DR/EC) 40 mg PO DAILY Qty: 30 0RF lidocaine-prilocaine 2.5-2.5 % cream 1 applic topical .COMPLEX Qty: 30 2RF Rx Instructions: Apply quarter-size amount to port site 30 minutes prior to access; cover with cling wrap simvastatin 40 mg tablet 40 mg PO DAILY Qty: 90 1RF scopolamine base 1 mg over 3 days patch 3 day 1 patch transdermal Q3D PRN (Reason: nausea and vomiting) Qty: 10 0RF Rx Instructions: place behind ear every 3 days as need prochlorperazine maleate [Compazine] 10 mg tablet 10 mg PO Q6H PRN (Reason: nausea and vomiting) Qty: 30 3RF Rx Instructions: DO NOT TAKE DIRECTLY WITH ONDANESTRON AND MUST STOP SCOPALOMINE PATCH PRIOR TO USE may alternate with lorazepam (take one medication-example: Compazine-and then in 3 hours may try lorazepam and then repeat Compazine 3 hours after the lorazepam so still takes each agent every 6 hours. dexamethasone 2 mg tablet 2 mg PO BID Qty: 30 0RF lorazepam 0.5 mg tablet 0.5 mg PO Q6H PRN (Reason: nausea and vomiting) Qty: 30 1RF Rx Instructions: 1/2 to 2 tablets oral or sublingual every 6 hours promethazine 25 mg tablet 25 mg PO Q6H PRN (Reason: nausea and vomiting) Qty: 60 3RF ondansetron 8 mg tablet,disintegrating 8 mg PO Q8H PRN (Reason: nausea and vomiting) Qty: 90 6RF Discharge Orders: Discharge ED (Routine); Ordered 08/06/25 Ordered By: Jimi Swain Referrals: Jose Alfredo Bhatti MD [Primary Care Provider, Family Practice] - 4-7 days Discharge Diet: Advance as tolerated Discharge Activity: Resume usual activity Patient Instructions: Urinary Tract Infection in Women (ED) Print Language: Marshallese Coding Level of Care Code ED Messaging Architect for Mark Pepe
[2025-08-06 15:58] LABS: Alanine Aminotransferase 15 U/L (0-33); Albumin Level 3.8 g/dL (3.5-5.2); Alkaline Phosphatase 120 U/L (35-105); Anion Gap 19.2 (5-19); Aspartate Amino Transferase 17 U/L (0-32); Blood Urea Nitrogen 25 mg/dL (8-23); Calcium 8.7 mg/dL (8.5-10.5); Carbon Dioxide 21 mmol/L (22-29); Chloride 97 mmol/L (98-107); Globulin 2.6 g/dL (1.3-4.6); Glucose 289 mg/dL (65-115); Lactic Sepsis W/Reflex 1.1 mmol/L (0.5-2.2); Osmolality Calculated 291 mOsm/kg (285-295); Potassium 4.2 mmol/L (3.5-5.1); Sodium 133 mmol/L (136-145); Total Protein 6.4 g/dL (6.6-8.7)
[2025-08-06 16:25] VITALS: BP 94/56; O2SAT 97
[2025-08-06 16:30] VITALS: BP 107/50; PULSE 92; RESP 16; O2SAT 96
[2025-08-06 16:34] LABS: Glucose Urine UA 3+ (Normal); Nitrate Urine Negative (Negative); Specific Gravity, Urine 1.030 (1.005-1.030)
[2025-08-06 16:39] LABS: Add Urine Microscopic? YES
[2025-08-06] MEDS: cefTRIAXone 1,000 mg SDV 1000 MG IVP (17:09)
[2025-08-06] MEDS: HYDROcodone-acetaminophen 5-325 mg Tablet 1 TAB PO (17:16)
[2025-08-06 17:22] VITALS: BP 99/81; PULSE 107; RESP 17; O2SAT 95
== END 2025-08-06 17:23 | disposition home or self-care (01) ==
PROVIDERS: Emergency Provider Emergency Medicine; PCP Family Medicine
DX: N39.0 Urinary tract infection, site not specified (principal); Z79.4 Long term (current) use of insulin; Z87.891 Personal history of nicotine dependence; I10 Essential (primary) hypertension; Z85.118 Personal history of other malignant neoplasm of bronchus and lung
CPT/HCPCS: 71045; 80053; 81001; 83605; 85025; 87040; 93005; 96361; 96374; 99285; J0696; J7030; J9999

== ENCOUNTER 2025-08-08 18:24 | Inpatient (IN) | payer MEDICAID, SELFPAY ==
[2025-08-08 18:29] VITALS: BP 112/76; PULSE 109; RESP 18; TEMP 37.1; O2SAT 97; BMI 26.7
--- NOTE | 2025-08-08 19:02 | XRR_ITS ---
PROCEDURE INFORMATION: Exam: XR Chest Exam date and time: 08/08/2025 7:18 PM Age: 64 years old Clinical indication: Cough and dyspnea; Prior surgery; Surgery date: 6+ months; Surgery type: Port bronch; Additional info: Dyspnea/cough TECHNIQUE: Imaging protocol: Radiologic exam of the chest. Views: 1 view. COMPARISON: CR (CHEST, ) 08/06/2025 3:43 PM FINDINGS: Tubes, catheters and devices: Right chest wall infusion port in place. Lungs: No infiltrates. No suspicious masses or nodules. Pleural spaces: No pleural effusions or pneumothorax. Heart/Mediastinum: Heart size within normal limits. No pulmonary vascular congestion. Bones/joints: No significant osseous lesion. No fractures. XR/XR chest 1V portable [id number] IMPRESSION: No acute cardiopulmonary findings radiographically.
[2025-08-08 19:08] VITALS: BP 115/79; PULSE 106; RESP 16; O2SAT 95
--- NOTE | 2025-08-08 19:13 | ED_ITS ---
HPI - Nausea/Vomiting/Diarrhea General: Chief complaint: Nausea/Vomiting/Diarrhea Stated complaint: Weakness x5 days Time Seen by Provider: 08/08/25 18:25 History of Present Illness: 61-year-old female presents to the [facility] ency room with complaints of nausea and vomiting for the last 5 days. She just finished her last round of chemo on 1217 and since then has had protracted nausea and vomiting. She was seen 2 days ago and treated for a cystitis. Blood cultures from that visit thus far have been negative. She generally is not feeling well she has had nausea and vomiting she also had a productive cough. Associated symtoms: Denies chest pain or dysuria Related Data Home Medications ?Medication ?Instructions ?Recorded ?Confirmed metoprolol tartrate 25 mg tablet 25 mg PO BID 04/15/21 08/06/25 lisinopril 20 mg tablet 20 mg PO DAILY 02/06/2507/18 glipizide 5 mg tablet 10 mg PO BID 05/23/25 lancets 28 gauge (TRUEplus Lancets) #100 ea 07/20/25 1 10/07/24 levothyroxine 100 mcg tablet 88 mcg PO DAILY 07/20/25 08/06/25 simvastatin 20 mg tablet 20 mg PO ONCE 07/20/2508/06 Previous Rx's ?Medication ?Instructions ?Recorded albuterol sulfate 90 mcg/actuation 2 puff inhalation Q 6H PRN 05/17/25 aerosol inhaler (Ventolin HFA) Shortness Of Breath #8. 5 grams tiotropium bromide 2.5 2 puff inhalation DAILY #4 g abhay 05/17/25 mcg/actuation mist for inhalation (Spiriva Respimat) alcohol swabs 1 pad topical DIRECTED #2 00 ea 05/18/25 blood sugar diagnostic (Blood #200 ea 05/18/25 Glucose Test strips) blood-glucose meter #1 ea 05/18/25 insulin lispro 100 unit/mL 1 unit (0.01 mL) SUBCUT .CO MPLEX 05/18/25 subcutaneous pen (Humalog KwikPen Diabetes #15 mL (U-100) Insulin) lancets #200 ea 05/18/25 Dexcom G7 Transmitter device #1 ea 05/23/25 blood-glucose sensor (Dexcom G7 #1 ea 10/07/25 Sensor device) blood-glucose,channeler insole,cont #1 ea 05/23/25 (Dexcom G7 Machine Filler) dapagliflozin propanediol 10 mg 10 mg PO QAM #30 tabs 05/23/25 tablet (Farxiga) lidocaine-prilocaine 2.5 %-2.5 % 1 applic topical .[employer]Near[employer] PLEX #30 grams 05/23/25 topical cream simvastatin 40 mg tablet 40 mg PO DAILY #90 tabs 05/17 scopolamine base 1 mg over 3 days 1 patch transdermal Q3D PRN nausea 06/15/25 transdermal patch and vomiting #10 ea dexamethasone 2 mg tablet 2 mg PO BID brain mets #30 t abs 07/12/25 prochlorperazine maleate 10 mg 10 mg PO Q6H PRN nausea and 07/12/25 tablet (Compazine) vomiting #30 tabs lorazepam 0.5 mg tablet 0.5 mg PO Q6H PRN nausea and 07/17/25 vomiting #30 tabs ipratropium 0.5 mg-albuterol 3 mg 3 ml inhalation Q6H PRN wheezing 07/20/25 (2.5 mg base)/3 mL nebulization #90 mL soln mucus clearing device #1 ea 07/20/25 promethazine 25 mg tablet 25 mg PO Q6H PRN nausea and 07/27/25 vomiting #60 tabs ondansetron 8 mg disintegrating 8 mg PO Q8H PRN nausea and 07/28/25 tablet vomiting #90 tabs diazepam 10 mg tablet (Valium) 10 mg PO .COMPLEX PRN a nxiety #6 07/31/25 tabs omeprazole 40 mg capsule,delayed 40 mg PO DAILY #30 ca ps 07/31/25 release sucralfate 1 gram tablet (Carafate) 1 g PO TID #30 tab s 07/31/25 cephalexin 500 mg capsule 500 mg PO TID 7 days #21 cap s 08/06/25 hydrocodone 5 mg-acetaminophen 325 1 tab PO Q8H PRN pa in #14 tabs 08/06/25 mg tablet Allergies Allergy/AdvReac Type Severity Reaction Status Date / Time amoxicillin Allergy ALGY-Hives Verified 08/06/25 14:05 naproxen Allergy ALGY-Hives Verified 08/06/25 14:05 Review of Systems Const: Denies: fever(s) or chills Card: Denies: chest pain Resp: Denies: dyspnea GI: Denies: abdominal pain : Denies: dysuria, urinary frequency or urinary urgency Musc: Denies: neck pain or back pain Skin/Breast: Denies: rash PFSH ED PFSH: Medical History Acute UTI (urinary tract infection) Port-A-Cath in place Hypertension Surgical History Hx of section x2 Hx of tubal ligation Hx laparoscopic cholecystectomy History of open heart surgery age 5 History of lumpectomy of left breast Hx of tonsillectomy Family History Grandmother Small cell lung cancer Grandfather Lung cancer Mother Small cell lung cancer Social History Smoking and tobacco/nicotine status: former use of tobacco/nicotine Physical Exam Const: GENERAL APPEARANCE: cooperative ORIENTATION/CONSCIOUSNESS: Yes awake, Yes oriented to person, Yes oriented to place and Yes oriented to time HENMT: COMMON NORMALS: normocephalic and atraumatic HEAD & SCALP: normocephalic and atraumatic Resp: COMMON NORMALS: normal respiratory effort, No retractions, No use of accessory muscles and clear to auscultation bilaterally AUSCULTATION: clear to auscultation bilaterally Cardio: COMMON NORMALS: regular rate, regular rhythm and No murmurs present (Cardio) RATE: regular rate RHYTHM: regular rhythm GI: COMMON NORMALS: Soft to palpation and No hepatosplenomegaly present AUSCULTATION: Yes normoactive bowel sounds PALPATION: Yes Soft to palpation, No Tenderness to palpation present (GI), No Guarding due to palpation present (GI) and Yes No hepatosplenomegaly present Extremity: COMMON NORMALS: normal to inspection, capillary refill normal, no clubbing, cyanosis or edema, no calf tenderness and no pedal edema Neuro: SENSORIUM/ORIENTATION: Yes oriented to person, Yes oriented to place and Yes oriented to time Skin: COMMON NORMALS: no rashes or lesions noted GENERAL SKIN EXAM: no rashes or lesions noted Course Vital Signs: Vital signs: Vital Signs Temperature 98.7 F 08/08/25 18:29 Pulse Rate 106 H 08/08/25 19:08 Respiratory Rate 16 08/08/25 19:08 Blood Pressure 115/79 08/08/25 19:08 Pulse Oximetry 95 08/08/25 19:08 Oxygen Delivery Me thod Room Air 08/08/25 18:29 MDM - Nausea/Vomiting/Diarrhea Medical Decision Making Medical decision making Social determinants: [] I reviewed the patient's medical record. I reviewed the patient's current home meds. Alternate historians: [] Differential diagnosis:[] Lab Review: [] Imaging:[] Assessment of risk Level of risk: [] Hospitalization considerations: [] Reexamination:[] Assessment and plan:[] Discharge Plan Discharge Condition: Stable Prescriptions: No Action metoprolol tartrate 25 mg tablet 25 mg PO BID (DME) Dexcom G7 Sensor Device See Rx Instructions .MEDSUPPLY Qty: 1 2RF Rx Instructions: As directed (DME) Dexcom G7 Machine Filler Misc See Rx Instructions miscellaneous .MEDSUPPLY Qty: 1 0RF Rx Instructions: As directed dapagliflozin propanediol [Farxiga] 10 mg tablet 10 mg PO QAM Qty: 30 2RF (DME) Dexcom G7 Transmitter device See Rx Instructions .ROUTE .MEDSUPPLY Qty: 1 2RF Rx Instructions: As directed insulin lispro [Humalog KwikPen Insulin] 100 unit/mL insulin pen 1 unit SUBCUT .COMPLEX Qty: 15 0RF Rx Instructions: Use moderate sliding scale with dosing four times daily (DME) lancets Misc See Rx Instructions .MEDSUPPLY Qty: 200 0RF Rx Instructions: Use as directed to prick skin for blood sugar checks (DME) blood-glucose meter Misc See Rx Instructions .MEDSUPPLY Qty: 1 0RF Rx Instructions: Use as directed for checking blood sugar (DME) Blood Glucose Test Strip See Rx Instructions .MEDSUPPLY Qty: 200 0RF Rx Instructions: Use as directed with glucometer to check blood sugar alcohol swabs Pads, Medicated 1 pad topical DIRECTED Qty: 200 0RF Rx Instructions: Use as directed to clean skin prior to finger stick or medication injection simvastatin 20 mg tablet 20 mg PO ONCE (DME) lancets [TRUEplus Lancets] 28 gauge misc See Rx Instructions .ROUTE .MEDSUPPLY Qty: 100 Rx Instructions: As directed levothyroxine 100 mcg tablet 88 mcg PO DAILY ipratropium-albuterol 0.5 mg-3 mg(2.5 mg base)/3 mL solution for nebulization 3 ml inhalation Q6H PRN (Reason: wheezing) Qty: 90 6RF (DME) mucus clearing device Device See Rx Instructions .MEDSUPPLY Qty: 1 0RF Rx Instructions: As directed lisinopril 20 mg tablet 20 mg PO DAILY glipizide 5 mg tablet 10 mg PO BID albuterol sulfate [Ventolin HFA] 90 mcg/actuation HFA aerosol inhaler 2 puff inhalation Q6H PRN (Reason: Shortness Of Breath) Qty: 8.5 3RF Spiriva Respimat 2.5 mcg/actuation mist 2 puff inhalation DAILY Qty: 4 3RF sucralfate [Carafate] 1 gram tablet 1 g PO TID Qty: 30 0RF diazepam [Valium] 10 mg tablet 10 mg PO .COMPLEX PRN (Reason: anxiety) Qty: 6 0RF Rx Instructions: 10 mg orally PRN prior to test omeprazole 40 mg capsule,delayed release(DR/EC) 40 mg PO DAILY Qty: 30 0RF lidocaine-prilocaine 2.5-2.5 % cream 1 applic topical .COMPLEX Qty: 30 2RF Rx Instructions: Apply quarter-size amount to port site 30 minutes prior to access; cover with cling wrap simvastatin 40 mg tablet 40 mg PO DAILY Qty: 90 1RF scopolamine base 1 mg over 3 days patch 3 day 1 patch transdermal Q3D PRN (Reason: nausea and vomiting) Qty: 10 0RF Rx Instructions: place behind ear every 3 days as need prochlorperazine maleate [Compazine] 10 mg tablet 10 mg PO Q6H PRN (Reason: nausea and vomiting) Qty: 30 3RF Rx Instructions: DO NOT TAKE DIRECTLY WITH ONDANESTRON AND MUST STOP SCOPALOMINE PATCH PRIOR TO USE may alternate with lorazepam (take one medication-example: Compazine-and then in 3 hours may try lorazepam and then repeat Compazine 3 hours after the lorazepam so still takes each agent every 6 hours. dexamethasone 2 mg tablet 2 mg PO BID Qty: 30 0RF lorazepam 0.5 mg tablet 0.5 mg PO Q6H PRN (Reason: nausea and vomiting) Qty: 30 1RF Rx Instructions: 1/2 to 2 tablets oral or sublingual every 6 hours promethazine 25 mg tablet 25 mg PO Q6H PRN (Reason: nausea and vomiting) Qty: 60 3RF ondansetron 8 mg tablet,disintegrating 8 mg PO Q8H PRN (Reason: nausea and vomiting) Qty: 90 6RF cephalexin 500 mg capsule 500 mg PO TID 7 Days Qty: 21 0RF hydrocodone-acetaminophen 5-325 mg tablet 1 tab PO Q8H PRN (Reason: pain) Qty: 14 0RF Referrals: Jose Alfredo Bhatti MD [Primary Care Provider, Family Practice] Print Language: Vietnamese Coding Level of Care Code ED Telephone Operator for Mark Pepe
[2025-08-08 19:19] LABS: Mean Corpuscular HGB Conc 31.9 g/dL (30-55); Mean Corpuscular Hemoglobin 30.5 pg (27-33); Mean Corpuscular Volume 95.8 fl (85-98); Nucleated Red Blood Cells % 0 %; Platelet Count 104 10^3/cmm (157-399); Red Blood Count 2.13 10^6/uL (3.85-5.65); White Blood Count 1.25 10^3/uL (3.29-11.43)
[2025-08-08 19:30] LABS: Slide Review Slide Review Perform
[2025-08-08 19:31] LABS: Hematocrit 20.4 % (36-47); Hemoglobin 6.50 g/dL (11.27-16.99)
[2025-08-08 19:36] LABS: Alanine Aminotransferase 11 U/L (0-33); Albumin Level 3.7 g/dL (3.5-5.2); Alkaline Phosphatase 93 U/L (35-105); Anion Gap 17.2 (5-19); Aspartate Amino Transferase 14 U/L (0-32); Blood Urea Nitrogen 17 mg/dL (8-23); Calcium 8.8 mg/dL (8.5-10.5); Carbon Dioxide 21 mmol/L (22-29); Chloride 101 mmol/L (98-107); Globulin 2.6 g/dL (1.3-4.6); Glucose 154 mg/dL (65-115); Lipase 33 U/L (13-60); Osmolality Calculated 285 mOsm/kg (285-295); Potassium 4.2 mmol/L (3.5-5.1); Sodium 135 mmol/L (136-145); Total Protein 6.3 g/dL (6.6-8.7)
[2025-08-08] MEDS: ondansetron 2 mg/ML SDV 2 mL 4 MG IVP (19:45)
[2025-08-08] MEDS: cefTAZidime 2,000 mg SDV 2000 MG IVP (20:31)
--- NOTE | 2025-08-08 21:06 | P.HP_ITS ---
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 Daughter who is her babysitter is present and aids in history gathering as patient is very hard of hearing. In addition to her lethargy, there are various other symptoms including a deviating gait, reports of vertigo, nausea, vomiting, and nose bleeds. No other bleeding to note off. I am told her last chemotherapy session was last . There have also been reports of chills but no fevers, bilateral lower extremity discomfort, cough, and recent diarrhea which has improved are imodium. No report of rashes or swelling. Medications/Allergies Home Medications ?Medication ?Instructions ?Recorded ?Confirmed ?Last Taken ?Type metoprolol tartrate 25 mg tablet 25 mg PO BID 04/15/21 08/06/25 05/16/25 History lisinopril 20 mg tablet 20 mg PO DAILY 02/06/25/09/1005/15/25 History albuterol sulfate 90 mcg/actuation 2 puff inhalation Q 6H PRN 05/17/25 08/06/25 Unknown Rx aerosol inhaler (Ventolin HFA) Shortness Of Breath #8. 5 grams tiotropium bromide 2.5 2 puff inhalation DAILY #4 g abhay 05/17/25 08/06/25 Unknown Rx mcg/actuation mist for inhalation (Spiriva Respimat) alcohol swabs 1 pad topical DIRECTED #2 00 ea 05/18/25 08/06/25 Unknown Rx blood sugar diagnostic (Blood #200 ea 05/18/25 5 Unknown Rx Glucose Test strips) blood-glucose meter #1 ea 05/18/25 08/06/25 Unkn own Rx insulin lispro 100 unit/mL 1 unit (0.01 mL) SUBCUT .CO MPLEX 05/18/25 08/06/25 Unknown Rx subcutaneous pen (Humalog KwikPen Diabetes #15 mL (U-100) Insulin) lancets #200 ea 05/18/25 08/06/25 Un known Rx Dexcom G7 Transmitter device #1 ea 05/23/25 08/06/25 U nknown Rx blood-glucose sensor (Dexcom G7 #1 ea 05/23/25 5 Unknown Rx Sensor device) blood-glucose,software quality test engineer,cont #1 ea 05/23/25 08/06/25 Un known Rx (Dexcom G7 Computer Operations Supervisor) dapagliflozin propanediol 10 mg 10 mg PO QAM #30 tabs 05/23/25 08/06/25 Unknown Rx tablet (Farxiga) glipizide 5 mg tablet 10 mg PO BID 05/23/25 Unknown History lidocaine-prilocaine 2.5 %-2.5 % 1 applic topical .[employer] PLEX #30 grams 05/23/25 08/06/25 Unknown Rx topical cream simvastatin 40 mg tablet 40 mg PO DAILY #90 tabs 05/1708/06/25 Unknown Rx scopolamine base 1 mg over 3 days 1 patch transdermal Q3D PRN nausea 06/15/25 08/06/25 Unknown Rx transdermal patch and vomiting #10 ea dexamethasone 2 mg tablet 2 mg PO BID brain mets #30 t abs 07/12/25 08/06/25 Unknown Rx prochlorperazine maleate 10 mg 10 mg PO Q6H PRN nausea and 07/12/25 08/06/25 Unknown Rx tablet (Compazine) vomiting #30 tabs lorazepam 0.5 mg tablet 0.5 mg PO Q6H PRN nausea and 07/17/25 08/06/25 Unknown Rx vomiting #30 tabs ipratropium 0.5 mg-albuterol 3 mg 3 ml inhalation Q6H PRN wheezing 07/20/25 08/06/25 Unknown Rx (2.5 mg base)/3 mL nebulization #90 mL soln lancets 28 gauge (TRUEplus Lancets) #100 ea 07/20/25 1 10/07/24 Unknown History levothyroxine 100 mcg tablet 88 mcg PO DAILY 07/20/25 08/06/25 Unknown History mucus clearing device #1 ea 07/20/25 08/06/25 Unkn own Rx simvastatin 20 mg tablet 20 mg PO ONCE 07/20/2508/06 Unknown History promethazine 25 mg tablet 25 mg PO Q6H PRN nausea and 07/27/25 08/06/25 Unknown Rx vomiting #60 tabs ondansetron 8 mg disintegrating 8 mg PO Q8H PRN nausea and 07/28/25 08/06/25 Unknown Rx tablet vomiting #90 tabs diazepam 10 mg tablet (Valium) 10 mg PO .COMPLEX PRN a nxiety #6 07/31/25 08/06/25 Unknown Rx tabs omeprazole 40 mg capsule,delayed 40 mg PO DAILY #30 ca ps 07/31/25 08/06/25 Unknown Rx release sucralfate 1 gram tablet (Carafate) 1 g PO TID #30 tab s 07/31/25 08/06/25 Unknown Rx cephalexin 500 mg capsule 500 mg PO TID 7 days #21 cap s 08/06/25 Unknown Rx hydrocodone 5 mg-acetaminophen 325 1 tab PO Q8H PRN pa in #14 tabs 08/06/25 Unknown Rx mg tablet Allergies Allergy/AdvReac Type Severity Reaction Status Date / Time amoxicillin Allergy ALGY-Hives Verified 08/06/25 14:05 naproxen Allergy ALGY-Hives Verified 08/06/25 14:05 PFSH Acute 2 PFSH: Medical History (Updated 08/08/25 @ 22:51 by Rafi Hernandez MD) Acute UTI (urinary tract infection) Port-A-Cath in place Hypertension Surgical History Hx of section x2 Hx of tubal ligation Hx laparoscopic cholecystectomy History of open heart surgery age 5 History of lumpectomy of left breast Hx of tonsillectomy Family History Grandmother Small cell lung cancer Grandfather Lung cancer Mother Small cell lung cancer Social History Smoking and tobacco/nicotine status: former use of tobacco/nicotine Vitals/I&O/Wt Last Vital Signs Temp 98.7 F 08/08/25 18:29 Pulse 106 H 08/08/25 19:08 Resp 16 08/08/25 19:08 BP 115/79 08/08/25 19:08 Pulse Ox 95 08/08/25 19:08 O2 Del Method Room Air 08/08/25 18:29 08/08/25 08/08/25 08/08/25 06:59 14:59 22:59 Intake Total 200 / 200 Balance 200 / 200 Weight last 48 hrs Weight 62.142 kg Physical Exam 2 Const: COMMON NORMALS: patient oriented x3 and alert HENMT: OTHER: KLETSEL DEHE [place] Resp: COMMON NORMALS: normal respiratory effort and clear to auscultation bilaterally OTHER: Notable cough with sputum production Cardio: COMMON NORMALS: regular rate, regular rhythm, S1 normal heart sound present, S2 normal heart sound present, No gallops present (Cardio), No clicks present (Cardio), No murmurs present (Cardio) and No rub (Cardio) Extremity: OTHER: No lower extremity edema Neuro: COMMON NORMALS: patient oriented x3 and CN's II-XII intact bilaterally Skin: OTHER: No overt rashes Data 08/08/25 19:07 08/08/25 19:07 Micro: Microbiology 08/08/25 19:09 Blood Culture - Preliminary Blood SPECIMEN COLLECTED 08/08/25 19:07 Blood Culture - Preliminary Blood SPECIMEN COLLECTED A&P Assessment and plan 1. Anemia, unspecified type: - Likely related to her recent chemotherapy - 1u PRBC order by ED and pending administration - Occult stool ordered - Doubt her recent nosebleeds has caused this degree of anemia - Check iron studies - Recheck CBC in the AM 2. Neutropenia: - Moderate neutropenia with ANC of 900 - Providing empiric antibiotics with Ceftazidime - Recheck CBC in the AM - Consider hematology-oncology consult. May need G-CSF 3. Acute UTI (urinary tract infection): - Recent urine specimen collected in our ED. Follow up cultures. On Ceftazidime otherwise 4. Nausea and vomiting, unspecified vomiting type: - Supportive care with antiemetics. IVF if needed 5. COPD (chronic obstructive pulmonary disease): - Suspect exacerbation with her frequent coughing and now sputum production - Add Azithromycin for atypical coverage - Steroid in the form of prednisone 40mg daily(instead of her dexamethasone) - PRN breathing treatments - Check sputum culture 6. Type 2 diabetes mellitus: - Hold oral antidiabetic medications(Farxiga okay) - Place on SSi Plan: Continue her other home medications for her chronic conditions PDMP PDMP Reviewed: Not Reviewed Attestations 2 Medical Necessity Statement*: Patient is predicted to need less than 2 midnights for treatment of her neutropenia Coding Level of Care Code Acute Code for Chg Fwd Diagnoses Anemia, unspecified type D64.9 Anemia type: unspecified type Neutropenia D70.9 Acute UTI (urinary tract infection) N39.0 Nausea and vomiting, unspecified vomiting type R11.2 Vomiting type: unspecified COPD (chronic obstructive pulmonary disease) J44.9 Type 2 diabetes mellitus E11.9
[2025-08-08 21:08] LABS: Respiratory Syncytial Virus Ce NEGATIVE (Negative); SARS-CoV-2 PCR NEGATIVE (Negative)
[2025-08-08 21:56] VITALS: BP 99/66; PULSE 107; RESP 18; TEMP 36.9; O2SAT 99
[2025-08-08 22:14] VITALS: BP 105/72; PULSE 105; RESP 18; TEMP 37; O2SAT 98
[2025-08-08 22:29] VITALS: BP 137/79; PULSE 104; RESP 18; TEMP 37; O2SAT 98
[2025-08-08 23:29] VITALS: BP 107/66; PULSE 101; RESP 16; TEMP 37.4; O2SAT 98
[2025-08-09] VITALS (20 sets, daily range): BP systolic 97–149; BP diastolic 45–78; PULSE 61–89; RESP 13–18; TEMP 36.3–37.7; O2SAT 92–100
--- NOTE | 2025-08-09 01:11 | PC.NURSE ---
Around 2144, pt received blood for anemia and low h&h levels. TAR vitals consisted of a temp of 98.4, 98.6, 99.3, 100.0. All other vitals stayed within range of each other. Infusion stopped and Dr. Hernandez notified in case of a transfusion reaction. Pt was experiencing no other symptoms at the time other than nausea and diarrhea, which she was having before she can up to the floor. Dr. Hernandez said pt has complained of nausea for a while so not thinking its related. But could be transfusion reaction or neutropenic fever with an unclear source. asked me to not restart transfusion and send blood back to blood bank and said he ordered more labs to be taken. Pt was given tylenol for the fever and it came down to 99.1 30 minutes afterwards. Pt experiencing no symptoms still. Pt voices no concerns other than requesting an antidiarrheal. Waiting to get a stool sample to test for c-diff before giving Imodium. Bed locked, lowest position, SR up x2, call light and belongings in reach.
[2025-08-09 01:12] LABS: Mean Corpuscular HGB Conc 31.8 g/dL (30-55); Mean Corpuscular Hemoglobin 30.2 pg (27-33); Mean Corpuscular Volume 94.8 fl (85-98); Nucleated Red Blood Cells % 0 %; Platelet Count 83 10^3/cmm (157-399); Red Blood Count 2.12 10^6/uL (3.85-5.65); White Blood Count 1.28 10^3/uL (3.29-11.43)
[2025-08-09 01:16] LABS: Iron 117 ug/dL (37-145); Total Iron Binding Capacity 205 mcg/dl; Unsaturated Iron Binding 88 ug/dL (112-347)
[2025-08-09 01:32] LABS: Anion Gap 19.1 (5-19); Blood Urea Nitrogen 16 mg/dL (8-23); Calcium 8.3 mg/dL (8.5-10.5); Carbon Dioxide 18 mmol/L (22-29); Chloride 102 mmol/L (98-107); Glucose 132 mg/dL (65-115); Osmolality Calculated 283 mOsm/kg (285-295); Potassium 4.1 mmol/L (3.5-5.1); Sodium 135 mmol/L (136-145)
[2025-08-09 01:33] LABS: Ferritin 2517 ng/mL (15-150)
--- NOTE | 2025-08-09 01:38 | PC.NURSE ---
Blood was taken back to lab and laboratory manager said she would call the floor after she gets done testing the blood.
[2025-08-09 02:06] LABS: Glucose Urine UA 3+ (Normal); Nitrate Urine Negative (Negative); Specific Gravity, Urine 1.026 (1.005-1.030)
[2025-08-09 02:08] LABS: Add Urine Microscopic? YES
[2025-08-09 02:13] LABS: Hematocrit 20.1 % (36-47); Hemoglobin 6.40 g/dL (11.27-16.99); Slide Review Slide Review Perform
[2025-08-09 02:34] LABS: UA Slide Review UA Slide Review Perf
[2025-08-09] MEDS: cefTAZidime 2,000 mg SDV 2000 MG IVP ×3 (04:50→21:04)
[2025-08-09 05:26] LABS: C.Diff PCR (Lab) NEGATIVE (Negative)
--- NOTE | 2025-08-09 05:47 | PC.NURSE ---
While doing 0500 meds, pt requested that she be given levothyroxine alone, and then rest of meds later. Pt stated she does not take lisinopril in the AM.
[2025-08-09 06:05] LABS: Hemoglobin 6.60 g/dL (11.27-16.99); Mean Corpuscular HGB Conc 31.9 g/dL (30-55); Mean Corpuscular Hemoglobin 30.4 pg (27-33); Mean Corpuscular Volume 95.4 fl (85-98); Nucleated Red Blood Cells % 0 %; Platelet Count 66 10^3/cmm (157-399); Red Blood Count 2.17 10^6/uL (3.85-5.65); White Blood Count 1.28 10^3/uL (3.29-11.43)
--- NOTE | 2025-08-09 06:24 | PC.NURSE ---
Around 0300, lab called and stated the workup on the blood was negative. Dr. Hernandez ordered for more blood to be given. Blood started around 0330, and around 0350 pt started complaining of dizziness. Transfusion stopped and Dr. Hernandez notified. said to stop transfusion all together, discard blood, and he will make some calls in the morning.
[2025-08-09 06:29] LABS: Anion Gap 16.1 (5-19); Blood Urea Nitrogen 14 mg/dL (8-23); Calcium 8.5 mg/dL (8.5-10.5); Carbon Dioxide 23 mmol/L (22-29); Chloride 104 mmol/L (98-107); Glucose 117 mg/dL (65-115); Magnesium 1.4 mg/dL (1.7-2.3); Osmolality Calculated 290 mOsm/kg (285-295); Potassium 4.1 mmol/L (3.5-5.1); Sodium 139 mmol/L (136-145)
[2025-08-09 06:37] LABS: Hematocrit 20.7 % (36-47); Slide Review Slide Review Perform
[2025-08-09] MEDS: DAPAGLIFLOZIN 10 MG TABLET PO (08:28)
--- NOTE | 2025-08-09 09:04 | PM.PN ---
Subjective Subjective: The patient was seen in the morning, he was sleeping comfortably. On 1 to 2 L nasal cannula oxygen. No chest pain or headaches at the moment. No fevers or chills Blood transfusion ongoing with adequate monitoring. Vitals/I&O/Wt Last Vital Signs Temp 98.7 F 08/09/25 08:07 Pulse 73 08/09/25 08:07 Resp 16 08/09/25 08:07 BP 100/50 08/09/25 08:07 Pulse Ox 93 08/09/25 08:07 O2 Del Method Nasal Cannula 08/09/25 08:07 O2 Flow Rate 2 08/09/25 04:06 08/08/25 08/09/25 08/09/25 22:59 06:59 14:59 Intake Total 200 / 200 1630 / 1830 Output Total 50 / 50 Balance 200 / 200 1580 / 1780 Weight last 48 hrs Weight 64.41 kg Weight 64.41 kg Weight 62.142 kg Physical Exam Narrative: General: Alert and oriented, lying comfortably without any distress HEENT: Normocephalic, atraumatic, grossly unremarkable exam Cardio: normal rate rhythm, normal S1-S2 without any murmurs, rubs, or gallops and JVD normal Respiratory: normal vascular breathing on auscultation without any wheezes, stridor, rhonchi GI: Abdomen soft, nontender, nondistended, normoactive bowel sounds present all 4 quadrants, Neuro: intact cranial nerves motor and sensory and cerebellar/coordination function without any focal neurological deficit Behavior: Appropriate and cooperative Extremities: Adequate palpable pulses, mild trace edema Skin: Pallor positive Data 08/09/25 05:36 08/09/25 05:36 Micro: Microbiology 08/09/25 04:26 Occult Blood (FIT) - Final Stool Routine Collection 08/08/25 19:09 Blood Culture - Preliminary Blood SPECIMEN COLLECTED 08/08/25 19:07 Blood Culture - Preliminary Blood SPECIMEN COLLECTED A&P Assessment and plan 1. Anemia, unspecified type: - Likely related to her recent chemotherapy - Patient did not receive 1 unit of PRBC due to some reaction as reported by the morning nurse, currently ongoing transfusion --Monitor CBC after the blood transfusion and to keep hemoglobin above 7 - Occult stool negative. - Iron studies revealed low iron saturation normal TIBC and high ferritin, therefore correlates with mixed picture anemia but leaning towards more with iron deficiency as well, to start iron tablets - Frequent CBC monitoring -Monitor hemodynamics - Look for any obvious source of bleeding and monitor 2. Pancytopenia due to chemotherapy: Secondary to chemotherapy for small cell carcinoma, Continue monitor CBC Monitor platelets and obvious source of bleeding Transfusion to keep the hemoglobin above 7 If the platelets drop below 22,000-50,000 then to transfuse accordingly based on clinical assessment and obvious source of bleeding with anemia? Neutropenic precautions 3. Neutropenia: - Moderate neutropenia with ANC of 900 - Providing empiric antibiotics with Ceftazidime - Patient following with Dr. Mcgee, to discuss further about her condition and plan of care 4. Nausea and vomiting, unspecified vomiting type: - Supportive care with antiemetics. IVF if needed 5. COPD (chronic obstructive pulmonary disease): - Suspect exacerbation with her frequent coughing and now sputum production - Continue azithromycin for atypical coverage - Steroid in the form of prednisone 40mg daily(instead of her dexamethasone) - PRN breathing treatments - Follow sputum culture 6. Type 2 diabetes mellitus: - Hold oral antidiabetic medications(Farxiga okay) - Place on SSi 7. Hypothyroidism: Continue home dose levothyroxine 8. Small cell lung cancer, right lower lobe: Following with oncologist Dr. Mcgee Follow-up as outpatient, and is needed to discuss inpatient further management based on her clinical assessment and presentation Plan: Continue her other home medications for her chronic conditions PDMP PDMP Reviewed: Not Reviewed Attestations Medical Necessity Statement*: Patient will stay more than 2 midnights secondary to chemotherapy induced pancytopenia and other complications including diarrhea that requires monitoring and management Time Spent in Patient Care: 16 - 35 minutes (>than 50% of time spent in counselling and/or direct pt care on unit). Other Attestations: Patient condition has been discussed at length with the patient/family, I have independently reviewed the chart labs imaging/diagnostics/EKG. the goals of care and code status with the patient/family/NOK/legal account manager sales representative, and documented accordingly. I have reconciled the medications after confirmation/comorbidities/current clinical condition. The management has been done according to the current clinical condition with respect to patient goals of care and based on recommendations/guidelines. The patient/family has been informed about the current condition and further plan of care. Agreed with the plan of care and understood without any language barrier. Every effort was made to ensure accuracy of electrical maintenance supervisor. Any obvious errors or omissions should be clarified with the author of the document. Coding Level of Care Code 86952 Diagnoses Anemia, unspecified type D64.9 Anemia type: unspecified type Pancytopenia due to chemotherapy D61.810 Neutropenia D70.9 Nausea and vomiting, unspecified vomiting type R11.2 Vomiting type: unspecified COPD (chronic obstructive pulmonary disease) J44.9 Type 2 diabetes mellitus E11.9 Hypothyroidism E03.9 Small cell lung cancer, right lower lobe C34.31
--- NOTE | 2025-08-09 09:58 | PC.CHAP ---
Pastoral Care Encounter/Spiritual Assessment Type of Contact [] Declined lumber trimmer visit [] Patient/Family/Request visit [] Outpatient visit [] Follow-up visit [] Physician referral [] Code/Alert [] Routine visit [] Staff referral [] Actively dying [] Patient sleeping [] Family support [] [] Out of room [] Palliative care [] [] Receiving care in room [] Pre-surgical visit [] Trauma [] Long length of stay [] ICU visit [x] Other:Contact precautions. No visit. Relational/Emotional Strength [] Patient feels connected with others/family/visitors/staff [] Distress [] Loneliness/isolation [] Abandonment Spirituality of Patient [] Person of Sarah [] Attends Yazidism of their Sarah [] Believes in Prayer [] Reads Bible or Buddhism materials [] There are Spiritual issues to be addressed Fabrication Supervisor Interventions [] Prayer [] Active listening [] Non-anxious presence [] Spiritual/emotional support [] Crisis/trauma care [] Spiritual counseling [] Bereavement support [] Provided bereavement packet [] Provided Bible/devotional materials [] Provided toy/stuffed animal, coloring book to patient or family member [] Provided Communion [] Anointing/[place] [] Salvation [] Completed spiritual assessment [] Other: Impact on Illness or Injury [] Angry [] Fearful [] Anxious [] Often cries [] Exhaustion [] Unable to work [] Unable to attend yarsanism [] Unable to walk/stand [] Unable to read [] Unable to drive [] Unable to eat/drink [] Unable to sleep [] Unable to be with family [] Patient intubated [] Other: Summary Time spent with patient
[2025-08-09] MEDS: methylPREDNISolone sod succ 40 mg/mL INJ IVP (10:17)
[2025-08-09 17:58] LABS: Hematocrit 26.3 % (36-47); Hemoglobin 8.60 g/dL (11.27-16.99); Mean Corpuscular HGB Conc 32.7 g/dL (30-55); Mean Corpuscular Hemoglobin 31.0 pg (27-33); Mean Corpuscular Volume 94.9 fl (85-98); Nucleated Red Blood Cells % 0 %; Platelet Count 64 10^3/cmm (157-399); Red Blood Count 2.77 10^6/uL (3.85-5.65); White Blood Count 1.33 10^3/uL (3.29-11.43)
[2025-08-09 18:23] LABS: Slide Review Slide Review Perform
--- NOTE | 2025-08-09 21:35 | PC.NURSE ---
Pt platelets are 64. Dr. Hernandez said to hold scheduled Lovenox shot tonight.
[2025-08-10] VITALS (11 sets, daily range): BP systolic 91–158; BP diastolic 51–84; PULSE 59–81; RESP 16–19; TEMP 36.5–37; O2SAT 94–99
[2025-08-10] MEDS: cefTAZidime 2,000 mg SDV 2000 MG IVP ×3 (03:55→21:00)
[2025-08-10 05:32] LABS: Hematocrit 24.7 % (36-47); Hemoglobin 7.90 g/dL (11.27-16.99); Mean Corpuscular HGB Conc 32.0 g/dL (30-55); Mean Corpuscular Hemoglobin 30.3 pg (27-33); Mean Corpuscular Volume 94.6 fl (85-98); Nucleated Red Blood Cells % 0 %; Platelet Count 57 10^3/cmm (157-399); Red Blood Count 2.61 10^6/uL (3.85-5.65); White Blood Count 1.41 10^3/uL (3.29-11.43)
[2025-08-10 05:54] LABS: Alanine Aminotransferase 11 U/L (0-33); Albumin Level 3.7 g/dL (3.5-5.2); Alkaline Phosphatase 85 U/L (35-105); Anion Gap 20.5 (5-19); Aspartate Amino Transferase 11 U/L (0-32); Blood Urea Nitrogen 16 mg/dL (8-23); Calcium 9.1 mg/dL (8.5-10.5); Carbon Dioxide 18 mmol/L (22-29); Chloride 103 mmol/L (98-107); Globulin 2.5 g/dL (1.3-4.6); Glucose 77 mg/dL (65-115); Magnesium 1.4 mg/dL (1.7-2.3); Osmolality Calculated 284 mOsm/kg (285-295); Potassium 4.5 mmol/L (3.5-5.1); Sodium 137 mmol/L (136-145); Total Protein 6.2 g/dL (6.6-8.7)
[2025-08-10 06:00] LABS: Slide Review Slide Review Perform
[2025-08-10] MEDS: carbamide peroxide Otic 15 mL Btl 5 DROP EAR-BOTH (06:22)
[2025-08-10] MEDS: DAPAGLIFLOZIN 10 MG TABLET PO (07:52)
[2025-08-10] MEDS: magnesium sulfate premix 4 GM/100 ML PREMIX IV (09:34)
--- NOTE | 2025-08-10 11:04 | XRR_ITS ---
PROCEDURE INFORMATION: Exam: XR Chest Exam date and time: 08/10/2025 11:44 AM Age: 64 years old Clinical indication: Other: Swelling; Prior surgery; Surgery date: 6+ months; Surgery type: Port insertion; Additional info: Fluid overload; SOB; Edema TECHNIQUE: Imaging protocol: Radiologic exam of the chest. Views: 1 view. COMPARISON: CR (CHEST, ) 08/08/2025 07:18 PM FINDINGS: Tubes, catheters and devices: Right IJ MediPort catheter tip overlies the SVC. Lungs: See Pleural spaces finding. No pleural effusion or pneumothorax. Pleural spaces: Patchy left basilar airspace disease of the left costophrenic angle. Heart/Mediastinum: Cardiac size and configuration is stable. Bones/joints: Prior median sternotomy. Degenerative changes of the spine. Osteopenia. XR/XR chest 1V portable [id number] IMPRESSION: Patchy left basilar airspace disease at the left costophrenic angle, atelectasis versus developing pneumonia..
--- NOTE | 2025-08-10 14:49 | P.PN_ITS ---
Subjective 2 Subjective: The patient was seen in the morning, he was sleeping comfortably. Mild coughing and on fluids Fluids held, stat chest x-ray Patient received blood transfusion, CBC stable and hemoglobin above 7 No obvious source of bleeding. Patient feels much better and was asking to go home today however based on her blood counts informed that she still needs monitoring for safe discharge/disposition Vitals/I&O/Wt Last Vital Signs Temp 98.6 F 08/10/25 11:06 Pulse 71 08/10/25 11:52 Resp 18 08/10/25 11:52 BP 118/67 08/10/25 11:06 Pulse Ox 95 08/10/25 11:52 O2 Del Method Room Air 08/10/25 11:52 O2 Flow Rate 2 08/09/25 20:00 08/09/25 08/10/25 08/10/25 22:59 06:59 14:59 Intake Total 360 / 2310.000 1250 / 3560.000 150 / 150 Output Total 200 / 200 400 / 600 Balance 160 / 2110.000 850 / 2960.000 150 / 150 Weight last 48 hrs Weight 70.216 kg Weight 64.41 kg Weight 64.41 kg Weight 62.142 kg Physical Exam 2 Narrative: General: Alert and oriented, lying comfortably without any distress on 1 to 2 L with mild coughing without any wheezing or shortness of breath, able to speak in full sentences HEENT: Normocephalic, atraumatic, grossly unremarkable exam Cardio: normal rate rhythm, normal S1-S2 without any murmurs, rubs, or gallops and JVD normal Respiratory: normal vascular breathing on auscultation without any wheezes, stridor, rhonchi GI: Abdomen soft, nontender, nondistended, normoactive bowel sounds present all 4 quadrants, Neuro: intact cranial nerves motor and sensory and cerebellar/coordination function without any focal neurological deficit Behavior: Appropriate and cooperative Extremities: Adequate palpable pulses, mild trace edema Skin: Pallor positive Data 08/10/25 05:10 08/10/25 05:10 Micro: Microbiology 08/10/25 01:46 Gram Stain - Final Sputum - Expectorated Sputum 08/09/25 17:15 Urine Culture - Preliminary Urine,Voided 08/08/25 19:09 Blood Culture - Preliminary Blood NEGATIVE TO DATE 08/08/25 19:07 Blood Culture - Preliminary Blood NEGATIVE TO DATE A&P Assessment and plan 1. Sepsis: Small cell carcinoma s/p chemotherapy Presented with fever and element of pancytopenia suspicious for severe sepsis Patient received fluids, lactic acid 1.1, organs well-perfused Blood cultures sent, till date negative Continue broad-spectrum coverage with ceftazidime and azithromycin for possible atypical pneumonia? Cautious fluids since the patient might be at risk of fluid overload? Echo showed normal ejection fraction in April Maintain MAP above 65 2. Anemia, unspecified type: - Likely related to her recent chemotherapy - Patient is s/pMore or less 1 unit transfusion, hemoglobin stable above 7 and no obvious source of bleeding and stable hemodynamics. - Occult stool negative. - Iron studies revealed low iron saturation normal TIBC and high ferritin, therefore correlates with mixed picture anemia but leaning towards more with iron deficiency as well, to start iron tablets - Monitor CBC, hemodynamics and any obvious source of bleeding 3. Pancytopenia due to chemotherapy: Secondary to chemotherapy for small cell carcinoma, Continue monitor CBC, currently stable Monitor platelets and obvious source of bleeding Transfusion to keep the hemoglobin above 7 If the platelets drop below 22,000-50,000 then to transfuse accordingly based on clinical assessment and obvious source of bleeding with anemia? Neutropenic precautions 4. COPD (chronic obstructive pulmonary disease): - Suspect exacerbation with her frequent coughing and now sputum production - Continue azithromycin for atypical coverage - Steroid in the form of prednisone 40mg daily(instead of her dexamethasone) - Schedule DuoNebs as the patient was coughing - Stat chest x-ray showed patchy basilar left-sided airspace disease possible atelectasis versus pneumonia? -Requested respiratory viral panel - Sputum culture pending 5. Neutropenia: - Moderate neutropenia with ANC of 900 - Blood cultures negative till date - Providing empiric antibiotics with Ceftazidime and azithromycin, if no source of infection, de-escalating or discontinuing antibiotics/possible ID input as well considering patient's complexity of comorbidities and immunosuppressed status - Patient following with Dr. Mcgee, to discuss further about her condition and plan of care 6. Nausea and vomiting, unspecified vomiting type: - Supportive care with antiemetics. IVF if needed 7. Type 2 diabetes mellitus: - Hold oral antidiabetic medications, patient morning blood glucose was just 77 - Place on SSi and monitor blood glucose 8. Hypothyroidism: Continue home dose levothyroxine 9. Small cell lung cancer, right lower lobe: Following with oncologist Dr. Mcgee Follow-up as outpatient, and is needed to discuss inpatient further management based on her clinical assessment and presentation Plan: Continue her other home medications for her chronic conditions PDMP PDMP Reviewed: Not Reviewed Attestations 2 Medical Necessity Statement*: Patient will stay after midnight for the management of possible sepsis secondary to atypical pneumonia? and pancytopenia Induced by chemotherapy Time Spent in Patient Care: 16 - 35 minutes (>than 50% of time sp ent in counselling and/or direct pt care on unit) . Other Attestations: Patient condition has been discussed at length with the patient/family, I have independently reviewed the chart labs imaging/diagnostics/EKG. the goals of care and code status with the patient/family/NOK/legal front desk representative, and documented accordingly. I have reconciled the medications after confirmation/comorbidities/current clinical condition. The management has been done according to the current clinical condition with respect to patient goals of care and based on recommendations/guidelines. The patient/family has been informed about the current condition and further plan of care. Agreed with the plan of care and understood without any language barrier. Every effort was made to ensure accuracy of hydraulic plumber. Any obvious errors or omissions should be clarified with the author of the document. Coding Level of Care Code 90475 Diagnoses Sepsis A41.9 Anemia, unspecified type D64.9 Anemia type: unspecified type Pancytopenia due to chemotherapy D61.810 COPD (chronic obstructive pulmonary disease) J44.9 Neutropenia D70.9 Nausea and vomiting, unspecified vomiting type R11.2 Vomiting type: unspecified Type 2 diabetes mellitus E11.9 Hypothyroidism E03.9 Small cell lung cancer, right lower lobe C34.31
[2025-08-11] VITALS (10 sets, daily range): BP systolic 120–157; BP diastolic 55–78; PULSE 74–120; RESP 14–22; TEMP 36.6–36.9; O2SAT 90–99
[2025-08-11] MEDS: saline nasal spray 44mL Btl 1 SPRAY NASAL (00:48)
[2025-08-11 01:10] LABS: Coronavirus 229E,HKU1,NL63,OC4 Not Detected (NOT DETECT); Parainfluenza Virus Type 1 Not Detected (NOT DETECT); Parainfluenza Virus Type 2 Not Detected (NOT DETECT); Parainfluenza Virus Type 3 Not Detected (NOT DETECT); Parainfluenza Virus Type 4 Not Detected (NOT DETECT); SARS-COV-2 Not Detected (NOT DETECT)
[2025-08-11] MEDS: cefTAZidime 2,000 mg SDV 2000 MG IVP ×2 (03:38→11:55)
--- NOTE | 2025-08-11 05:58 | PC.NURSE ---
pt refused lisinopril this morning, stated she takes lisinopril at night, doc notified and agreed to change med to HS
[2025-08-11 06:24] LABS: Hematocrit 23.0 % (36-47); Hemoglobin 7.40 g/dL (11.27-16.99); Mean Corpuscular HGB Conc 32.2 g/dL (30-55); Mean Corpuscular Hemoglobin 30.6 pg (27-33); Mean Corpuscular Volume 95.0 fl (85-98); Nucleated Red Blood Cells % 0 %; Platelet Count 34 10^3/cmm (157-399); Red Blood Count 2.42 10^6/uL (3.85-5.65); White Blood Count 1.21 10^3/uL (3.29-11.43)
[2025-08-11 06:44] LABS: Alanine Aminotransferase 10 U/L (0-33); Albumin Level 3.4 g/dL (3.5-5.2); Alkaline Phosphatase 81 U/L (35-105); Anion Gap 22.9 (5-19); Aspartate Amino Transferase 11 U/L (0-32); Blood Urea Nitrogen 10 mg/dL (8-23); Calcium 9.0 mg/dL (8.5-10.5); Carbon Dioxide 17 mmol/L (22-29); Chloride 105 mmol/L (98-107); Globulin 2.6 g/dL (1.3-4.6); Glucose 96 mg/dL (65-115); Magnesium 1.6 mg/dL (1.7-2.3); Osmolality Calculated 291 mOsm/kg (285-295); Potassium 3.9 mmol/L (3.5-5.1); Sodium 141 mmol/L (136-145); Total Protein 6.0 g/dL (6.6-8.7)
[2025-08-11] MEDS: carbamide peroxide Otic 15 mL Btl 5 DROP EAR-BOTH (07:51)
[2025-08-11] MEDS: magnesium sulfate premix 4 GM/100 ML PREMIX IV (09:24)
--- NOTE | 2025-08-11 22:24 | P.DS_ITS ---
Discharge Providers Date of Admission: 08/08/25 20:18 Date of Discharge: August 11, 2025 Attending Provider at Admission: Rafi Hernandez MD Attending Provider at Discharge: Romi Couch MD Primary Care Provider: Jose Alfredo Bhatti MD Diagnoses at Discharge Discharge Diagnosis 1. Sepsis: 2. Anemia, unspecified type: 3. Pancytopenia due to chemotherapy: 4. COPD (chronic obstructive pulmonary disease): 5. Neutropenia: 6. Nausea and vomiting, unspecified vomiting type: 7. Type 2 diabetes mellitus: 8. Hypothyroidism: 9. 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 Daughter who is her information technology security analyst is present and aids in history gathering as patient is very hard of hearing. In addition to her lethargy, there are various other symptoms including a deviating gait, reports of vertigo, nausea, vomiting, and nose bleeds. No other bleeding to note off. I am told her last chemotherapy session was last . There have also been reports of chills but no fevers, bilateral lower extremity discomfort, cough, and recent diarrhea which has improved are imodium. No report of rashes or swelling. Hospital Course Hospital Course Patient admitted as a case of severe anemia and pancytopenia secondary to chemotherapy for her small cell lung carcinoma which was given to her on 08/03/2025 as per the retrospective note reviewed leading to neutropenia as well. Patient underwent sepsis workup considering her presentation with fever and shortness of breath. She was found to have human metapneumovirus positive which could be the possible cause of pneumonia on the left side. But during her hospital stay her platelets and neutropenia were trending down significantly. Therefore in anticipation of for further clinical deterioration and need of higher level of care as inpatient hematology oncology with further consideration of Neupogen or granulocyte stimulating factors to help with her counts and worsening of neutropenia which may lead to further neutropenic sepsis and deterioration, [facility] was contacted. And she was accepted for transfer Patient and the daughter was informed about the transfer and the need of higher level of care, they appreciated the plan of care and also proceeded for the transfer. Patient condition has been discussed at length with the patient/family, I have independently reviewed the chart labs imaging/diagnostics/EKG. the goals of care and code status with the patient/family/NOK/legal passenger service representative, and documented accordingly. I have reconciled the medications after confirmation/comorbidities/current clinical condition. The management has been done according to the current clinical condition with respect to patient goals of care and based on recommendations/guidelines. The patient/family has been informed about the current condition and further plan of care. Agreed with the plan of care and understood without any language barrier. Every effort was made to ensure accuracy of bottom stainer. Any obvious errors or omissions should be clarified with the author of the document. Physical Exam Narrative: General: Alert and oriented, lying comfortably without any distress on 1 to 2 L with mild coughing without any wheezing or shortness of breath, able to speak in full sentences HEENT: Normocephalic, atraumatic, grossly unremarkable exam Cardio: normal rate rhythm, normal S1-S2 without any murmurs, rubs, or gallops and JVD normal Respiratory: normal vascular breathing on auscultation without any wheezes, stridor, rhonchi GI: Abdomen soft, nontender, nondistended, normoactive bowel sounds present all 4 quadrants, Neuro: intact cranial nerves motor and sensory and cerebellar/coordination function without any focal neurological deficit Behavior: Appropriate and cooperative Extremities: Adequate palpable pulses, mild trace edema Skin: Pallor positive Discharge Data Studies Completed and Pending Completed Studies During Hospitalization Category Date Time Status XR chest 1V portable [id number] Stat Exams 08/08/25 19:02 Completed XR chest 1V portable [id number] Stat Exams 08/10/25 11:04 Completed Pending at discharge Category Date Time Status ABO/Rh Type Routine Lab 08/09/25 00:53 Results Blood Culture Stat Lab 08/08/25 19:09 Results Complete Crossmatch Routine Lab 08/09/25 00:53 Results Complete Crossmatch Stat Lab 08/08/25 19:38 Results Irrad Leukoreduced PLT Pher Stat Lab 08/08/25 19:38 Results Irradiated Red Blood Cells Routine Lab 08/09/25 00:53 Results Leukocyte Reduced RBC Stat Lab 08/08/25 19:38 Results Sputum Culture and Gram Stain Routine Lab 08/10/25 23:03 Results Sputum Culture and Gram Stain Stat Lab 08/10/25 01:46 Results Transfusion Reaction Routine Lab 08/09/25 00:53 Results Type and Screen Stat Lab 08/08/25 19:38 Results Radiology Impressions Chest X-Ray 08/10/25 11:04 IMPRESSION: Patchy left basilar airspace disease at the left costophrenic angle, atelectasis versus developing pneumonia.. Laboratory Results WBC 1.21 10^3/uL (3.29-11.43) L 08/11/25 05:40 RBC 2.42 10^6/uL (3.85-5.65) L 08/11/25 05:40 Hgb 7.40 g/dL (11.27-16.99) L 08/11/25 05:40 Hct 23.0 % (36-47) L 08/11/25 05:40 MCV 95.0 fl (85-98) 08/11/25 05:40 MCH 30.6 pg (27-33) 08/11/25 05:40 MCHC 32.2 g/dL (30-55) 08/11/25 05:40 RDW 15.9 % (12.1-15.1) H 08/11/25 05:40 Plt Count 34 10^3/cmm (157-399) L D 08/11/25 05:40 MPV 10.4 fL (7.4-10.4) 08/11/25 05:40 Neut % (Auto) 18.3 % 08/11/25 05:40 Lymph % (Auto) 66.9 % 08/11/25 05:40 [place] % (Auto) 9.9 % 08/11/25 05:40 Eos % (Auto) 0.8 % 08/11/25 05:40 Baso % (Auto) 0.0 % 08/11/25 05:40 Neut # (Auto) 0.22 10^3/uL (1.8-7.7) L* 08/11/25 05:40 Lymph # (Auto) 0.8 10^3/uL (0.8-4.8) 08/11/25 05:40 [place] # (Auto) 0.1 10^3/uL (0.2-0.9) L 08/11/25 05:40 Eos # (Auto) 0.0 10^3/uL (0.0-0.8) 08/11/25 05:40 Baso # (Auto) 0.0 10^3/uL (0.0-0.1) 08/11/25 05:40 Nucleated RBC % (auto) 0 % 08/11/25 05:40 Nucleated RBCs # 0.0 /100WBC 08/11/25 05:40 Haptoglobin 367.0 mg/L (30-200) H 08/09/25 00:53 Sodium 141 mmol/L (136-145) 08/11/25 05:40 Potassium 3.9 mmol/L (3.5-5.1) 08/11/25 05:40 Chloride 105 mmol/L (98-107) 08/11/25 05:40 Carbon Dioxide 17 mmol/L (22-29) L 08/11/25 05:40 Anion Gap 22.9 (5-19) H 08/11/25 05:40 BUN 10 mg/dL (8-23) 08/11/25 05:40 Creatinine 0.8 mg/dL (0.5-0.9) 08/11/25 05:40 GFR Calculation 72.4 mL/min (90-130) L 08/11/25 05:40 Glucose 96 mg/dL (65-115) 08/11/25 05:40 POC Glucose 360 mg/dL (70-110) H 08/11/25 11:06 Calculated Osmolality 291 mOsm/kg (285-295) 08/11/25 05:40 Calcium 9.0 mg/dL (8.5-10.5) 08/11/25 05:40 Phosphorus 2.0 mg/dL (2.5-4.5) L 08/11/25 05:40 Magnesium 1.6 mg/dL (1.7-2.3) L 08/11/25 05:40 Iron 117 ug/dL (37-145) 08/08/25 19:07 TIBC 205 mcg/dl 08/08/25 19:07 % Saturation 57.0 % (20-50) H 08/08/25 19:07 Unsat Iron Binding 88 ug/dL (112-347) L 08/08/25 19:07 Ferritin 2517 ng/mL (15-150) H 08/08/25 19:07 Total Bilirubin 0.3 mg/dL (0.15-1.2) 08/11/25 05:40 Direct Bilirubin 0.20 mg/dL (0.00-0.30) 08/09/25 00:53 Indirect Bilirubin 0.40 08/09/25 00:53 AST 11 U/L (0-32) 08/11/25 05:40 ALT 10 U/L (0-33) 08/11/25 05:40 Alkaline Phosphatase 81 U/L (35-105) 08/11/25 05:40 Lactate Dehydrogenase 245 U/L (135-214) H 08/09/25 00:53 Total Protein 6.0 g/dL (6.6-8.7) L 08/11/25 05:40 Albumin 3.4 g/dL (3.5-5.2) L 08/11/25 05:40 Globulin 2.6 g/dL (1.3-4.6) 08/11/25 05:40 Lipase 33 U/L (13-60) 08/08/25 19:07 Urine Color Yellow (Yellow) 08/09/25 01:52 Urine Appearance Cloudy (CLEAR) A 08/09/25 01:52 Urine pH 5.0 (5-7) 08/09/25 01:52 Ur Specific [place] 1.026 (1.005-1.030) 08/09/25 01:52 Urine Protein 1+ (Negative) A 08/09/25 01:52 Urine Glucose (UA) 3+ (Normal) H 08/09/25 01:52 Urine Ketones 2+ (Negative) H 08/09/25 01:52 Urine Blood Trace (Negative) A 08/09/25 01:52 Urine Nitrate Negative (Negative) 08/09/25 01:52 Urine Bilirubin Negative (Negative) 08/09/25 01:52 Urine Urobilinogen 0.2 mg/dL (Negative) 08/09/25 01:52 Ur Leukocyte Esterase Trace (Negative) A 08/09/25 01:52 Urine RBC 0-2 /hpf (0-2) 08/09/25 01:52 Urine WBC 21-50 /hpf (0-5) H 08/09/25 01:52 Ur Squamous Epith Cells 11-20 /hpf (0-5) H 08/09/25 01:52 Amorphous Sediment Not Reportable 08/09/25 01:52 Urine Bacteria None seen /hpf (NONE) 08/09/25 01:52 Hyaline Casts 7.01 /lpf 08/09/25 01:52 Urine Mucus 2+ /hpf 08/09/25 01:52 Urine Yeast 1+ /hpf H 08/09/25 01:52 Adenovirus (PCR) Not detected (NOT DETECT) 08/10/25 22:45 C. pneumoniae DNA (PCR) Not detected (NOT DETECT) 08/10/25 22:45 C. difficile (PCR) Negative (Negative) 08/09/25 04:26 Coronavirus 229E (PCR) Not detected (NOT DETECT) 08/10/25 22:45 Human Metapneumovir PCR Detected (NOT DETECT) A 08/10/25 22:45 Influenza A (H1) PCR Not detected (NOT DETECT) 08/10/25 22:45 Influenza A (PCR) Negative (Negative) 08/08/25 19:51 Influ A (H1/09) PCR Not detected (NOT DETECT) 08/10/25 22:45 Influenza A (H3) PCR Not detected (NOT DETECT) 08/10/25 22:45 Influenza Type A (PCR) Not detected (NOT DETECT) 08/10/25 22:45 Influenza Type B (PCR) Not detected (NOT DETECT) 08/10/25 22:45 M. pneumoniae (PCR) Not detected (NOT DETECT) 08/10/25 22:45 Parainfluenza 1 (PCR) Not detected (NOT DETECT) 08/10/25 22:45 Parainfluenza 2 (PCR) Not detected (NOT DETECT) 08/10/25 22:45 Parainfluenza 3 (PCR) Not detected (NOT DETECT) 08/10/25 22:45 Parainfluenza 4 (PCR) Not detected (NOT DETECT) 08/10/25 22:45 RSV (PCR) Negative (Negative) 08/08/25 19:51 RSV Type A (PCR) Not detected (NOT DETECT) 08/10/25 22:45 RSV Type B (PCR) Not detected (NOT DETECT) 08/10/25 22:45 Entero/Rhino (PCR) Not detected (NOT DETECT) 08/10/25 22:45 SARS-CoV-2 (PCR) Not detected (NOT DETECT) 08/10/25 22:45 Blood Type O Positive 08/08/25 19:38 Rho(D) Type Rh positive 08/08/25 19:38 Antibody Screen Negative 08/08/25 19:38 МАРИЯ, IgG Interpret Cancelled 08/09/25 00:53 МАРИЯ, Poly Interpret Cancelled 08/09/25 00:53 МАРИЯ, Complement Interp Cancelled 08/09/25 00:53 Crossmatch See Detail 08/08/25 19:38 Reaction Clerical Check No discrepancy 08/09/25 00:53 Pre-Trans Blood Type Op 08/09/25 00:53 Post-Trans Blood Type O Positive 08/09/25 00:53 Post-Tx Visible Hemolys No hemolysis 08/09/25 00:53 Post-Trans МАРИЯ Negative 08/09/25 00:53 Vitals Last Vital Signs Temp 98.4 F 08/11/25 16:08 Pulse 79 08/11/25 16:08 Resp 16 08/11/25 16:08 BP 120/55 08/11/25 16:08 Pulse Ox 95 08/11/25 16:08 O2 Del Method Room Air 08/11/25 16:00 O2 Flow Rate 3 08/11/25 15:49 Discharge Plan Discharge Patient Disposition: Xfer Other Condition: Stable Prescriptions: No Action metoprolol tartrate 25 mg tablet 25 mg PO BID (DME) Dexcom G7 Sensor Device See Rx Instructions .MEDSUPPLY Qty: 1 2RF Rx Instructions: As directed (DME) Dexcom G7 Business System Manager Misc See Rx Instructions miscellaneous .MEDSUPPLY Qty: 1 0RF Rx Instructions: As directed dapagliflozin propanediol [Farxiga] 10 mg tablet 10 mg PO QAM Qty: 30 2RF (DME) Dexcom G7 Transmitter device See Rx Instructions .ROUTE .MEDSUPPLY Qty: 1 2RF Rx Instructions: As directed insulin lispro [Humalog KwikPen Insulin] 100 unit/mL insulin pen 1 unit SUBCUT .COMPLEX Qty: 15 0RF Rx Instructions: Use moderate sliding scale with dosing four times daily (DME) lancets Misc See Rx Instructions .MEDSUPPLY Qty: 200 0RF Rx Instructions: Use as directed to prick skin for blood sugar checks (DME) blood-glucose meter Misc See Rx Instructions .MEDSUPPLY Qty: 1 0RF Rx Instructions: Use as directed for checking blood sugar (DME) Blood Glucose Test Strip See Rx Instructions .MEDSUPPLY Qty: 200 0RF Rx Instructions: Use as directed with glucometer to check blood sugar simvastatin 20 mg tablet 20 mg PO ONCE (DME) lancets [TRUEplus Lancets] 28 gauge misc See Rx Instructions .ROUTE .MEDSUPPLY Qty: 100 Rx Instructions: As directed ipratropium-albuterol 0.5 mg-3 mg(2.5 mg base)/3 mL solution for nebulization 3 ml inhalation Q6H PRN (Reason: wheezing) Qty: 90 6RF (DME) mucus clearing device Device See Rx Instructions .MEDSUPPLY Qty: 1 0RF Rx Instructions: As directed lisinopril 20 mg tablet 20 mg PO DAILY glipizide 5 mg tablet 10 mg PO BID albuterol sulfate [Ventolin HFA] 90 mcg/actuation HFA aerosol inhaler 2 puff inhalation Q6H PRN (Reason: Shortness Of Breath) Qty: 8.5 3RF Spiriva Respimat 2.5 mcg/actuation mist 2 puff inhalation DAILY Qty: 4 3RF sucralfate [Carafate] 1 gram tablet 1 g PO TID Qty: 30 0RF diazepam [Valium] 10 mg tablet 10 mg PO .COMPLEX PRN (Reason: anxiety) Qty: 6 0RF Rx Instructions: 10 mg orally PRN prior to test omeprazole 40 mg capsule,delayed release(DR/EC) 40 mg PO DAILY Qty: 30 0RF lidocaine-prilocaine 2.5-2.5 % cream 1 applic topical .COMPLEX Qty: 30 2RF Rx Instructions: Apply quarter-size amount to port site 30 minutes prior to access; cover with cling wrap scopolamine base 1 mg over 3 days patch 3 day 1 patch transdermal Q3D PRN (Reason: nausea and vomiting) Qty: 10 0RF Rx Instructions: place behind ear every 3 days as need prochlorperazine maleate [Compazine] 10 mg tablet 10 mg PO Q6H PRN (Reason: nausea and vomiting) Qty: 30 3RF Rx Instructions: DO NOT TAKE DIRECTLY WITH ONDANESTRON AND MUST STOP SCOPALOMINE PATCH PRIOR TO USE may alternate with lorazepam (take one medication-example: Compazine-and then in 3 hours may try lorazepam and then repeat Compazine 3 hours after the lorazepam so still takes each agent every 6 hours. dexamethasone 2 mg tablet 2 mg PO BID Qty: 30 0RF lorazepam 0.5 mg tablet 0.5 mg PO Q6H PRN (Reason: nausea and vomiting) Qty: 30 1RF Rx Instructions: 1/2 to 2 tablets oral or sublingual every 6 hours promethazine 25 mg tablet 25 mg PO Q6H PRN (Reason: nausea and vomiting) Qty: 60 3RF ondansetron 8 mg tablet,disintegrating 8 mg PO Q8H PRN (Reason: nausea and vomiting) Qty: 90 6RF levothyroxine 88 mcg tablet 88 mcg PO DAILY albuterol sulfate [Ventolin HFA] 90 mcg/actuation HFA aerosol inhaler 2 puff INHALATION Q6H cephalexin 500 mg capsule 500 mg PO TID 7 Days Qty: 21 0RF hydrocodone-acetaminophen 5-325 mg tablet 1 tab PO Q8H PRN (Reason: pain) Qty: 14 0RF Discharge Order = DC NOW: Discharge Order (Routine); Ordered 08/11/25 Ordered By: Romi Couch Referrals: Jose Alfredo Bhatti MD [Primary Care Provider, [facility]] Discharge Diet: Advance as tolerated Discharge Activity: Resume usual activity Patient Instructions: Opioid Safety, Patient Portal & [place] Instructions Discharge Attestations Time Spent in Discharge Care*: greater than 30 min Specific Discharge Activities: educating patient, educating and/or supporting family/caregiver, discussing with pcp/other providers, discussing with employment case manager/social workers/dc planners, documenting/other paperwork and evaluating patient/reviewing data Status at Discharge: Cognitive status at discharge: cognitively intact , Behavioral status at discharge: cooperative , Functional status at discharge: independent ambulation , Overall status at discharge: patient is not back to baseline Quality Metrics Clinical Quality Measures [ No reported AMI, CVA or VTE this stay] Coding Level of Care Code 09250 Diagnoses Sepsis A41.9 Anemia, unspecified type D64.9 Anemia type: unspecified type Pancytopenia due to chemotherapy D61.810 COPD (chronic obstructive pulmonary disease) J44.9 Neutropenia D70.9 Nausea and vomiting, unspecified vomiting type R11.2 Vomiting type: unspecified Type 2 diabetes mellitus E11.9 Hypothyroidism E03.9 Small cell lung cancer, right lower lobe C34.31
== END 2025-08-11 16:09 | disposition short-term general hospital (02) | DRG 720 ==
LOC: ER 20:37 → MEDSURG 20:49
PROVIDERS: Admitting Provider Family Medicine; Emergency Provider Family Medicine; PCP Family Medicine; Visit Provider Student in an Organized Health Care Education/Training Program
DX: A41.9 Sepsis, unspecified organism (principal); R65.20 Severe sepsis without septic shock; C34.31 Malignant neoplasm of lower lobe, right bronchus or lung; D64.81 Anemia due to antineoplastic chemotherapy; J18.9 Pneumonia, unspecified organism; T45.1X5A Adverse effect of antineoplastic and immunosuppressive drugs, initial encounter; C79.31 Secondary malignant neoplasm of brain; Z87.891 Personal history of nicotine dependence; D61.810 Antineoplastic chemotherapy induced pancytopenia; J44.1 Chronic obstructive pulmonary disease with (acute) exacerbation; J44.0 Chronic obstructive pulmonary disease with (acute) lower respiratory infection; E11.9 Type 2 diabetes mellitus without complications; E03.9 Hypothyroidism, unspecified; N39.0 Urinary tract infection, site not specified; I10 Essential (primary) hypertension; Z99.81 Dependence on supplemental oxygen; Z79.4 Long term (current) use of insulin; Z79.84 Long term (current) use of oral hypoglycemic drugs
CPT/HCPCS: 36415; 36416; 36430; 71045; 80048; 80053; 80503; 81001; 82247; 82248; 82274; 82728; 82962; 83010; 83540; 83550; 83615; 83690; 83735; 84100; 85025; 86850; 86900; 86920; 87040; 87070; 87086; 87205; 87486; 87493; 87581; 87633; 87637; 94640; 96372; J0456; J0713; J1650; J1815; J2405; J2919; J3475; J7030; J7050; J7512; J7644; J9999; P9016; P9040; Q0163; Q5101